=== PATIENT | male | born 1955 | race African-American/Black ===

== ENCOUNTER → 2016-05-15 | Day surgery (SDC) | payer OTHER ==
[~2016-05-15] MED LIST: BUPIVACAINE HCL 0.5 % INJ/PF 30 ML SDV ONE; LIDOCAINE 1% INJ-PF (10 MG/ML) 30 ML SDV ONE; METHYLPREDNISOLONE ACETATE INJ 40 MG/1 ML ML ONE
== END ==
LOC: RAD 12:25
PROVIDERS: ATTEND Radiology Diagnostic Radiology
PROC: 3E0U33Z Introduction of Anti-inflammatory into Joints, Percutaneous Approach (ICD-10-PCS; principal; 2016-05-15)
DX: M16.12 Unilateral primary osteoarthritis, left hip (principal)
CPT/HCPCS: 73501; 20610; 77002; J3490; J1020

== ENCOUNTER → 2016-10-02 | Outpatient (CLI) | payer OTHER ==
[2016-10-02 12:39] LABS: ABSOLUTE EOSINOPHILS # (AUTO) 0.1 10^3/uL (0.0-0.6); ABSOLUTE LYMPHOCYTES (AUTO) 1.4 10^3/uL (0.5-4.7); ABSOLUTE MONOCYTES (AUTO) 0.4 10^3/uL (0.1-1.4); ABSOLUTE NEUT (AUTO) 2.6 10^3/uL (1.7-8.2); BASOPHILS % (AUTO) 0.8 % (0-2); EOSINOPHILS % (AUTO) 1.1 % (0-6); HEMATOCRIT 39.5 % (37.9-51.0); HEMOGLOBIN 12.9 g/dL (13.5-17.0); HGB HCT DIFFERENCE -0.8; LYMPHOCYTES % (AUTO) 30.8 % (13-45); MEAN CORPUSCULAR HEMOGLOBIN 28.4 pg (27.0-33.4); MEAN CORPUSCULAR HGB CONC 32.6 g/dL (32.0-36.0); MEAN CORPUSCULAR VOLUME 87 fl (80-97); MONOCYTES % (AUTO) 9.5 % (3-13); RED BLOOD COUNT 4.55 10^6/uL (4.35-5.55); RED CELL DISTRIBUTION WIDTH 15.5 % (11.5-14.0); SEGMENTED NEUTROPHILS % (AUTO) 57.8 % (42-78); WHITE BLOOD COUNT 4.4 10^3/uL (4.0-10.5)
[2016-10-02 12:50] LABS: APPEARANCE,URINE SLIGHTLY-CLOUDY; BILIRUBIN,URINE NEGATIVE (NEGATIVE); CALCIUM OXALATE CRYSTALS,URINE FEW /HPF; GLUCOSE, URINE NEGATIVE (NEGATIVE); KETONES,URINE NEGATIVE (NEGATIVE); LEUKOCYTE ESTERASE,URINE NEGATIVE (NEGATIVE); NITRITE,URINE NEGATIVE (NEGATIVE); PROTEIN,URINE 30 mg/dL (NEGATIVE); URINE SPECIFIC GRAVITY 1.035
[2016-10-02 13:03] LABS: ANION GAP 11 (5-19); BLOOD UREA NITROGEN 16 mg/dL (7-20); CARBON DIOXIDE 28 mmol/L (22-30); CHLORIDE 102 mmol/L (98-107); CREATININE RESULT 0.97 mg/dL (0.52-1.25); GLUCOSE 130 mg/dL (75-110); POTASSIUM 3.9 mmol/L (3.6-5.0); SODIUM 141.4 mmol/L (137-145)
--- NOTE | 2016-10-02 13:24 | RADIOLOGY REPORT (SQ) ---
EXAM DESCRIPTION: CHEST PA/LATERAL COMPLETED DATE/TIME: 10/02/2016 12:23 pm REASON FOR STUDY: PRE OP COMPARISON: 03/13/2010 EXAM PARAMETERS: NUMBER OF VIEWS: two views TECHNIQUE: Digital Frontal and Lateral radiographic views of the chest acquired. RADIATION DOSE: NA LIMITATIONS: none FINDINGS: LUNGS AND PLEURA: No opacities, masses or pneumothorax. No pleural effusion. There is hyp erexpansion. MEDIASTINUM AND HILAR STRUCTURES: No masses or contour abnormalities. HEART AND VASCULAR STRUCTURES: Heart normal size. No evidence for failure. BONES: No acute findings. HARDWARE: None in the chest. OTHER: No other significant finding. IMPRESSION: Hyperexpansion consistent with COPD. No acute findings. TECHNICAL DOCUMENTATION: JOB ID: [id number] [employer]- All Rights Reserved
--- NOTE | 2016-10-02 20:10 | EKG REPORT ---
SEVERITY:- NORMAL ECG - SINUS RHYTHM : Confirmed by: Jeanne Wilkins 02-Oct-2016 20:08:54
== END ==
LOC: OD 11:38
PROVIDERS: ATTEND Orthopaedic Surgery
DX: Z01.818 Encounter for other preprocedural examination (principal)
CPT/HCPCS: 36415; 71020; 80048; 81001; 85025; 93005; 93010

== ENCOUNTER 2016-10-26 05:22 | Inpatient (IN) | payer OTHER ==
[~2016-10-26 05:22] MED LIST changes: -BUPIVACAINE HCL 0.5 % INJ/PF 30 ML SDV ONE; +BUPIVACAINE INJ/PF LIPOSOME/PF 266 MG/20 ML SDV IJ PRN; +CEFAZOLIN 2 GM/D5W RTU 2 GM/50 ML RTUPB IV PRN; +IBUPROFEN 800 MG/NS 250 ML IV PRN; +LACTATED RINGERS 1000 ML IV PRN; +LANSOPRAZOLE 15 MG TAB.RAP.DR PO PRN; -LIDOCAINE 1% INJ-PF (10 MG/ML) 30 ML SDV ONE; -METHYLPREDNISOLONE ACETATE INJ 40 MG/1 ML ML ONE; +OXYCODONE HCL SR 10 MG TABLET PO PRN; +SCOPOLAMINE HYDROBROMIDE 1.5 MG PATCH.TD72 TOP PRN
[2016-10-26] MEDS ORDERED: THROMBIN (BOVINE) 5000 UNIT EPITAXIS KIT ONE (06:46)
[2016-10-26] MEDS ORDERED: THROMBIN (BOVINE) TOPICAL 20000 UNIT VIAL ONE (06:46)
[2016-10-26] MEDS ORDERED: FENTANYL CITRATE INJ/PF 100 MCG/2 ML AMPUL ONE ×2 (06:52→11:32)
[2016-10-26] MEDS ORDERED: MIDAZOLAM 2 MG/2 ML INJ ONE (06:52)
[2016-10-26] MEDS ORDERED: FENTANYL CITRATE INJ/PF 250 MCG/5 ML AMPULE ONE (06:52)
[2016-10-26] MEDS ORDERED: IBUPROFEN INJ 800 MG/8 ML VIAL IV ONE (06:53)
[2016-10-26] MEDS ORDERED: EPHEDRINE SULFATE INJ 50 MG/1 ML AMPULE ONE (06:53)
[2016-10-26] MEDS ORDERED: PROPOFOL INJ 200 MG/20 ML VIAL IV ONE ×3 (06:53→11:04)
[2016-10-26] MEDS ORDERED: BUPIVACAINE INJ/PF LIPOSOME/PF 266 MG/20 ML SDV ONE (07:25)
[2016-10-26] MEDS ORDERED: KETAMINE HCL INJ 500 MG/10 ML VIAL ONE (07:26)
[2016-10-26] MEDS ORDERED: FENTANYL CITRATE INJ/PF 100 MCG/2 ML AMPUL IV PRN ×3 (09:00)
[2016-10-26] MEDS ORDERED: DIPHENHYDRAMINE HCL 50 MG/ML VIAL IV PRN (09:00)
[2016-10-26] MEDS ORDERED: PROMETHAZINE HCL INJ 25 MG/1 ML VIAL IV PRN (09:00)
--- NOTE | 2016-10-26 11:38 | RADIOLOGY REPORT (SQ) ---
EXAM DESCRIPTION: KNEE LEFT 2 VIEWS COMPLETED DATE/TIME: 10/26/2016 11:23 am REASON FOR STUDY: a/p and lateral in pacu postop M17.12 UNILATERAL PRIMARY OSTEOARTHRITIS, LEFT K NEE COMPARISON: None. NUMBER OF VIEWS: Two view(s). TECHNIQUE: Digital radiographic images of the left knee post-procedure. LIMITATIONS: None. FINDINGS: BONES: No evidence of fracture. Small postoperative bony fragments adjacent to the joint. DEVICE: Total knee arthroplasty. SOFT TISSUES: No worrisome findings. Expected postoperative soft tissue changes. IMPRESSION: Status post left total knee replacement. TECHNICAL DOCUMENTATION: JOB ID: [id number] [employer]- All Rights Reserved
--- NOTE | 2016-10-26 11:52 | Operative Report ---
Operative Report DATE OF SURGERY: 10/26/16 PREOPERATIVE DIAGNOSIS: Left knee osteoarthritis POSTOPERATIVE DIAGNOSIS: Same OPERATION: Left total knee arthroplasty SURGEON: DONA GALVEZ ANESTHESIA: GA TISSUE REMOVED OR ALTERED: none COMPLICATIONS: None ESTIMATED BLOOD LOSS: 50mL INTRAOPERATIVE FINDINGS: as Above PROCEDURE: After receiving preoperative antibiotics patient was brought to the operating room and given a spinal anesthetic. Patient then was placed in supine position and thigh tourniquet was applied to left lower extremity. Left lower extremity was prepped and draped in a normal sterile surgical fashion timeout was done identifying the left knee as the correct site. Extremity was elevated and the tourniquet was inflated at 280 mmHg. Midline incision was done over the knee. Dissection was taken down to the capsule and expose the patellar tendon and quadriceps tendon. I did a medial parapatellar approach to the knee and expose the joint. I resected part of the fat pad and everted the patella and flexed knee at 90. Resected what I could visualize of the lateral and medial meniscus and I transected the ACL and PCL. I proceeded then to prepare the femoral side. I drilled intramedullary and placed the distal cutting guide. It was set at 5 and 10 mm cup. I proceeded to use my saw to do my distal cut and then sized the femur to be a size 6. Placed my 4-in-1 cutting guide and proceeded to do my anterior, posterior and chamfers. Then proceeded to do my box cut with the box jig placed and pinned proper placement. This was removed and I then exposed the tibia where he proceeded to do my first initial tibial cut taking 6 mm off of the high side. Noted that was tight medially so proceeded to take 2 more millimeters. At this point I noticed that 1 of the pins have moved and my cut was often I was in varus I had to proceed to placed the alignment guide and to further resection of the medial side to correct the deformity. At this point I then used the alignment guide and measured again my alignment and line with the tibia through the ankle into the second toe. At this point and I proceeded to trial components and used a [address] up to a 16 spacer. Spacer gave me that ligament balance. Able to get full extension and full flexion. I proceeded to remove the trial components and clean the bone and prepare the tibial side for the tibial tray insertion. This point and I proceeded to cement the tibial tray followed by the femoral tray and the placed a 60 mm spacer. The tibia had been cut to 10 mm and I placed a 35 mm trial after drilling the appropriate holes. The patellar component was cemented in as well. One cement was hardened the excess cement was removed with an osteotome and pickups. Trial of the 16 mm spacer again and I was still satisfied with my ligament balance and in extension and flexion. I removed the trial component and placed a 16 mm final spacer. This was locked in and I proceeded to place my Exparel local anesthetic. Tourniquet was let down at 120 minutes. Any active bleeders were coagulated with the Bovie and pickups. I proceeded to close the capsule using #1 Vicryl and a [id number] interrupted stitch fashion. We approximated subcutaneous tissue with 0 Vicryl in the dermis with 2-0 Vicryl. I used jorge for the skin. The extremity was covered with Acticoat, 4 x 4 dressing, abdominal pads and overwrapped with a soft sterile roll. I will wrapped extremity with Paul bandage and drapes were removed. Patient was then successfully transferred to PACU in a stable condition. Sohail femur size 6 left posterior stabilizing #5 tibial tray 16 mm spacer
[2016-10-26] MEDS ORDERED: LIDOCAINE 2% INJ-PF (20 MG/ML) 10 ML AMPUL ONE (12:51)
[2016-10-26] MEDS ORDERED: ONDANSETRON HCL INJ/PF 4 MG/2 ML SDV ONE (12:51)
[2016-10-26] MEDS: OXYCODONE-ACETAMINOPHEN 5-325 MG TABLET PO PRN (13:18)
[2016-10-26] MEDS: CEFAZOLIN 2 GM/D5W RTU 2 GM/50 ML RTUPB IV SCH ×2 (13:41→22:03)
[2016-10-26] MEDS ORDERED: NORMAL SALINE 1000 ML 1,000 ML IV ONE (15:45)
[2016-10-26] MEDS: RINGERS SOLUTION,LACTATED 1,000 ML IV PRN ×2 (16:36→22:03)
[2016-10-26] MEDS: DOCUSATE SODIUM 100 MG CAPSULE PO SCH (17:29)
[2016-10-26] MEDS: MORPHINE SULFATE 10 MG/ML INJ IV PRN ×2 (17:41→20:25)
[2016-10-27] MEDS: MORPHINE SULFATE 10 MG/ML INJ IV PRN ×4 (01:08→09:42)
[2016-10-27 06:34] LABS: ABSOLUTE LYMPHOCYTES (AUTO) 0.8 10^3/uL (0.5-4.7); ABSOLUTE NEUT (AUTO) 6.3 10^3/uL (1.7-8.2); BASOPHILS % (AUTO) 0.4 % (0-2); HEMATOCRIT 27.8 % (37.9-51.0); HEMOGLOBIN 9.4 g/dL (13.5-17.0); HGB HCT DIFFERENCE 0.4; LYMPHOCYTES % (AUTO) 10.4 % (13-45); MEAN CORPUSCULAR VOLUME 85 fl (80-97); RED BLOOD COUNT 3.26 10^6/uL (4.35-5.55); RED CELL DISTRIBUTION WIDTH 15.2 % (11.5-14.0); SEGMENTED NEUTROPHILS % (AUTO) 77.2 % (42-78); WHITE BLOOD COUNT 8.1 10^3/uL (4.0-10.5)
[2016-10-27 06:52] LABS: ANION GAP 10 (5-19); BLOOD UREA NITROGEN 11 mg/dL (7-20); CALCIUM 9.4 mg/dL (8.4-10.2); CARBON DIOXIDE 26 mmol/L (22-30); CHLORIDE 100 mmol/L (98-107); CREATININE RESULT 0.86 mg/dL (0.52-1.25); GLUCOSE 118 mg/dL (75-110); POTASSIUM 3.9 mmol/L (3.6-5.0); SODIUM 136.3 mmol/L (137-145)
[2016-10-27] MEDS: DOCUSATE SODIUM 100 MG CAPSULE PO SCH ×2 (09:42→17:16)
[2016-10-27] MEDS: AMLODIPINE BESYLATE 10 MG TABLET PO SCH (09:42)
[2016-10-27] MEDS: OXYCODONE-ACETAMINOPHEN 5-325 MG TABLET PO PRN ×2 (12:54→20:20)
--- NOTE | 2016-10-27 15:47 | PDOC PROGRESS REPORT ---
Subjective Progress Note for:: 10/27/16 Subjective:: Patient is resting in bed. Complaining of left knee pain. Patient states he was sore in painful and cannot participate with therapy today. Otherwise no issues overnight. Physical Exam Vital Signs: Temp Pulse Resp BP Pulse Ox 36.7 C 86 14 146/76 H 97 10/26/16 23:53 10/27/16 05:00 10/26/16 23:53 10/27/16 05:00 10/27/16 03:39 Intake & Output 10/26/16 10/27/16 10/28/16 06:59 06:59 06:59 Intake Total 0 5290 Output Total 2600 Balance 0 2690 General appearance: PRESENT: no acute distress Adult Front & Back Image: 1 - Dressing is dry clean and intact. Soft calves to palpation. Neurovascular intact distally with good capillary refill and pulse and good sensation to light touch. Motor 5 out of 5 on exam. Results Laboratory Results: 10/27/16 06:23 10/27/16 06:23 10/27/16 10/27/16 06:23 06:23 WBC 8.1 RBC 3.26 L Hgb 9.4 L Hct 27.8 L MCV 85 MCH 29.0 MCHC 34.0 RDW 15.2 H Plt Count 200 Seg Neutrophils % 77.2 Lymphocytes % 10.4 L Monocytes % 12.0 Eosinophils % 0.0 Basophils % 0.4 Absolute Neutrophils 6.3 Absolute Lymphocytes 0.8 Absolute Monocytes 1.0 Absolute Eosinophils 0.0 Absolute Basophils 0.0 Sodium 136.3 L Potassium 3.9 Chloride 100 Carbon Dioxide 26 Anion Gap 10 BUN 11 Creatinine 0.86 Est GFR ( Amer) > 60 Est GFR (Non-Af Amer) > 60 Glucose 118 H Calcium 9.4 Impressions: Knee X-Ray 10/26/16 11:08 IMPRESSION: Status post left total knee replacement. Assessment & Plan - Plan Summary Plan Summary: 61-year-old gentleman postop day 1 from left total knee arthroplasty. Explain the necessity to participate with physical therapy to allow him to go home. Patient states he will work with him and attempt to be discharged home. He has walked 100 feet so he probably will be started with home health at discharge tomorrow or Sunday. Continue Xarelto for DVT prophylaxis and continue Percocet for pain control.
[2016-10-27] MEDS: RIVAROXABAN 10 MG TABLET PO SCH (21:31)
[2016-10-28] MEDS: OXYCODONE-ACETAMINOPHEN 5-325 MG TABLET PO PRN ×3 (04:40→12:40)
[2016-10-28 05:38] LABS: ABSOLUTE LYMPHOCYTES (AUTO) 0.9 10^3/uL (0.5-4.7); ABSOLUTE MONOCYTES (AUTO) 1.7 10^3/uL (0.1-1.4); BASOPHILS % (AUTO) 0.2 % (0-2); HEMATOCRIT 24.6 % (37.9-51.0); HEMOGLOBIN 8.3 g/dL (13.5-17.0); HGB HCT DIFFERENCE 0.3; LYMPHOCYTES % (AUTO) 8.6 % (13-45); MEAN CORPUSCULAR HEMOGLOBIN 28.5 pg (27.0-33.4); MEAN CORPUSCULAR HGB CONC 33.8 g/dL (32.0-36.0); MEAN CORPUSCULAR VOLUME 84 fl (80-97); MONOCYTES % (AUTO) 16.1 % (3-13); RED BLOOD COUNT 2.92 10^6/uL (4.35-5.55); RED CELL DISTRIBUTION WIDTH 15.1 % (11.5-14.0); SEGMENTED NEUTROPHILS % (AUTO) 75.1 % (42-78); WHITE BLOOD COUNT 10.7 10^3/uL (4.0-10.5)
[2016-10-28 05:54] LABS: ANION GAP 10 (5-19); BLOOD UREA NITROGEN 9 mg/dL (7-20); CALCIUM 9.7 mg/dL (8.4-10.2); CARBON DIOXIDE 28 mmol/L (22-30); CHLORIDE 97 mmol/L (98-107); CREATININE RESULT 0.82 mg/dL (0.52-1.25); GLUCOSE 122 mg/dL (75-110); POTASSIUM 3.8 mmol/L (3.6-5.0); SODIUM 134.7 mmol/L (137-145)
[2016-10-28] MEDS: AMLODIPINE BESYLATE 10 MG TABLET PO SCH (09:11)
[2016-10-28] MEDS: DOCUSATE SODIUM 100 MG CAPSULE PO SCH ×2 (09:11→17:12)
--- NOTE | 2016-10-28 11:23 | PDOC PROGRESS REPORT ---
Subjective Progress Note for:: 10/28/16 Subjective:: Patient without specific complaints except anorexia Physical Exam Vital Signs: Temp Pulse Resp BP Pulse Ox 37.0 C 105 H 14 143/75 H 94 10/28/16 07:43 10/28/16 07:43 10/28/16 07:43 10/28/16 07:43 10/28/16 07:43 Intake & Output 10/27/16 10/28/16 10/29/16 06:59 06:59 06:59 Intake Total 5290 1013 Output Total 2600 2600 Balance 2690 -1587 General appearance: PRESENT: no acute distress Head exam: PRESENT: normocephalic Eye exam: PRESENT: EOMI Respiratory exam: PRESENT: unlabored Cardiovascular exam: PRESENT: RRR Pulses: PRESENT: +1 pedal pulses bilateral GI/Abdominal exam: PRESENT: soft Rectal exam: PRESENT: deferred Extremities exam: PRESENT: other - Left lower extremity dressing changed. Wound is clean dry and intact. OpSite applied. Neurological exam: PRESENT: alert, awake, oriented to person, oriented to place , oriented to time, oriented to situation. ABSENT: motor sensory deficit Psychiatric exam: PRESENT: appropriate affect, normal mood. ABSENT: homicidal ideation, suicidal ideation Skin exam: PRESENT: dry, intact, warm. ABSENT: cyanosis, rash Results Laboratory Results: 10/28/16 05:29 10/28/16 05:29 10/28/16 10/28/16 05:29 05:29 WBC 10.7 H RBC 2.92 L Hgb 8.3 L Hct 24.6 L MCV 84 MCH 28.5 MCHC 33.8 RDW 15.1 H Plt Count 185 Seg Neutrophils % 75.1 Lymphocytes % 8.6 L Monocytes % 16.1 H Eosinophils % 0.0 Basophils % 0.2 Absolute Neutrophils 8.0 Absolute Lymphocytes 0.9 Absolute Monocytes 1.7 H Absolute Eosinophils 0.0 Absolute Basophils 0.0 Sodium 134.7 L Potassium 3.8 Chloride 97 L Carbon Dioxide 28 Anion Gap 10 BUN 9 Creatinine 0.82 Est GFR ( Amer) > 60 Est GFR (Non-Af Amer) > 60 Glucose 122 H Calcium 9.7 Impressions: Knee X-Ray 10/26/16 11:08 IMPRESSION: Status post left total knee replacement. Status: Imported from PACS Assessment & Plan - Diagnosis (1) Arthritis of knee, left Is this a current diagnosis for this admission?: Yes Plan: Patient postop day 2 left knee arthroplasty ambulating 80 feet. Plan for continued hospitalization and ongoing physical therapy (2) Acute blood loss as cause of postoperative anemia Is this a current diagnosis for this admission?: Yes Plan: Current hematocrits 24.6%. Patient is asymptomatic from systemic standpoint. We will continue to observe for the patient's request - Time Time Spent with patient: 15-24 minutes Anticipated discharge: Home with Homehealth Within: within 24 hours
[2016-10-28] MEDS: RIVAROXABAN 10 MG TABLET PO SCH (22:08)
[2016-10-29 06:31] LABS: HEMATOCRIT 21.6 % (37.9-51.0); HGB HCT DIFFERENCE 0.6; MEAN CORPUSCULAR HEMOGLOBIN 28.9 pg (27.0-33.4); MEAN CORPUSCULAR HGB CONC 34.3 g/dL (32.0-36.0); MEAN CORPUSCULAR VOLUME 84 fl (80-97); RED BLOOD COUNT 2.56 10^6/uL (4.35-5.55); RED CELL DISTRIBUTION WIDTH 14.7 % (11.5-14.0); WHITE BLOOD COUNT 11.6 10^3/uL (4.0-10.5)
[2016-10-29 06:47] LABS: ANION GAP 10 (5-19); BLOOD UREA NITROGEN 12 mg/dL (7-20); CALCIUM 9.4 mg/dL (8.4-10.2); CARBON DIOXIDE 28 mmol/L (22-30); CHLORIDE 96 mmol/L (98-107); CREATININE RESULT 0.91 mg/dL (0.52-1.25); GLUCOSE 118 mg/dL (75-110); POTASSIUM 4.1 mmol/L (3.6-5.0); SODIUM 134.4 mmol/L (137-145)
[2016-10-29 07:08] LABS: HEMOGLOBIN 7.4 g/dL (13.5-17.0)
[2016-10-29 07:12] LABS: BAND NEUTROPHILS % (MANUAL) 7 % (3-5); BASOPHILS % (MANUAL) 0 % (0-2); EOSINOPHILS % (MANUAL) 0 % (0-6); LYMPHOCYTES % (MANUAL) 7 % (13-45); TOTAL CELLS COUNTED 100
[2016-10-29 07:14] LABS: ANISOCYTOSIS SLIGHT; PLATELET CLUMPS PRESENT; POIKILOCYTOSIS SLIGHT; TARGET CELLS 2+; TOXIC GRANULATION SLIGHT; TOXIC VACUOLATION PRESENT
[2016-10-29] MEDS: AMLODIPINE BESYLATE 10 MG TABLET PO SCH (09:37)
[2016-10-29] MEDS: DOCUSATE SODIUM 100 MG CAPSULE PO SCH (09:37)
[2016-10-29] MEDS ORDERED: ACETAMINOPHEN 325 MG TABLET PO PRN (12:20)
[2016-10-29 15:23] VITALS: BP 138/71
== END 2016-10-29 16:00 | disposition home health service (06) | DRG 470 ==
LOC: INOR 05:22 → UNDOADMIN 05:22 → INOR 11:53 → 4S 11:53 → INOR 12:37
PROVIDERS: ADMIT Orthopaedic Surgery; ATTEND Orthopaedic Surgery
PROC: 0SRD0J9 Replacement of Left Knee Joint with Synthetic Substitute, Cemented, Open Approach (ICD-10-PCS; principal; 2016-10-26 07:30)
PROC: 30233N1 Transfusion of Nonautologous Red Blood Cells into Peripheral Vein, Percutaneous Approach (ICD-10-PCS; 2016-10-29)
DX: M17.12 Unilateral primary osteoarthritis, left knee (principal); D62 Acute posthemorrhagic anemia; F17.200 Nicotine dependence, unspecified, uncomplicated
CPT/HCPCS: 01402; 36415; 36430; 80048; 85025; 86850; 86900; 86901; 86920; 88305; 88311; C2625; C9290; J0690; J1741; J2250; J2270; J2405; J2704; J3010; J3490; J7030; J7050; J7120; P9016

== ENCOUNTER → 2016-11-13 | Outpatient (CLI) | payer BC ==
--- NOTE | 2016-11-13 12:34 | RADIOLOGY REPORT (SQ) ---
EXAM DESCRIPTION: HIP LEFT AP/LATERAL COMPLETED DATE/TIME: 11/13/2016 11:48 am REASON FOR STUDY: PAIN IN LEFT HIP M25.552 PAIN IN LEFT HIP COMPARISON: None. NUMBER OF VIEWS: Two views. TECHNIQUE: AP pelvis and additional frog-leg view of the left hip. LIMITATIONS: None. FINDINGS: MINERALIZATION: Normal. LEFT HIP: No fracture or dislocation. Marginal osteophytes are seen on the femoral head. RIGHT HIP: No fracture or dislocation. Marginal osteophytes are seen on the femoral head. PUBIS AND ISCHIUM: No fracture. PELVIS: No fracture. SACRUM: No fracture or dislocation. No worrisome bone lesions. LOWER LUMBAR SPINE: Lumbosacral spondylosis is present with bridging osteophytes on the left at L5-S1 . SOFT TISSUES: No findings. OTHER: No other significant finding. IMPRESSION: Lumbosacral degenerative changes. Degenerative joint changes in both hips. TECHNICAL DOCUMENTATION: JOB ID: [id number] [employer]- All Rights Reserved
== END ==
LOC: OD 11:13
PROVIDERS: ATTEND Internal Medicine
DX: M25.552 Pain in left hip (principal)

== ENCOUNTER 2018-02-14 09:03 | Inpatient (IN) | payer OTHER, BC ==
[2018-03-14] MEDS ORDERED: OXYCODONE HCL SR 10 MG TABLET PO PRN (05:00)
[2018-03-14] MEDS ORDERED: RINGERS SOLUTION,LACTATED 1,000 ML IV PRN ×2 (05:00→09:55)
[2018-03-14] MEDS ORDERED: LANSOPRAZOLE 15 MG TAB.RAP.DR PO PRN (05:00)
[2018-03-14] MEDS ORDERED: BUPIVACAINE INJ/PF LIPOSOME/PF 266 MG/20 ML SDV IJ PRN (05:00)
[2018-03-14] MEDS ORDERED: CEFAZOLIN 2 GM/D5W RTU 2 GM/50 ML RTUPB IV PRN (05:00)
[2018-03-14] MEDS ORDERED: IBUPROFEN 800 MG/NS 250 ML IV PRN ×2 (05:00)
[2018-03-14] MEDS ORDERED: CEFAZOLIN 2 GM/D5W RTU 2 GM/50 ML RTUPB IV ONE (05:36)
[2018-03-14] MEDS ORDERED: LANSOPRAZOLE 15 MG TAB.RAP.DR ONE (05:36)
[2018-03-14] MEDS ORDERED: OXYCODONE HCL SR 10 MG TABLET PO ONE (05:37)
[2018-03-14] MEDS ORDERED: LIDOCAINE 2% INJ-PF (20 MG/ML) 10 ML AMPUL ONE (06:43)
[2018-03-14] MEDS ORDERED: FENTANYL CITRATE INJ/PF 100 MCG/2 ML AMPUL ONE (06:43)
[2018-03-14] MEDS ORDERED: PROMETHAZINE HCL INJ 25 MG/1 ML VIAL ONE (06:43)
[2018-03-14] MEDS ORDERED: DEXAMETHASONE SOD PHOSPHATE INJ 4 MG/1 ML VIAL ONE (06:44)
[2018-03-14] MEDS ORDERED: ONDANSETRON HCL INJ/PF 4 MG/2 ML SDV ONE (06:44)
[2018-03-14] MEDS ORDERED: MIDAZOLAM 2 MG/2 ML INJ ONE (06:44)
[2018-03-14] MEDS ORDERED: EPHEDRINE SULFATE INJ 50 MG/1 ML AMPULE ONE (06:44)
[2018-03-14] MEDS ORDERED: PROPOFOL INJ 200 MG/20 ML VIAL IV ONE (06:44)
[2018-03-14] MEDS ORDERED: ACETAMINOPHEN 1,000 MG/100 ML RTUPB IV ONE (06:45)
[2018-03-14] MEDS ORDERED: LIDOCAINE 2% INJ (20 MG/ML) 20 ML MDV ONE (06:45)
[2018-03-14] MEDS ORDERED: BUPIVACAINE HCL/DEX-WATER/PF 15 MG/2 ML AMPULE ONE (06:46)
[2018-03-14] MEDS ORDERED: THROMBIN (BOVINE) TOPICAL 20000 UNIT VIAL ONE (07:07)
[2018-03-14] MEDS ORDERED: BUPIVACAINE INJ/PF LIPOSOME/PF 266 MG/20 ML SDV ONE (07:07)
[2018-03-14] MEDS ORDERED: TRANEXAMIC ACID INJ/PF 1,000 MG/10 ML SDV IV ONE ×2 (07:33→10:26)
[2018-03-14] MEDS ORDERED: DIPHENHYDRAMINE HCL 50 MG/ML VIAL IV PRN (08:08)
[2018-03-14] MEDS ORDERED: PROMETHAZINE HCL INJ 25 MG/1 ML VIAL IV PRN ×2 (08:08)
[2018-03-14] MEDS ORDERED: FENTANYL CITRATE INJ/PF 100 MCG/2 ML AMPUL IV PRN ×3 (08:08)
[2018-03-14] MEDS ORDERED: MORPHINE SULFATE 10 MG/ML INJ IV PRN (08:08)
[2018-03-14] MEDS ORDERED: MEPERIDINE HCL/PF INJ 25 MG/1 ML DISP.SYRIN IV PRN (08:08)
--- NOTE | 2018-03-14 09:53 | Operative Report ---
Operative Report DATE OF SURGERY: 03/14/18 PREOPERATIVE DIAGNOSIS: Right knee osteoarthritis POSTOPERATIVE DIAGNOSIS: Same OPERATION: Right knee total arthroplasty SURGEON: DONA GALVEZ ANESTHESIA: Spinal TISSUE REMOVED OR ALTERED: None COMPLICATIONS: None ESTIMATED BLOOD LOSS: 50 mL INTRAOPERATIVE FINDINGS: As above PROCEDURE: Patient received preoperative antibiotics and was taken to the operating room where she received spinal anesthetic. Patient was placed supine position and a thigh tourniquet was applied to left lower extremity. A bump was applied under buttocks and then the right lower extremity was prepped and draped in a normal sterile surgical fashion. Timeout was done identifying the right knee as the correct site. Esmarch was used to exsanguinate the extremity and the tourniquet was inflated at 300 mmHg. Of note we deflated tourniquet at the end of the pro cedure at 90 minutes. Midline incision was done over the knee and dissection was taken down to the retinaculum and extensor mechanism and a paramedial arthrotomy was done exposing the knee. Patient had [id number] osteoarthritis as confirmed by x-ray with mild joint effusion. We then proceeded to do a medial release and excision of the medial meniscus and lateral meniscus. We moved remove the fat pad and then we flexed the knee at 90 and then remove the ACL and PCL as well. We subluxed the tibia anteriorly and placed the retractors and proceeded to do our tibial cut first. We drilled intramedullary and placed our intramedullary guide and pin the guide by measuring off the medial side which was the low side. We proceeded to do our tibial cut successfully. I was satisfied with the cut so I then proceeded to turn my attention to the femoral side and drilled intramedullary and then placed my intramedullary guide to do my distal femoral cut. We proceeded to us to pin it in place and then do our use a saw to do my distal femoral cut. Once I was satisfied with my distal femoral cut I removed the guide and then use a spacer to confirm proper balance. Initially I felt that my extension gap was balanced with 9 mm spacer. I placed the next jig to make sure it was 3degrees externally rotated and parallel with the epicondylar axis. This allowed me to measure the femur. This was removed and I did proceed to size and do my 4-in-1 cutting block of the femur. I measured and used a size 6 and proceeded to do my 4 and 1 cuts. I then placed the box blank machine feeder and then do the resected my box portion with a receptive saw and osteotome. I trialed the 6 femur with a size 6 tibia and 11 spacer. I was satisfied with the flexion extension side proceeded to do my patellar cut using the guide. The patella measured 24 mm and we proceeded to resect 10 mm and left 14 mm behind after my cut was completed. I drilled the holes and placed the trial component 35 and placed in range of motion. I was satisfied with her range of motion and stability so I proceeded to remove all the implants and opened final components of the tibial tray, femur and patella button. I still use the trialed spacers at the end for repeat examination. Once I used copious irrigation and pulse lavage to clean out the bone I then proceeded to mix cement and appropriately cement the tibial component first and remove the excess cement. I then cemented the femoral component and remove the excess cement. I placed a trial spacer and cemented my patellar button. We waited until the cement had hardened and then needed to inject Exparel in the posterior capsule and periosteum. I then proceeded to put the final polyethylene spacer that measured 11 at this point I proceeded to do my. Closure where I used #1 Vicryl for the arthrotomy and quadriceps tendon. I used thrombin for the knee and then I proceeded to close the subcutaneous fat with 0 Vicryl and 2-0 Vicryl for dermis and jorge for skin. 4 x 4 dressing and OpSite dressing was applied the extremity was wrapped with soft roll and Paul bandage. Tourniquet was let down and drapes were removed. Patient was then transferred to PACU in stable condition.
[2018-03-14] MEDS ORDERED: ONDANSETRON HCL INJ/PF 4 MG/2 ML SDV IV PRN (09:55)
[2018-03-14] MEDS ORDERED: MAG HYDROX/AL HYDROX/SIMETH SUSP 30 ML UDCUP PO PRN (09:55)
[2018-03-14] MEDS ORDERED: OXYCODONE-ACETAMINOPHEN 5-325 MG TABLET PO PRN (09:59)
--- NOTE | 2018-03-14 11:08 | RADIOLOGY REPORT (SQ) ---
EXAM DESCRIPTION: KNEE RIGHT 2 VIEWS COMPLETED DATE/TIME: 03/14/2018 10:19 am REASON FOR STUDY: Post OP -Long Cassette in PACU M17.11 UNILATERAL PRIMARY OSTEOARTHRITIS, RIGHT KN EE COMPARISON: None. NUMBER OF VIEWS: Two views TECHNIQUE: Digital radiographic images of the right knee post-procedure. LIMITATIONS: None. FINDINGS: BONES: No worrisome or unexpected findings post-procedure. DEVICE: Right total knee replacement with patellar resurfacing. Good alignment SOFT TISSUES: No worrisome findings. Expected postoperative soft tissue changes. IMPRESSION: SATISFACTORY POSTOPERATIVE RIGHT KNEE. TECHNICAL DOCUMENTATION: JOB ID: [id number] [employer]- All Rights Reserved Reading location - IP/workstation name: [email or web address]
[2018-03-14] MEDS ORDERED: CEFAZOLIN 2 GM/D5W RTU 50 ML IV SCH (12:00)
[2018-03-14] MEDS: CEFAZOLIN SODIUM 2 GM in DEXTROSE 5%-WATER 100 ML IV SCH ×2 (13:58→17:20)
[2018-03-14] MEDS: SENNOSIDES/DOCUSATE 8.6-50 MG 1 EACH TABLET PO SCH (17:22)
[2018-03-14] MEDS: OXYCODONE HCL SR 10 MG TABLET PO SCH (22:14)
[2018-03-14] MEDS: IBUPROFEN 800 MG in NORMAL SALINE 250 ML IV SCH (22:15)
[2018-03-15] MEDS: CEFAZOLIN SODIUM 2 GM in DEXTROSE 5%-WATER 100 ML IV SCH ×3 (00:02→14:28)
[2018-03-15] MEDS: OXYCODONE-ACETAMINOPHEN 5-325 MG TABLET PO PRN ×2 (00:09→09:06)
[2018-03-15] MEDS: IBUPROFEN 800 MG in NORMAL SALINE 250 ML IV SCH ×2 (05:29→14:28)
[2018-03-15] MEDS ORDERED: LANSOPRAZOLE 30 MG TAB.RAP.DR PO SCH (06:00)
[2018-03-15] MEDS ORDERED: PREGABALIN 75 MG CAPSULE PO SCH (06:00)
[2018-03-15 07:10] LABS: HEMATOCRIT 29.5 % (37.9-51.0); HEMOGLOBIN 9.7 g/dL (13.5-17.0); MEAN CORPUSCULAR HEMOGLOBIN 27.7 pg (27.0-33.4); MEAN CORPUSCULAR VOLUME 84 fl (80-97); PLATELET COUNT 210 10^3/uL (150-450); RED BLOOD COUNT 3.51 10^6/uL (4.35-5.55); RED CELL DISTRIBUTION WIDTH 15.1 % (11.5-14.0); WHITE BLOOD COUNT 8.9 10^3/uL (4.0-10.5)
[2018-03-15 07:30] LABS: ANION GAP 6 (5-19); BLOOD UREA NITROGEN 14 mg/dL (7-20); CALCIUM 8.8 mg/dL (8.4-10.2); CARBON DIOXIDE 28 mmol/L (22-30); CHLORIDE 106 mmol/L (98-107); GLUCOSE 143 mg/dL (75-110); POTASSIUM 4.2 mmol/L (3.6-5.0); SODIUM 139.5 mmol/L (137-145)
[2018-03-15] MEDS: OXYCODONE HCL SR 10 MG TABLET PO SCH (09:05)
[2018-03-15] MEDS: SENNOSIDES/DOCUSATE 8.6-50 MG 1 EACH TABLET PO SCH (09:06)
[2018-03-15] MEDS ORDERED: PRENATAL VITAMIN W DHA CAPSULE PO SCH (10:00)
--- NOTE | 2018-03-15 14:56 | PDOC DISCHARGE SUMMARY ---
General - Admit/Disc Date/PCP Admission Date/Primary Care Provider: 03/14/18 05:26 [facility] Discharge Date: 03/15/18 - Discharge Diagnosis (1) Total knee replacement status Is this a current diagnosis for this admission?: Yes - Additional Information Resuscitation Status: Full Code Home Medications: Acetaminophen [Tylenol Extra Strength 500 mg Tablet] 500 mg PO Q12HP PRN 03/14/18 Ferrous Sulfate [Feosol 325 mg Tablet] 325 mg PO DAILY 03/14/18 Gabapentin [Neurontin 300 mg Capsule] 300 mg PO DAILYP PRN 03/14/18 Multivitamin [Tab-A-Fabian (Multiple Vitamin) Tablet] 1 tab PO DAILY 03/14/18 History of Present Illness History of Present Illness: LEONILA HERBERT is a 63 year old male who has osteoarthritis of the right knee. Patient has Efe had left knee arthroplasty and was see me for c onservative treatment of his right knee but patient eventually decided to proceed with a right total knee arthroplasty after he had a excellent recovery from the left knee. Risks and benefits were discussed the patient agreed and consented and proceeded to have the surgery done by myself on 03/14/2018 Hospital Course Hospital Course: Patient underwent right total knee arthroplasty on 03/14/2018. No issues. No complications. Postop day 1 patient ambulated 300 feet with physical therapy and a walker. States his pain is adequately controlled. Ready for discharge and home health today. Patient will be discharged accordingly and told to follow-up in the office in 10-14 days. Structure to weight-bear as tolerated and do range of motion as tolerated. Told to ice and elevate when not ambulating. Also stated to remove the dressing in 4 days and then okay to shower. Physical Exam Vital Signs: Temp Pulse Resp BP Pulse Ox 36.7 C 71 16 116/94 H 97 03/15/18 11:00 03/15/18 11:00 03/15/18 11:00 03/15/18 11:00 03/15/18 11:00 Intake & Output 03/14/18 03/15/18 03/16/18 06:59 06:59 06:59 Intake Total 0 5744 Output Total 1050 Balance 0 4694 Weight 76.7 kg General appearance: PRESENT: no acute distress Head exam: PRESENT: atraumatic, normocephalic Adult Front & Back Image: 1 - Dressing dry clean and intact. -10 degrees of extension to about 70 degrees of flexion. Soft calf with negative Homans sign. He has good sensation to light touch distally with intact motor 5 out of 5 distally Results Laboratory Results: 03/15/18 05:50 03/15/18 05:50 03/15/18 03/15/18 05:50 05:50 WBC 8.9 RBC 3.51 L Hgb 9.7 L Hct 29.5 L MCV 84 MCH 27.7 MCHC 33.0 RDW 15.1 H Plt Count 210 Sodium 139.5 Potassium 4.2 Chloride 106 Carbon Dioxide 28 Anion Gap 6 BUN 14 Creatinine 0.94 Est GFR ( Amer) > 60 Est GFR (Non-Af Amer) > 60 Glucose 143 H Calcium 8.8 Impressions: Knee X-Ray 03/14/18 09:56 IMPRESSION: SATISFACTORY POSTOPERATIVE RIGHT KNEE. Status: Image reviewed by me Qualifiers - * PATIENT BEING DISCHARGED WITH ANY OF THE FOLLOWING DIAGNOSIS: No VTE patient discharged on overlapping Therapy?: Yes Plan Discharge Plan: 63-year-old gentleman who on postop day 1 progressed very well with physical therapy. Pain is adequately controlled with Percocet. Patient will be discharged today postop day 1 after undergoing right total knee arthroplasty uneventfully. Prescription for Percocet, Xarelto, Colace were provided to the patient. Patient will change his dressing in 4 days and follow-up in my office in 10-14 days. Home health is set up to see the patient.
[2018-03-15 14:57] VITALS: BP 121/69
[2018-03-15] MEDS ORDERED: RIVAROXABAN 10 MG TABLET PO SCH (17:00)
[2018-03-17] MEDS ORDERED: LANSOPRAZOLE 15 MG TAB.RAP.DR PO PRN (05:00)
[2018-03-17] MEDS ORDERED: BUPIVACAINE INJ/PF LIPOSOME/PF 266 MG/20 ML SDV IJ PRN (05:00)
[2018-03-17] MEDS ORDERED: IBUPROFEN 800 MG/NS 250 ML IV PRN ×2 (05:00)
[2018-03-17] MEDS ORDERED: OXYCODONE HCL SR 10 MG TABLET PO PRN (05:00)
== END 2018-03-15 15:08 | disposition home or self-care (01) | DRG 470 ==
LOC: INOR 03-14 05:26 → 4S 03-14 10:57
PROVIDERS: ADMIT Orthopaedic Surgery; ATTEND Orthopaedic Surgery
PROC: 0SRC0J9 Replacement of Right Knee Joint with Synthetic Substitute, Cemented, Open Approach (ICD-10-PCS; principal; 2018-03-14 07:30)
DX: M17.11 Unilateral primary osteoarthritis, right knee (principal); F17.210 Nicotine dependence, cigarettes, uncomplicated; Z79.899 Other long term (current) drug therapy
CPT/HCPCS: 01402; 36415; 80048; 85027; 88305; 88311; 94799; C1713; C1776; C9290; J0131; J0690; J1100; J1741; J2250; J2405; J2550; J2704; J3010; J3490; J7050; J7120

== ENCOUNTER 2019-04-20 14:12 | Emergency (ER) | payer OTHER, MEDICARE, BC ==
--- NOTE | 2019-04-20 14:24 | ER Document Report ---
ED Medical Screen (RME) - General Chief Complaint: General Weakness Stated Complaint: GENERAL WEAKNESS Time Seen by Provider: 04/20/19 14:19 Primary Care Provider: JACQUELINE GARCIA [Primary Care Provider] - Follow up as needed TRAVEL OUTSIDE OF THE [place] IN LAST 30 DAYS: No - Related Data Allergies/Adverse Reactions: No Known Allergies Allergy (Verified 02/06/18 08:47) Past Medical History - General Information source: Patient - Social History Cigarette use (# per day): Yes - Half pack a day Frequency of alcohol use: Social Drug Abuse: None Lives with: Family Family history: Reviewed & Not Pertinent - Medical History Medical History: Other - Anemia - Past Medical History Cardiac Medical History: Reports: Hx Hypertension - norvasc prescribed, pt states doesn't take Pulmonary Medical History: Reports: Hx Pneumonia EENT Medical History: Reports: None Neurological Medical History: Reports: None Endocrine Medical History: Reports: None Renal/ Medical History: Reports: None Malignancy Medical History: Reports None Musculoskeltal Medical History: Reports Hx Arthritis - knees, Reports Hx Musculoskeletal Deformity Skin Medical History: Reports None Psychiatric Medical History: Reports: None Traumatic Medical History: Reports: None Infectious Medical History: Reports: None Past Surgical History: Reports: Hx Orthopedic Surgery - Lateral knee replacement - Immunizations Immunizations up to date: Yes Hx Diphtheria, Pertussis, Tetanus Vaccination: No Doctor's Discharge - Discharge Referrals: RADHA,JACQUELINE [Primary Care Provider] - Follow up as needed
[2019-04-20] MEDS ORDERED: ASPIRIN 81 MG TABLET, CHEWABLE PO ONE (14:25)
--- NOTE | 2019-04-20 15:08 | ER Document Report ---
ED General - General Chief Complaint: General Weakness Stated Complaint: GENERAL WEAKNESS Time Seen by Provider: 04/20/19 14:19 Primary Care Provider: RADHA,JACQUELINE [Primary Care Provider] - Follow up as needed TRAVEL OUTSIDE OF THE [place] IN LAST 30 DAYS: No - HPI Notes: Patient is a 64-year-old male with a history of anemia and chronic low back pain presents complaining of having some chest tightness for the past 4 to 5 days and feeling generally weak. Patient states that he did finish steroids about a week ago for his back and symptoms started soon after. Patient states that he is going to get scheduled for a back surgery. He is currently under the care of pain management. He is able to eat and drink without difficulty. He is urinating normally and having normal bowel movements. No recent illness. Denies any headache, fever, neck pain, changes in vision/speech/me ntation/hearing, URI, sore throat, palpitations, syncope, cough, wheeze, dyspnea, abdominal pain, nausea/vomiting/diarrhea, urinary retention, dysuria, hematuria, loss of control of bowel or bladder, saddle anesthesia, muscle paralysis, or rash. - Related Data Allergies/Adverse Reactions: No Known Allergies Allergy (Verified 02/06/18 08:47) Past Medical History - General Information source: Patient - Social History Smoking Status: Current Every Day Smoker Cigarette use (# per day): Yes - Half pack a day Frequency of alcohol use: Social Drug Abuse: None Lives with: Family Family History: Reviewed & Not Pertinent Patient has suicidal ideation: No Patient has homicidal ideation: No - Medical History Medical History: Other - Anemia - Past Medical History Cardiac Medical History: Reports: Hx Hypertension - norvasc prescribed, pt states doesn't take Pulmonary Medical History: Reports: Hx Pneumonia EENT Medical History: Reports: None Neurological Medical History: Reports: None Endocrine Medical History: Reports: None Renal/ Medical History: Reports: None Malignancy Medical History: Reports None Musculoskeletal Medical History: Reports Hx Arthritis - knees, Reports Hx Musculoskeletal Deformity Skin Medical History: Reports None Psychiatric Medical History: Reports: None Traumatic Medical History: Reports: None Infectious Medical History: Reports: None Past Surgical History: Reports: Hx Orthopedic Surgery - Lateral knee replacement - Immunizations Immunizations up to date: Yes Hx Diphtheria, Pertussis, Tetanus Vaccination: No Review of Systems - Review of Systems -: Yes All other systems reviewed and negative Physical Exam - Vital signs Vitals: Temp Pulse Resp BP Pulse Ox 98.0 F 86 18 133/81 H 97 04/20/19 14:18 04/20/19 14:18 04/20/19 14:18 04/20/19 14:18 04/20/19 14:18 - Notes Notes: PHYSICAL EXAMINATION: GENERAL: Well-appearing, well-nourished and in no acute distress. A&Ox4. answers questions appropriately. HEAD: Atraumatic, normocephalic. EYES: Pupils equal round and reactive to light, extraocular movements intact, sclera anicteric, conjunctiva are normal. ENT: Nares patent and without discharge. oropharynx clear without exudates. No tonsilar hypertrophy or erythema. Moist mucous membranes. NECK: Normal range of motion, supple without lymphadenopathy LUNGS: mildly diminished at base b/l. No wheezes rales or rhonchi. HEART: Regular rate and rhythm without murmurs, rubs, gallops. ABDOMEN: Soft, nontender, nondistended abdomen. No guarding, no rebound. Normal bowel sounds present. No CVA tenderness bilaterally. Musculoskeletal: FROM to passive/active. Strength 5+/5. Marco neg. No asymmetry to LE's. Extremities: No cyanosis, clubbing, or edema b/l. Peripheral pulses 2+. Capillary refill less than 3 seconds. NEUROLOGICAL: Normal speech, normal gait. NIH 0, cranial nerves grossly intact (with respect to chronic LLE dec sensation from radiculopathy). PSYCH: Normal mood, normal affect. SKIN: Warm, Dry, normal turgor, no rashes or lesions noted. Course - Re-evaluation Re-evalutation: 04/20/19 18:26 Patient is an afebrile, well-hydrated 39-year-old male who presents to the ED with generalized weakness (suspect mild dehydration), chest pain, unspecified. Vitals are acceptable without any significant tachycardia, tachypnea, or hypoxia. PE is otherwise unremarkable. Patient is nontoxic-appearing and is tolerating p.o. without any difficulties. Pt is currently asymptomatic. CBC, CMP, EKG/cardiac enzymes 2, chest x-ray, CTA chest are all unremarkable for any acute pathology. Patient has a heart score of <=3, Wells score of 0. Patient does not have any chest pain, dyspnea, or shortness of breath. Patient's presentation and symptomatology creates low suspicion for ACS, PE, pneumothorax, pericarditis, dissection, respiratory compromise, severe dehydration, sepsis, meningitis, or other systemic emergent condition at this time. Patient is aware that his condition can change from initial presentation and he needs to monitor symptoms closely and seek medical attention for any acute changes. Pt is feeling better and would like to go home. Recommend conservative measures for symptoms. Recheck with your PCM in 2-3 days. Consider consult with Cardiology. Return to the ED with any worsening/concerning symptoms otherwise as reviewed in discharge. Patient is in agreement. - Vital Signs Vital signs: Temp Pulse Resp BP Pulse Ox 98.0 F 86 21 H 134/76 H 99 04/20/19 14:18 04/20/19 14:18 04/20/19 17:17 04/20/19 17:17 04/20/19 17:17 - Laboratory Result Diagrams: 04/20/19 15:11 04/20/19 15:11 Laboratory results interpreted by me: 04/20/19 04/20/19 04/20/19 15:11 15:11 15:11 Hgb 12.5 L Hct 37.7 L RDW 14.2 H D-Dimer 0.86 H Carbon Dioxide 32 H Creatine Kinase 368 H Urine Urobilinogen Urine Ascorbic Acid 04/20/19 15:18 Hgb Hct RDW D-Dimer Carbon Dioxide Creatine Kinase Urine Urobilinogen 4.0 H Urine Ascorbic Acid 40 H Discharge - Discharge Clinical Impression: General weakness, Atypical chest pain Condition: Stable Disposition: HOME, SELF-CARE Additional Instructions: Maintain adequate fluid and food intake Take home medications as directed Healthy diet Monitor blood pressure daily and keep a log Monitor symptoms for any acute changes Recheck with your PCM in 2-3 days Consider a follow-up with cardiology Return to the ED with any worsening symptoms and/or development of fever, headache, chest pain, palpitations, syncope, shortness of breath, trouble breathing, abdominal pain, n/v/d, blood in stool/urine, loss of control of bowel/bladder, urinary retention, muscle weakness/paralysis, numbness/tingling, or other worsening symptoms that are concerning to you. Forms: Elevated Blood Pressure, Smoking Cessation Education Referrals: MARINA MÉNDEZ MD [ACTIVE STAFF] - Follow up as needed [facility] [Primary [facility] Provider] - 04/23/19
--- NOTE | 2019-04-20 15:19 | RADIOLOGY REPORT (SQ) ---
EXAM DESCRIPTION: CHEST 2 VIEWS COMPLETED DATE/TIME: 04/20/2019 2:57 pm REASON FOR STUDY: Chest tightness and weakness COMPARISON: None. NUMBER OF VIEWS: Two view. TECHNIQUE: Frontal and lateral radiographic views of the chest acquired. LIMITATIONS: None. FINDINGS: LUNGS AND PLEURA: No opacities, masses or pneumothorax. No pleural effusion. Attenuated bl ood vessels and flattened lobo-diaphragms. MEDIASTINUM AND HILAR STRUCTURES: No masses. No contour abnormalities. HEART AND VASCULAR STRUCTURES: Heart normal in size and contour. No evidence for failure. BONES: No acute findings. HARDWARE: None in the chest. OTHER: No other significant finding. IMPRESSION: COPD. NO ACUTE RADIOGRAPHIC FINDING IN THE CHEST. TECHNICAL DOCUMENTATION: JOB ID: [id number] 2010 [employer]- All Rights Reserved Reading location - IP/workstation name: [email or web address]
[2019-04-20 15:37] LABS: ABSOLUTE EOSINOPHILS # (AUTO) 0.1 10^3/uL (0.0-0.6); ABSOLUTE LYMPHOCYTES (AUTO) 2.2 10^3/uL (0.5-4.7); ABSOLUTE MONOCYTES (AUTO) 0.7 10^3/uL (0.1-1.4); ABSOLUTE NEUT (AUTO) 3.4 10^3/uL (1.7-8.2); HEMOGLOBIN 12.5 g/dL (13.5-17.0); LYMPHOCYTES % (AUTO) 34.2 % (13-45); TOTAL CELLS COUNTED % (AUTO) 100 %
[2019-04-20 15:43] LABS: BASOPHILS % (AUTO) 0.5 % (0-2); EOSINOPHILS % (AUTO) 1.5 % (0-6); HEMATOCRIT 37.7 % (37.9-51.0); MEAN CORPUSCULAR HEMOGLOBIN 27.3 pg (27.0-33.4); MEAN CORPUSCULAR HGB CONC 33.1 g/dL (32.0-36.0); MEAN CORPUSCULAR VOLUME 83 fl (80-97); MONOCYTES % (AUTO) 10.5 % (3-13); PLATELET COUNT 250 10^3/uL (150-450); RED BLOOD COUNT 4.57 10^6/uL (4.35-5.55); RED CELL DISTRIBUTION WIDTH 14.2 % (11.5-14.0); SEGMENTED NEUTROPHILS % (AUTO) 53.3 % (42-78); WHITE BLOOD COUNT 6.4 10^3/uL (4.0-10.5)
[2019-04-20 15:54] LABS: ALBUMIN 4.2 g/dL (3.5-5.0); ALKALINE PHOSPHATASE 81 U/L (38-126); ANION GAP 9 (5-19); ASPARTATE AMINO TRANSFERASE 33 U/L (17-59); BILIRUBIN,DIRECT 0.3 mg/dL (0.0-0.4); BILIRUBIN,TOTAL 0.6 mg/dL (0.2-1.3); BLOOD UREA NITROGEN 19 mg/dL (7-20); CALCIUM 9.8 mg/dL (8.4-10.2); CARBON DIOXIDE 32 mmol/L (22-30); CHLORIDE 99 mmol/L (98-107); CREATINE KINASE 368 U/L (55-170); GLUCOSE 84 mg/dL (75-110); POTASSIUM 4.6 mmol/L (3.6-5.0); TOTAL PROTEIN 7.8 g/dL (6.3-8.2)
[2019-04-20 15:57] LABS: APPEARANCE,URINE CLEAR; BILIRUBIN,URINE NEGATIVE (NEGATIVE); COLOR,URINE YELLOW; GLUCOSE, URINE NEGATIVE (NEGATIVE); KETONES,URINE NEGATIVE (NEGATIVE); PROTEIN,URINE NEGATIVE (NEGATIVE); URINE SPECIFIC GRAVITY 1.025
[2019-04-20 16:05] LABS: NT PRO BNP 14 pg/mL (<125); TROPONIN I < 0.012 ng/mL
--- NOTE | 2019-04-20 16:16 | EKG REPORT ---
SEVERITY:- NORMAL ECG - SINUS RHYTHM : Confirmed by: Luis Willson MD 20-Apr-2019 16:14:44
--- NOTE | 2019-04-20 17:01 | RADIOLOGY REPORT (SQ) ---
EXAM DESCRIPTION: CTA CHEST COMPLETED DATE/TIME: 04/20/2019 3:39 pm REASON FOR STUDY: elevated d-dimer COMPARISON: None. TECHNIQUE: CT scan of the chest performed using helical scanning technique with dynamic intravenous contrast injection. Images reviewed with lung, soft tissue and bone windows. Reconstructed coronal and sagittal MPR images reviewed. Additional 3 dimensional post-processing performed to develop Maximal Intensity Projection images (LA P). All images stored on PACS. All CT scanners at this facility use dose modulation, iterative reconstruction, and/or weight based d osing when appropriate to reduce radiation dose to as low as reasonably achievable (ALARA). [facility]: Dose Right [facility]: CareDose [facility]: Dose Right [facility]: Teradose 4D [facility]: [employer] CONTRAST TYPE AND DOSE: contrast/concentration: Isovue 350.00 mg/ml; Total Contrast Delivered: 50.0 ml; Total Saline Delivered: 70.0 ml Contrast bolus optimized for the pulmonary arteries. Not diagnostic for the aorta. RENAL FUNCTION: GFR > 60. RADIATION DOSE: CT Rad equipment meets quality standard of care and radiation dose reduction techniq ues were employed. CTDIvol: 3.3 - 14.3 mGy. DLP: 562 mGy-cm. . LIMITATIONS: None. FINDINGS: LUNGS AND PLEURA: The trachea has normal caliber and appearance. No bronchial wall thicke love or bronchiectasis. Background moderate pulmonary emphysema. No focal consolidation. No pleura l effusion or pneumothorax. No suspicious bone lesions. AORTA AND GREAT VESSELS: No aneurysm. Contrast bolus not optimized for the aorta. HEART: No pericardial effusion. No significant coronary artery calcifications. PULMONARY ARTERIES: No emboli visualized in the main pulmonary arteries or the segmental branches. HILAR AND MEDIASTINAL STRUCTURES: No identified masses or abnormal nodes. HARDWARE: None in the chest. UPPER ABDOMEN: No significant findings. Limited exam. THYROID AND OTHER SOFT TISSUES: No masses. No adenopathy. BONES: Spondylosis and degenerative disc disease in the thoracic and lumbar spine. No suspicious bon e lesions. 3D MIPS: Confirm above findings. OTHER: No other significant finding. IMPRESSION: 1. No pulmonary embolism. No acute pulmonary disease. 2. Moderate pulmonary emphysema. COMMENT: Quality ID # 436: Final reports with documentation of one or more dose reduction techniques (e.g., Automated exposure control, adjustment of the mA and/or kV according to patient size, use of iterative reconstruction technique) TECHNICAL DOCUMENTATION: JOB ID: [id number] 2010 [employer]- All Rights Reserved Reading location - IP/workstation name: [email or web address]
[2019-04-20] MEDS ORDERED: IPRATROPIUM/ALBUTEROL 0.5-2.5 MG/3 ML AMPUL NEB ONE (17:02)
[2019-04-20] MEDS ORDERED: ALBUTEROL SULFATE 0.083% NEB 2.5 MG/3 ML AMPUL NEB ONE (17:02)
[2019-04-20] MEDS: NORMAL SALINE 1000 ML 1,000 ML IV PRN ×2 (17:05→17:06)
[2019-04-20 17:23] VITALS: BP 134/76
== END 2019-04-20 18:44 | disposition home or self-care (01) ==
LOC: ER 14:12
DX: R07.89 Other chest pain (principal); R53.1 Weakness; F17.210 Nicotine dependence, cigarettes, uncomplicated; I10 Essential (primary) hypertension
CPT/HCPCS: 93005; 94640; 99285; 96360; 96361; 36415; 87086; 82962; 82550; 83735; 85025; 87088; 80053; 81001; 84484; 87186; 85379; 83880; 71046; 71275; 93010; J7030; J7620

== ENCOUNTER 2019-06-11 13:05 | Inpatient (IN) | payer OTHER, MEDICARE, BC ==
--- NOTE | 2019-06-11 13:40 | RADIOLOGY REPORT (SQ) ---
EXAM DESCRIPTION: CT HEAD WITHOUT IMAGES COMPLETED DATE/TIME: 06/11/2019 1:27 pm REASON FOR STUDY: AMS COMPARISON: None. TECHNIQUE: Axial images acquired through the brain without intravenous contrast. Images reviewed wi th bone, brain and subdural windows. Additional sagittal and coronal reconstructions were generated. Images stored on PACS. All CT scanners at this facility use dose modulation, iterative reconstruction, and/or weight based d osing when appropriate to reduce radiation dose to as low as reasonably achievable (ALARA). [facility]: Dose Right [facility]: CareDose [facility]: Dose Right [facility]: Teradose 4D [facility]: TotSpot RADIATION DOSE: mGy. LIMITATIONS: None. FINDINGS: VENTRICLES: Normal size and contour. CEREBRUM: No masses. No hemorrhage. No midline shift. No evidence for acute infarction. Normal gra y/white matter differentiation. No areas of low density in the white matter. CEREBELLUM: No masses. No hemorrhage. No alteration of density. No evidence for acute infarction. EXTRAAXIAL SPACES: No fluid collections. No masses. ORBITS AND GLOBE: No intra- or extraconal masses. Normal contour of globe without masses. CALVARIUM: No fracture. PARANASAL SINUSES: No fluid or mucosal thickening. SOFT TISSUES: No mass or hematoma. OTHER: No other significant finding. IMPRESSION: NORMAL BRAIN CT WITHOUT CONTRAST. EVIDENCE OF ACUTE STROKE: NO. COMMENT: Quality ID # 436: Final reports with documentation of one or more dose reduction techniques (e.g., Automated exposure control, adjustment of the mA and/or kV according to patient size, use of iterative reconstruction technique) TECHNICAL DOCUMENTATION: JOB ID: [id number] 2010 [employer]- All Rights Reserved Reading location - IP/workstation name: [email or web address]
[2019-06-11 13:51] LABS: INTERNATIONAL RATION (INR) 1.02; PARTIAL THROMBOPLASTIN TIME 25.1 SEC (23.5-35.8); PROTHROMBIN TIME 13.4 SEC (11.4-15.4)
[2019-06-11 13:58] LABS: ABSOLUTE LYMPHOCYTES (AUTO) 0.9 10^3/uL (0.5-4.7); ABSOLUTE MONOCYTES (AUTO) 0.6 10^3/uL (0.1-1.4); ABSOLUTE NEUT (AUTO) 12.2 10^3/uL (1.7-8.2); BASOPHILS % (AUTO) 0.2 % (0-2); EOSINOPHILS % (AUTO) 0.2 % (0-6); HEMATOCRIT 39.5 % (37.9-51.0); HEMOGLOBIN 12.6 g/dL (13.5-17.0); LYMPHOCYTES % (AUTO) 6.7 % (13-45); MEAN CORPUSCULAR HEMOGLOBIN 26.7 pg (27.0-33.4); MEAN CORPUSCULAR HGB CONC 31.9 g/dL (32.0-36.0); MEAN CORPUSCULAR VOLUME 84 fl (80-97); MONOCYTES % (AUTO) 4.6 % (3-13); RED BLOOD COUNT 4.72 10^6/uL (4.35-5.55); RED CELL DISTRIBUTION WIDTH 14.6 % (11.5-14.0); SEGMENTED NEUTROPHILS % (AUTO) 88.3 % (42-78); TOTAL CELLS COUNTED % (AUTO) 100 %; WHITE BLOOD COUNT 13.8 10^3/uL (4.0-10.5)
--- NOTE | 2019-06-11 13:58 | RADIOLOGY REPORT (SQ) ---
EXAM DESCRIPTION: CHEST SINGLE VIEW IMAGES COMPLETED DATE/TIME: 06/11/2019 12:28 pm REASON FOR STUDY: AMS COMPARISON: 10/02/2016 EXAM PARAMETERS: NUMBER OF VIEWS: One view. TECHNIQUE: Single frontal radiographic view of the chest acquired. RADIATION DOSE: NA LIMITATIONS: None. FINDINGS: LUNGS AND PLEURA: The lungs are hyperinflated. No focal consolidation or pleural effusion . No pneumothorax. MEDIASTINUM AND HILAR STRUCTURES: No masses. Contour normal. HEART AND VASCULAR STRUCTURES: Heart normal in size. Normal vasculature. BONES: No acute findings. HARDWARE: None in the chest. OTHER: No other significant finding. IMPRESSION: No acute cardiopulmonary disease. Hyperinflated lungs which can be seen with obstructiv e lung disease. TECHNICAL DOCUMENTATION: JOB ID: [id number] 2010 [employer]- All Rights Reserved Reading location - IP/workstation name: [email or web address]
[2019-06-11 14:06] LABS: ALBUMIN 4.2 g/dL (3.5-5.0); ALKALINE PHOSPHATASE 65 U/L (38-126); ASPARTATE AMINO TRANSFERASE 42 U/L (17-59); BLOOD UREA NITROGEN 32 mg/dL (7-20); CALCIUM 9.7 mg/dL (8.4-10.2); CHLORIDE 92 mmol/L (98-107); CREATINE KINASE 177 U/L (55-170); GLUCOSE 122 mg/dL (75-110); POTASSIUM 4.7 mmol/L (3.6-5.0); TOTAL PROTEIN 7.1 g/dL (6.3-8.2)
[2019-06-11 14:13] LABS: ANION GAP 6 (5-19); CARBON DIOXIDE 39 mmol/L (22-30)
[2019-06-11 14:18] LABS: CREATINE KINASE MB 7.25 ng/mL (<4.55); PLATELET COUNT 153 10^3/uL (150-450)
[2019-06-11 14:20] LABS: TROPONIN I < 0.012 ng/mL
--- NOTE | 2019-06-11 14:23 | ER Document Report ---
ED General - General Chief Complaint: Breathing Difficulty Stated Complaint: DIFFICULTY BREATHING Primary Care Provider: [facility] [[facility]] - Follow up as needed Mode of Arrival: Medic Information source: Emergency Med Personnel Cannot obtain history due to: Altered mental status Notes: Patient is a 64-year-old male brought into the emergency department by EMS. Family states that the patient is newly diagnosed COPD patient. At time of presentation to the emergency department however patient is completely unresponsive has a left-sided gaze. There is EMS personnel state that this began just as they pulled into the ambulance bay. There is no history of trauma. Remainder of history of present illness is unobtainable secondary to patient's condition. TRAVEL OUTSIDE OF THE [place] IN LAST 30 DAYS: No - HPI Onset: Just prior to arrival Onset/Duration: Sudden Quality of pain: No pain Severity: Severe Associated symptoms: Nonproductive cough, Shortness of breath Exacerbated by: Denies Relieved by: Denies Similar symptoms previously: Yes Recently seen / treated by doctor: Yes - Related Data Allergies/Adverse Reactions: No Known Allergies Allergy (Verified 05/19/19 13:23) Past Medical History - General Information source: Relative, Emergency Med Personnel Cannot obtain history due to: Altered mental status - Social History Smoking Status: Unknown if Ever Smoked Frequency of alcohol use: uto Occupation: uto Lives with: Family Family History: Reviewed & Not Pertinent Patient has suicidal ideation: No Patient has homicidal ideation: No - Past Medical History Cardiac Medical History: Reports: Hx Hypertension - norvasc prescribed, pt states doesn't take Pulmonary Medical History: Reports: Hx COPD, Hx Pneumonia Musculoskeletal Medical History: Reports Hx Arthritis - knees, Reports Hx Musculoskeletal Deformity Past Surgical History: Reports: Hx Orthopedic Surgery - Lateral knee replacement - Immunizations Immunizations up to date: Yes Hx Diphtheria, Pertussis, Tetanus Vaccination: No Review of Systems - Review of Systems Notes: The minimal review of systems was obtained by EMS state that the patient does have a recent diagnosis of COPD but otherwise has been at baseline. No major complaints. -: Yes ROS unobtainable due to patient's medical condition Physical Exam - Notes Notes: PHYSICAL EXAMINATION: GENERAL: Patient is a cachectic 64-year-old -[place] male showing no response to noxious stimuli HEAD: Atraumatic, normocephalic. EYES: Conjunctiva are injected bilaterally patient has a left-sided gaze ENT: nares patent, oropharynx clear without exudates. Dry mucous membranes. NECK: Normal range of motion, supple without lymphadenopathy, no appreciable JVD LUNGS: Lungs clear to auscultation bilaterally and equal, poor excursion patient is breathing very slowly but is maintaining oxygen saturation on room air. No wheezes rales or rhonchi. HEART: Regular rate and rhythm without murmurs ABDOMEN: Soft, scaphoid nontender, normal bowel sounds. No guarding, no reboun d. No masses appreciated. EXTREMITIES: Patient is flaccid x4, no pitting or edema. No cyanosis. 2+ pulses x4 NEUROLOGICAL: Patient is unresponsive to noxious stimuli minimal gag reflex [place] Coma Scale of 3 SKIN: Warm, Dry, and intact. Normal turgor, no rashes or lesions noted. Course - Re-evaluation Re-evalutation: 06/11/19 16:45 Patient's been maintained in the emergency department on a desk monitor. Patient did receive 2 L of IV normal saline. Because of patient's core temperature being subnormal fluids were heated, patient was given warmed blankets which did seem to normalize the patient's temperature. Patient has remained at baseline without decompensation. Patients labs have been reviewed without significant finding CT of brain demonstrates no sign of acute intracranial pathology. Portable chest x-ray read by radiology as negative EKG is are likewise nondiagnostic. 06/11/19 16:46 At approximately 1500 I was notified by nursing staff that the patient's heart rate had decelerated into the 30s. Presented to the bedside patient did indeed have a wandering heart rate between 30 and 60 but not commensurate with atrial fibrillation. Patient's pulse oximetry was not registering and patient's blood pressure although it had been low earlier began to diminish significantly. Repeat EKG and repeat chest x-ray were ordered and obtained both nondiagnostic. Arterial blood gas was initiated. Patient was started on Levophed for blood pressure support which did somewhat normalize patient's blood pressure. Patient was given 0.5 mg of atropine IV and this subsequently brought the patient's heart rate into the 90s. Patient is continued to have a [place] Coma Scale of 3 while in the emergency de partment however up until this point patient had been saturating normally please see nurses notes for vital signs. Consultation was made with the chief compressor station engineer who requested to hold off on intubation until he had the chance to evaluate the patient. - Laboratory Result Diagrams: 06/11/19 13:35 06/11/19 13:35 Laboratory results interpreted by me: 06/11/19 06/11/19 06/11/19 13:35 13:35 13:35 WBC 13.8 H Hgb 12.6 L MCH 26.7 L MCHC 31.9 L RDW 14.6 H Lymph % (Auto) 6.7 L Absolute Neuts (auto) 12.2 H Seg Neutrophils % 88.3 H ABG pH ABG pO2 Chloride 92 L Carbon Dioxide 39 H BUN 32 H Glucose 122 H Ammonia Creatine Kinase 177 H CK-MB (CK-2) 7.25 H Urine Protein Urine Ketones Urine Ascorbic Acid 06/11/19 06/11/19 06/11/19 14:19 15:30 16:08 WBC Hgb MCH MCHC RDW Lymph % (Auto) Absolute Neuts (auto) Seg Neutrophils % ABG pH 6.77 L* ABG pO2 64.9 L Chloride Carbon Dioxide BUN Glucose Ammonia 59.5 H Creatine Kinase CK-MB (CK-2) Urine Protein 100 H Urine Ketones TRACE H Urine Ascorbic Acid 40 H - Diagnostic Test Radiology reviewed: Reports reviewed - EKG Interpretation by Me EKG shows normal: Sinus rhythm Rate: Normal Rhythm: NSR When compared to previous EKG there are: No significant change Additional EKG results interpreted by me: 06/11/19 16:43 Repeat EKG was obtained showing a sinus rhythm rate of 58 bpm otherwise no morphology changes Critical Care Note - Critical Care Note Total time excluding time spent on procedures (mins): 70 Comments: Please allow 70 minutes of critical care time spent obtaining history from patient or surrogate, discussions with consultants, development of treatment plan with patient or surrogate, evaluation of patient's response to treatment, examination of patient. This also includes ordering and reviewing laboratory, EKG and / or radiologic studies, performing and reassessing treatments and interventions as well as reviewing previous visits and old charts. This is exclusive of separately billable procedures. Discharge - Discharge Clinical Impression: COPD exacerbation Altered mental status Qualifiers: Altered mental status type: somnolence Qualified Code(s): R40.0 - Somnolence Failure to thrive Qualifiers: Failure to thrive age range: in adult Qualified Code(s): R62.7 - Adult failure to thrive Condition: Serious Disposition: ADMITTED INPATIENT Admitting Provider: Aurelia (Director Card) Unit Admitted: ICU Referrals: [facility] [[facility]] - Follow up as needed
[2019-06-11 14:45] LABS: ALCOHOL < 10 mg/dL (NONE DETECTED)
[2019-06-11 14:49] LABS: APPEARANCE,URINE CLOUDY; BILIRUBIN,URINE NEGATIVE (NEGATIVE); COLOR,URINE YELLOW; GLUCOSE, URINE NEGATIVE (NEGATIVE); KETONES,URINE TRACE mg/dL (NEGATIVE); LEUKOCYTE ESTERASE,URINE NEGATIVE (NEGATIVE); NITRITE,URINE NEGATIVE (NEGATIVE); PROTEIN,URINE 100 mg/dL (NEGATIVE); URINE SPECIFIC GRAVITY 1.027; UROBILINOGEN,URINE NEGATIVE mg/dL (<2.0)
[2019-06-11 14:56] LABS: A TYPE INFLUENZA AG NEGATIVE (NEGATIVE); B INFLUENZA AG NEGATIVE (NEGATIVE)
[2019-06-11] MEDS ORDERED: NOREPINEPHRINE BITARTRATE INJ/PF 4 MG/4 ML SDV IV ONE ×2 (15:17→19:19)
[2019-06-11 15:18] LABS: URINE AMPHETAMINES SCREEN NEGATIVE; URINE BARBITURATES SCREEN NEGATIVE; URINE BENZODIAZEPINES SCREEN NEGATIVE; URINE COCAINE SCREEN NEGATIVE; URINE MARIJUANA (THC) SCREEN NEGATIVE; URINE METHADONE SCREEN NEGATIVE; URINE PHENCYCLIDINE SCREEN NEGATIVE
--- NOTE | 2019-06-11 15:43 | RADIOLOGY REPORT (SQ) ---
EXAM DESCRIPTION: CHEST SINGLE VIEW IMAGES COMPLETED DATE/TIME: 06/11/2019 3:31 pm REASON FOR STUDY: no resp COMPARISON: Earlier the same day. NUMBER OF VIEWS: One view. TECHNIQUE: Single frontal radiographic view of the chest acquired. LIMITATIONS: None. FINDINGS: LUNGS AND PLEURA: No opacities, masses or pneumothorax. No pleural effusion. Attenuated bl ood vessels and flattened lobo-diaphragms. MEDIASTINUM AND HILAR STRUCTURES: No masses. Contour normal. HEART AND VASCULAR STRUCTURES: Heart normal in size. Normal vasculature. BONES: No acute findings. HARDWARE: None in the chest. OTHER: No other significant finding. IMPRESSION: COPD. NO ACUTE RADIOGRAPHIC FINDING IN THE CHEST. TECHNICAL DOCUMENTATION: JOB ID: [id number] 2010 [employer]- All Rights Reserved Reading location - IP/workstation name: [email or web address]
[2019-06-11] MEDS: NORMAL SALINE 1000 ML 1,000 ML IV PRN ×2 (15:45→16:15)
[2019-06-11 15:53] LABS: ARTERIAL BLOOD PO2 64.9 mmHg (80-100)
[2019-06-11 16:06] LABS: ARTERIAL BLOOD PH 6.77 (7.35-7.45)
[2019-06-11 16:08] LABS: ARTERIAL BLOOD FIO2 80%
[2019-06-11] MEDS ORDERED: PHENYLEPHRINE HCL INJ/PF 10 MG/1 ML SDV ONE ×2 (16:21→18:37)
[2019-06-11] MEDS ORDERED: MIDAZOLAM 2 MG/2 ML INJ ONE ×2 (16:27→17:45)
--- NOTE | 2019-06-11 17:37 | RADIOLOGY REPORT (SQ) ---
EXAM DESCRIPTION: CHEST SINGLE VIEW IMAGES COMPLETED DATE/TIME: 06/11/2019 5:09 pm REASON FOR STUDY: intubation COMPARISON: 06/11/2019 EXAM PARAMETERS: NUMBER OF VIEWS: One view. TECHNIQUE: Single frontal radiographic view of the chest acquired. RADIATION DOSE: NA LIMITATIONS: None. FINDINGS: LUNGS AND PLEURA: Findings of COPD. Since the previous examination, mild right lower shanice g opacity, may be on the basis of aspiration pneumonia. A small air-fluid level is suggested within the center of the opacity. The costophrenic angles have been cut off of the obtained image. No evid ence of pneumothorax. MEDIASTINUM AND HILAR STRUCTURES: No masses. Contour normal. HEART AND VASCULAR STRUCTURES: Heart normal in size. Normal vasculature. BONES: No acute findings. HARDWARE: Interval placement of Right IJ central line with the tip in the region of the superior sia a cava. Endotracheal tube has been placed in the interval, the tip lies approximately 5.4 cm superio r to the cathryn. OTHER: No other significant finding. IMPRESSION: 1. Interval placement of endotracheal tube and Right IJ central line. No evidence of p neumothorax. 2. Interval development of right lower lung parenchymal opacity, may be on the basis of aspiration p neumonia. A small air-fluid level is suggested within the center of the opacity. Correlation sugges padmini. 3. Findings of COPD. COMMENT: 1. The results of this examination were discussed with emergency department provider on at 17:27 hours. TECHNICAL DOCUMENTATION: JOB ID: [id number] 2010 [employer]- All Rights Reserved Reading location - IP/workstation name: [email or web address]
[2019-06-11] MEDS: DEXTROSE 5%-WATER 250 ML with PHENYLEPHRINE HCL 40 MG IV PRN ×2 (19:00)
[2019-06-11] MEDS: DEXTROSE 5%-WATER 250 ML with NOREPINEPHRINE BITARTRATE 4 MG IV PRN ×4 (19:00→23:11)
[2019-06-11] MEDS ORDERED: DEXTROSE 5%-WATER 250 ML with NOREPINEPHRINE BITARTRATE 4 MG IV PRN ×2 (19:14)
[2019-06-11] MEDS ORDERED: ATROPINE SULFATE INJ 1 MG/1 ML VIAL IV ONE (19:14)
[2019-06-11] MEDS ORDERED: RINGERS SOLUTION,LACTATED 1,000 ML IV ONE (19:15)
[2019-06-11] MEDS ORDERED: ATROPINE SULFATE INJ 1 MG/10 ML DISP.SYRIN IV ONE (19:19)
[2019-06-11 19:23] LABS: ARTERIAL BLOOD BASE EXCESS -0.1 mmol/L; ARTERIAL BLOOD H2CO3 2.29 mmol/L (1.05-1.35); ARTERIAL BLOOD HCO3 29.4 mmol/L (20-24); ARTERIAL BLOOD O2 SATURATION 99.4 % (94-98); ARTERIAL BLOOD TOTAL CO2 31.7 mmol/L (23-27)
[2019-06-11 19:24] LABS: ARTERIAL BLOOD FIO2 100%
[2019-06-11 19:26] LABS: ARTERIAL BLOOD PCO2 76.2 mmHg (35-45)
[2019-06-11] MEDS ORDERED: DEXTROSE 50%-WATER 25 GM/50 ML DISP.SYRIN IV PRN ×2 (20:32)
[2019-06-11] MEDS ORDERED: ACETAMINOPHEN 325 MG TABLET PO PRN (20:32)
[2019-06-11] MEDS ORDERED: RINGERS SOLUTION,LACTATED 1,000 ML IV PRN (20:32)
[2019-06-11] MEDS ORDERED: DEXTROSE 40% GEL 15 GM TUBE PO PRN ×2 (20:32)
[2019-06-11] MEDS ORDERED: GLUCAGON,HUMAN RECOMB 1 MG INJ SUBCUT PRN (20:32)
--- NOTE | 2019-06-11 20:32 | CRITICAL CARE ADMISSION REPORT ---
[facility] Date:: 06/11/19 Time:: 19:00 Reason for ICU Reason:: Patient admitted to ICU for acute respiratory failure secondary to COPD exacerbation, pneumonia, altered mental status. HPI: 64-year-old gentleman with COPD. Patient presented to the emergency department via EMS completely unresponsive with a left-sided gaze. Emergency room obtained a head CT which was negative for any pathology. Patient was short of breath and became very unresponsive with a GCS of 3. His blood pressure was decreased and he received 2 L of normal saline as well as a Levophed drip. He also became acutely bradycardic and was given atropine. Critical care was then called to help evaluate. Upon arrival to the emergency room, patient had agonal breathing and remained unresponsive. He was immediately intubated, central access was obtained to give high-volume fluids and higher levels of vasoactive medications. Patient was immediately taken then to the ICU where an arterial line was placed for close monitoring and blood draws. History obtained from:: Documentation, verbal report from emergency department. - Diagnosis/Plan (1) Altered mental status Qualifiers: Altered mental status type: stupor Qualified Code(s): R40.1 - Stupor Is this a current diagnosis for this admission?: Yes Plan: Patients initial pH was 6.77 prior to being intubated. CO2 was unable to be recorded due to its level. Mental status improved following intubation and ventilation. Given 2 mg of Versed x2 for central line procedure and then a line procedure. (2) COPD exacerbation Is this a current diagnosis for this admission?: Yes Plan: Patient is a newly diagnosed COPD patient, however he most likely has a long history of the disease. He is cachectic, and has severely hyperinflated lungs on chest x-ray. He does not have significant wheezing on exam and seems to have good lung compliance when ventilated. There is evidence of bilateral lower lobe pneumonia on chest x-ray. We will start Solu-Medrol, duo nebs and empiric antibiotics. Obtain sputum culture if possible. Continue mechanical ventilation. Adjust rate further according to pH. Patient's pH improved after intubation. His vent settings are as follows: PRVC, Vt: 450, RR: 18, PEEP 5, FiO2 100%. His ABG with a pH of 7.20 reflects a respiratory rate of 15. Initial pH prior to intubation was 6.77 - . Plan Summary: Neuro: CT scan in ED was normal. Continues to have some muscle twitches and rigidity. Pain management/sedation: Continue only as needed medications for now. If patient becomes uncomfortable on the ventilator, we can certainly start a Versed drip. Pulmonary: Continue mechanical ventilation. We could increase patient's tidal volume to 500 and increase his respiratory rate as needed to target his desired pH. Cardiovascular: Patient was severely hypotensive in the emergency department. He was started on Levophed but required Michael-Synephrine for blood pressure support. Continue with high-volume fluid resuscitation. Patient's right IJ seemed to collapse very easily during placement of TLC, implying a severely hypovolemic circulatory system. Indwelling catheters: Right IJ placed in the emergency department. Left axillary A-line placed in ICU. Heme: No signs of bleeding. Follow-up CBC. DVT prophylaxis: Patient will require at least mechanical DVT prophylaxis. Chemical prophylaxis to be determined with lab results. Renal: Elevated BUN with normal creatinine. This is consistent with hypovolemia. Continue fluid resuscitation. Gastrointestinal: Abdomen is soft, nondistended. No apparent pathology. N.p.o. for now. We will consider starting tube feeds tomorrow if patient stable. GI prophylaxis: We will start Pepcid for GI prophylaxis. : Gardner catheter with temperature probe placed in ED. ID: Elevated WBC, bilateral infiltrates noted on CXR. Obtain blood and sputum cultures. Empiric coverage for pneumonia. Past Medical History Cardiac Medical History: Reports: Hypertension - norvasc prescribed, pt states doesn't take Pulmonary Medical History: Reports: Chronic Obstructive Pulmonary Disease (COPD), Pneumonia Musculoskeltal Medical History: Reports: Arthritis - knees Psychiatric Medical History: Denies: Depression Hematology: Reports: Anemia Denies: Sickle Cell Disease Past Surgical History Past Surgical History: Reports: Orthopedic Surgery - Lateral knee replacement Social/Family History - Social History Lives with: Family Smoking Status: Unknown if Ever Smoked Frequency of Alcohol Use: Occasional Hx Recreational Drug Use: No Hx Prescription Drug Abuse: No - Medication/Allergies Home Medications: Ferrous Sulfate [Feosol 325 mg Tablet] 325 mg PO DAILY 03/14/18 Multivitamin [Tab-A-Faiban (Multiple Vitamin) Tablet] 1 tab PO DAILY 03/14/18 Albuterol Sulfate [Albuterol Sulfate Hfa] 1 puff IH Q4HP PRN 06/11/19 Albuterol Sulfate [Ventolin 0.083% Neb 2.5 mg/3 ml Ampul] 1 vial NEB Q6HP PRN 06/11/19 Fluticasone/Umeclidin/Vilanter [Trelegy 100-62.5-25 Mcg Ellipta 14 Dose/Dpi] 1 puff IH DAILY 06/11/19 Megestrol Acetate 40 mg PO BID 06/11/19 Allergies/Adverse Reactions: No Known Allergies Allergy (Verified 05/19/19 13:23) Review of Systems ROS unobtainable: Due to endotracheal tube, Due to mental status Physical Exam Vital Signs: Temp Pulse Resp BP Pulse Ox 94.6 F L 85 15 91/64 L 100 06/11/19 19:38 06/11/19 19:38 06/11/19 19:38 06/11/19 18:53 06/11/19 19:38 Intake & Output 06/10/19 06/11/19 06/12/19 06:59 06:59 06:59 Intake Total 1500 Output Total 45 Balance 1455 Weight 46.8 kg Weight/Height Weight 46.8 kg Height 6 ft 1 in General appearance: PRESENT: severe distress, thin. ABSENT: well-nourished Head exam: PRESENT: atraumatic Eye exam: ABSENT: periorbital swelling, scleral icterus Ear exam: PRESENT: TM's normal bilaterally Mouth exam: PRESENT: moist Neck exam: PRESENT: JVD Respiratory exam: PRESENT: accessory muscle use, retraction, symmetrical Pulses: PRESENT: normal carotid pulses GI/Abdominal exam: PRESENT: hypoactive bowel sounds, soft. ABSENT: ascites, mass Extremities exam: ABSENT: joint swelling, pedal edema Musculoskeletal exam: PRESENT: other - Cachectic, rigid limbs. Neurological exam: PRESENT: other - Obtunded Tubes/Lines: PRESENT: Endotracheal Tube, Central Line, Arterial Catheter Laboratory/Radiographs Laboratory Results: 06/11/19 13:35 06/11/19 13:35 06/11/19 06/11/19 06/11/19 13:35 13:35 13:35 WBC 13.8 H RBC 4.72 Hgb 12.6 L Hct 39.5 MCV 84 MCH 26.7 L MCHC 31.9 L RDW 14.6 H Plt Count 153 Seg Neutrophils % 88.3 H Carbonic Acid HCO3/H2CO3 Ratio ABG pH ABG pCO2 ABG pO2 ABG HCO3 ABG O2 Saturation ABG Base Excess FiO2 Sodium 137.4 Potassium 4.7 Chloride 92 L Carbon Dioxide 39 H Anion Gap 6 BUN 32 H Creatinine 0.61 Est GFR ( Amer) > 60 Glucose 122 H Lactic Acid Calcium 9.7 Total Bilirubin 1.0 AST 42 Alkaline Phosphatase 65 Ammonia Total Protein 7.1 Albumin 4.2 Lipase 49.0 Urine Color Urine Appearance Urine pH Ur Specific [place] Urine Protein Urine Glucose (UA) Urine Ketones Urine Blood Urine Nitrite Ur Leukocyte Esterase Urine WBC (Auto) Urine RBC (Auto) 06/11/19 06/11/19 06/11/19 14:16 14:19 15:30 WBC RBC Hgb Hct MCV MCH MCHC RDW Plt Count Seg Neutrophils % Carbonic Acid HCO3/H2CO3 Ratio ABG pH 6.77 L* ABG pCO2 ABG pO2 64.9 L ABG HCO3 ABG O2 Saturation ABG Base Excess FiO2 80% Sodium Potassium Chloride Carbon Dioxide Anion Gap BUN Creatinine Est GFR ( Amer) Glucose Lactic Acid 0.7 Calcium Total Bilirubin AST Alkaline Phosphatase Ammonia Total Protein Albumin Lipase Urine Color YELLOW Urine Appearance CLOUDY Urine pH 5.0 Ur Specific [place] 1.027 Urine Protein 100 H Urine Glucose (UA) NEGATIVE Urine Ketones TRACE H Urine Blood NEGATIVE Urine Nitrite NEGATIVE Ur Leukocyte Esterase NEGATIVE Urine WBC (Auto) 9 Urine RBC (Auto) 2 06/11/19 06/11/19 06/11/19 16:08 16:08 18:50 WBC RBC Hgb Hct MCV MCH MCHC RDW Plt Count Seg Neutrophils % Carbonic Acid Cancelled 2.29 H HCO3/H2CO3 Ratio Cancelled 12:1 ABG pH Cancelled 7.20 L* ABG pCO2 Cancelled 76.2 H* ABG pO2 Cancelled 256.0 H ABG HCO3 Cancelled 29.4 H ABG O2 Saturation Cancelled 99.4 H ABG Base Excess Cancelled -0.1 FiO2 Cancelled 100% Sodium Potassium Chloride Carbon Dioxide Anion Gap BUN Creatinine Est GFR ( Amer) Glucose Lactic Acid Calcium Total Bilirubin AST Alkaline Phosphatase Ammonia 59.5 H Total Protein Albumin Lipase Urine Color Urine Appearance Urine pH Ur Specific [place] Urine Protein Urine Glucose (UA) Urine Ketones Urine Blood Urine Nitrite Ur Leukocyte Esterase Urine WBC (Auto) Urine RBC (Auto) 06/11/19 06/11/19 13:35 13:35 Creatine Kinase 177 H CK-MB (CK-2) 7.25 H Troponin I < 0.012 Impressions: Chest X-Ray 06/11/19 13:13 IMPRESSION: No acute cardiopulmonary disease. Hyperinflated lungs which can be seen with obstructive lung disease. Head CT 06/11/19 13:13 IMPRESSION: NORMAL BRAIN CT WITHOUT CONTRAST. EVIDENCE OF ACUTE STROKE: NO. All labs, radiographs, diagnostic studies and EKGs were personally reviewed: Yes In addition, reports of radiographic and diagnostic studies were read: Yes Critical Time Critical Time (minutes): 120 -: The care of a critically ill patient is dynamic. This note represents a static moment in the admission process. Orders and treatments may be given simultaneously and urgently, and time is not telephone claims representative of the treatment process. This patient requires Critical Care secondary to life threatening organ or limb dysfunction. Without Critical Care services, the patient is at risk for increased mortality and morbidity.
[2019-06-11] MEDS ORDERED: MIDAZOLAM 2 MG/2 ML INJ IV ONE (20:42)
[2019-06-11] MEDS ORDERED: NORMAL SALINE INJ/PF 0.9% 10 ML SDV IV PRN (20:45)
[2019-06-11] MEDS ORDERED: RINGERS SOLUTION,LACTATED 500 ML IV ONE ×2 (20:47→22:36)
[2019-06-11] MEDS ORDERED: CEFTRIAXONE SODIUM 2,000 MG in DEXTROSE 5%-WATER 100 ML IV SCH (21:00)
[2019-06-11] MEDS ORDERED: PHARMACY COMMUNICATION ORDER MC NR (21:00)
[2019-06-11] MEDS ORDERED: ACETAMINOPHEN 325 MG TABLET NG PRN (21:03)
[2019-06-11] MEDS: LACTULOSE SYRUP 20 GM/30 ML UDCUP NG SCH (21:25)
[2019-06-11] MEDS: CEFTRIAXONE 2 GM/D5W RTU 2 GM/50 ML RTUPB IV SCH (21:26)
[2019-06-11] MEDS: METHYLPREDNISOLONE INJ 40 MG/1 ML SDV IV SCH (21:26)
[2019-06-11] MEDS: HEPARIN SOD (PORCINE) 5,000 UNIT/ML 1 ML VIAL SUBCUT SCH (21:27)
[2019-06-11] MEDS: FAMOTIDINE INJ/PF 20 MG/2 ML SDV IV SCH (21:29)
--- NOTE | 2019-06-11 22:04 | EKG REPORT ---
SEVERITY:- ABNORMAL ECG - SINUS RHYTHM RIGHT ATRIAL ABNORMALITY : Confirmed by: Sarahi Gong MD 11-Jun-2019 22:04:00
[2019-06-11] MEDS: RINGERS SOLUTION,LACTATED 1,000 ML IV PRN (22:12)
[2019-06-11 22:33] LABS: ARTERIAL BLOOD BASE EXCESS 1.9 mmol/L; ARTERIAL BLOOD H2CO3 1.21 mmol/L (1.05-1.35); ARTERIAL BLOOD HCO3 26.3 mmol/L (20-24); ARTERIAL BLOOD O2 SATURATION 85.8 % (94-98); ARTERIAL BLOOD PCO2 40.3 mmHg (35-45); ARTERIAL BLOOD PH 7.43 (7.35-7.45); ARTERIAL BLOOD PO2 48.9 mmHg (80-100); ARTERIAL BLOOD TOTAL CO2 27.6 mmol/L (23-27)
[2019-06-11 22:34] LABS: ARTERIAL BLOOD FIO2 45%
--- NOTE | 2019-06-12 00:09 | RADIOLOGY REPORT (SQ) ---
EXAM DESCRIPTION: XR CHEST 1 VIEW COMPLETED DATE/TME: 06/11/2019 00:00 CLINICAL HISTORY: 64 years, Male, OGT placement COMPARISON: 06/11/2019 chest x-ray at 5:10 PM NUMBER OF VIEWS: 2 TECHNIQUE: AP views of the chest LIMITATIONS: None. FINDINGS: Interval placement of an enteric tube. The tip is in the left upper quadrant, likely in the stomach. Endotracheal tube and central venous catheter remain in place. The heart size is normal. Airspace opacity of the right lung base. The lung apices were not entirely included on the exam. No definitive pneumothorax. Underlying hyperinflation. IMPRESSION: Tip of the enteric tube in the stomach. Other findings are grossly stable copyright 2011 [employer]- All Rights Reserved
[2019-06-12] MEDS: LACTULOSE SYRUP 20 GM/30 ML UDCUP NG SCH (00:53)
[2019-06-12] MEDS: DEXTROSE 5%-WATER 250 ML with PHENYLEPHRINE HCL 40 MG IV PRN ×2 (00:55)
[2019-06-12] MEDS ORDERED: HYDROCOD/ACETAMIN 7.5-325 MG/15 ML ORAL SOLN UDCUP NG PRN (01:43)
[2019-06-12] MEDS ORDERED: FENTANYL CITRATE INJ/PF 100 MCG/2 ML AMPUL IV ONE (01:44)
[2019-06-12] MEDS ORDERED: GABAPENTIN 300 MG CAPSULE NG ONE (02:00)
[2019-06-12] MEDS: RINGERS SOLUTION,LACTATED 1,000 ML IV PRN (03:22)
[2019-06-12] MEDS ORDERED: IPRATROPIUM/ALBUTEROL 0.5-2.5 MG/3 ML AMPUL NEB ONE ×3 (04:00→12:28)
[2019-06-12 04:16] LABS: HEMATOCRIT 29.7 % (37.9-51.0); MEAN CORPUSCULAR HEMOGLOBIN 26.8 pg (27.0-33.4); MEAN CORPUSCULAR HGB CONC 32.9 g/dL (32.0-36.0); MEAN CORPUSCULAR VOLUME 82 fl (80-97); PLATELET COUNT 120 10^3/uL (150-450); RED BLOOD COUNT 3.65 10^6/uL (4.35-5.55); RED CELL DISTRIBUTION WIDTH 14.4 % (11.5-14.0); WHITE BLOOD COUNT 6.9 10^3/uL (4.0-10.5)
[2019-06-12 04:18] LABS: HEMOGLOBIN 9.8 g/dL (13.5-17.0)
[2019-06-12 04:35] LABS: ALBUMIN 2.6 g/dL (3.5-5.0); ALKALINE PHOSPHATASE 46 U/L (38-126); ASPARTATE AMINO TRANSFERASE 39 U/L (17-59); BILIRUBIN,TOTAL 0.9 mg/dL (0.2-1.3); BLOOD UREA NITROGEN 29 mg/dL (7-20); CALCIUM 8.4 mg/dL (8.4-10.2); CHLORIDE 98 mmol/L (98-107); GLUCOSE 117 mg/dL (75-110); PHOSPHORUS 1.9 mg/dL (2.5-4.5); POTASSIUM 4.1 mmol/L (3.6-5.0); TOTAL PROTEIN 4.9 g/dL (6.3-8.2)
[2019-06-12 04:39] LABS: C-REACTIVE PROTEIN 37.8 mg/L (<10.0)
[2019-06-12 05:01] LABS: ANION GAP 6 (5-19)
[2019-06-12 05:16] LABS: CARBON DIOXIDE 28 mmol/L (22-30)
[2019-06-12] MEDS ORDERED: RINGERS SOLUTION,LACTATED 1,000 ML IV PRN (05:34)
[2019-06-12] MEDS ORDERED: PHOSPHORUS #1 250 MG TABLET NG ONE (05:42)
[2019-06-12] MEDS: HEPARIN SOD (PORCINE) 5,000 UNIT/ML 1 ML VIAL SUBCUT SCH ×3 (06:27→21:01)
[2019-06-12] MEDS: DEXTROSE 5%-WATER 250 ML with NOREPINEPHRINE BITARTRATE 4 MG IV PRN ×2 (06:44)
[2019-06-12] MEDS ORDERED: SODIUM PHOS,M-BASIC-D-BASIC 60 MMOL in NORMAL SALINE 500 ML IV ONE (07:00)
[2019-06-12] MEDS: GABAPENTIN 300 MG CAPSULE NG SCH ×2 (10:26→21:01)
[2019-06-12] MEDS: FAMOTIDINE INJ/PF 20 MG/2 ML SDV IV SCH ×2 (10:26→21:01)
[2019-06-12] MEDS: METHYLPREDNISOLONE INJ 40 MG/1 ML SDV IV SCH ×2 (10:26→21:01)
--- NOTE | 2019-06-12 13:01 | Operative Report ---
Bedside Procedure - History of Present Illness History of Present Illness: Procedure: Central line placement Indication: Vasoactive medications, IV fluids, blood draws. Procedure six pack loader operator: Aston Pickett Attending physician: Dr. Moses Consent: The procedure was performed emergently and the permission was implied because of the emergent nature. Procedure summary: The [facility] central line insertion practice form was completed by RN. A timeout was performed. My hands were washed immediately prior to the procedure. I wore surgical cap, mask with protective eyewear, full gown and sterile gloves throughout the procedure. The patient was placed in Trendelenburg position. RIGHT chest region was prepped using chlorhexidine scrub and draped in sterile fashion using a full drape. Sterile probe cover was placed on ultrasound probe. The medial and lateral heads of the sternocleidomastoid muscle were identified as was the carotid pulse. The internal jugular vein was identified using ultrasound. Anesthesia was achieved over the vein using 4 cc of 1% lidocaine. Using real-time out of plane guidance, the introducer needle was inserted into the internal jugular vein under direct ultrasound visualization. Venous blood was withdrawn. The syringe was removed and a guidewire was advanced into the introducer needle. The guidewire was visualized in the internal jugular vein by ultrasound. A small incision was made at the skin surface with a scalpel and the introducer needle was exchanged for a dilator over the guidewire. After appropriate dilation was obtained, the dilator was exchanged over a wire for a 7 Ukrainian, 20 cm central venous catheter. The wire was removed and the catheter was sutured in place at 15 cm. A IO patch was placed and a sterile Sorbaview shield was placed over the catheter at the insertion site. The patient tolerated the procedure well without any hemodynamic compromise. At time of procedure completion, all ports aspirated and flushed properly. Postprocedure x-ray shows central line in proper place. Estimated blood loss is approximately 10 cc. Indication for Procedure: Emergent need of vasoactive medications. Date: 06/11/19 Provider: ASTON PICKETT - Central Line Right Internal jugular Time completed: 16:30 Consent obtained: No - Emergent procedure Central line pre-insertion: Sterile PPE donned, Betadine prep applied, Chloraprep applied, Sterile drapes applied Central line lumen type: Triple Anesthetic type: 1% Lidocaine mL's of anesthesia: 3 Ultrasound guided: Yes CM at insertion site: 15 Line secured with sutures: Yes Central line post-insertion: Blood return from lumens, Biopatch applied, Sutured, Sterile dressing applied, Position confirmed w/ CXR Number of attempts: 1 Complications: No
--- NOTE | 2019-06-12 13:13 | Operative Report ---
Bedside Procedure - History of Present Illness History of Present Illness: Indication: Blood pressure monitoring, blood draws. Procedure drivematic machine operator: RANDEE Tomas Attending physician: Aurelia Consent: The procedure was performed emergently and the permission was implied because of the emergent nature. Procedure summary: A timeout was performed. My hands were washed immediately prior to the procedure. I were surgical cap, mask with protective eyewear, sterile gown and sterile gloves throughout the procedure. After an Azael test was performed to ensure adequate perfusion and collateral circulation, the right wrist was prepped using chlorhexidine scrub and draped in sterile fashion. A radial pulse was identified and the wrist was positioned in the optimal position for radial cannulation. Anesthesia was achieved using 1% lidocaine. I was unable to cannulate the right radial artery. His left radial artery was prepped and draped in a sterile fashion and an attempt was made to cannulate the left radial artery. I was unable to cannulate the left radial artery. The left axillary area was prepped and draped in a sterile fashion. Left axillary artery was cannulated without difficulty. Using the radial arterial line kit, a needle was inserted into the axillary artery. Arterial blood was seen to pulsate in the flash chamber. The internal guidewire was advanced easily into the axillary artery. The catheter was then advanced over the wire and the needle and wire were withdrawn. The catheter was sutured in place. A sterile OpSite was placed over the catheter at the insertion site. The patient tolerated the procedure without any hemodynamic compromise. At the time of procedure completion, the catheter was connected to the production operations inspector and calibrated. Appropriate waveform and blood pressure tracing was observed. Estimated blood loss is 15cc. Indication for Procedure: Blood pressure monitoring, blood draws. Date: 06/11/19 Provider: JAILYN MONROY - Additional Procedures Arterial Line Time performed: 18:00
--- NOTE | 2019-06-12 13:33 | Operative Report ---
Bedside Procedure - History of Present Illness History of Present Illness: Indication: Respiratory Failure Procedure clay dry press operator: RANDEE Tomas Attending physician: Dr. Moses Consent: The procedure was performed emergently and the permission was implied because of the emergent nature. Procedure summary: A timeout was performed. My hands were washed immediately prior to the procedure. I were surgical cap, mask with protective eyewear, gown and gloves throughout the procedure. The patient was placed on a cardiac monitor technician including continuous pulse oximetry. Rapid sequence intubation was conducted. The patient received 2 mg of Versed for induction. Cricoid pressure was maintained from time induction agent was given the time of cuff balloon inflation. Using a size 4 laryngoscope and a size 0.5 endotracheal tube with stylette, the patient was intubated on the first attempt. The stylette was removed and the cuff balloon was inflated. Appropriate endotracheal tube position was confirmed by direct visualization of vocal cord passage, CO2 colorimetric indicator and symmetric breath sounds. The tube was secured at 24 centimeters at the lips. Post intubation chest x-ray confirms ET tube at 3 centimeters above the cathryn. Indication for Procedure: Respiratory failure Date: 06/11/19 Provider: JAILYN MONROY
[2019-06-12] MEDS: IPRATROPIUM/ALBUTEROL 0.5-2.5 MG/3 ML AMPUL NEB SCH ×2 (13:56→20:41)
--- NOTE | 2019-06-12 15:25 | PDOC CRITICAL CARE PROG REPORT ---
General Date:: 06/12/19 ICU Day:: 1 Ventilator Day:: 1 Hospital Day:: 1 Resuscitation Status: Full Code Review of systems relevant to events:: Please see full review of systems below. Reason for ICU Addmission:: Patient admitted to ICU for acute respiratory failure secondary to COPD exacerbation, pneumonia, altered mental status. - Medications: Medications reviewed and adjusted accordingly: Yes Physical Exam Vital Signs: Temp Pulse Resp BP Pulse Ox 98.1 F 96 23 H 159/76 H 99 06/12/19 12:37 06/12/19 12:42 06/12/19 12:42 06/12/19 12:37 06/12/19 12:42 Intake & Output 06/11/19 06/12/19 06/13/19 06:59 06:59 06:59 Intake Total 3393 386 Output Total 545 225 Balance 2848 161 Weight 48.5 kg 48.5 kg Weight/Height Weight 48.5 kg Height 6 ft 1 in General appearance: PRESENT: no acute distress Head exam: PRESENT: atraumatic Eye exam: PRESENT: EOMI, PERRLA. ABSENT: periorbital swelling Ear exam: PRESENT: normal external ear exam. ABSENT: bleeding Mouth exam: PRESENT: moist, other Neck exam: PRESENT: other - Unable to fully extend neck.. ABSENT: full ROM, JVD Respiratory exam: PRESENT: other - Weak inspiratory effort. Breath sounds diminished throughout, very diminished over the right lower lung field. No rhonchi or wheezing appreciated Cardiovascular exam: PRESENT: RRR, +S1, +S2 Pulses: PRESENT: normal carotid pulses, normal radial pulses, normal femoral pulses Vascular exam: PRESENT: normal capillary refill GI/Abdominal exam: PRESENT: normal bowel sounds. ABSENT: ascites, distended Extremities exam: ABSENT: pedal edema Musculoskeletal exam: PRESENT: other - Cachectic with muscle wasting Neurological exam: PRESENT: other - Muscle spasticity and tremor. Psychiatric exam: PRESENT: appropriate affect Skin exam: PRESENT: warm. ABSENT: abrasion, rash, skin tears Tubes/Lines: PRESENT: Central Line, Arterial Catheter Laboratory/Radiographs Laboratory Results: 06/12/19 03:32 06/12/19 03:32 06/11/19 06/11/19 06/11/19 13:35 13:35 14:16 WBC 13.8 H RBC 4.72 Hgb 12.6 L Hct 39.5 MCV 84 MCH 26.7 L MCHC 31.9 L RDW 14.6 H Plt Count 153 Seg Neutrophils % 88.3 H Carbonic Acid HCO3/H2CO3 Ratio ABG pH ABG pCO2 ABG pO2 ABG HCO3 ABG O2 Saturation ABG Base Excess FiO2 Sodium Potassium Chloride Carbon Dioxide Anion Gap BUN Creatinine Est GFR ( Amer) Glucose Lactic Acid 0.7 Calcium Phosphorus Magnesium Ferritin Total Bilirubin AST Alkaline Phosphatase Ammonia C-Reactive Protein Total Protein Albumin Lipase 49.0 Urine Color Urine Appearance Urine pH Ur Specific Johnston Urine Protein Urine Glucose (UA) Urine Ketones Urine Blood Urine Nitrite Ur Leukocyte Esterase Urine WBC (Auto) Urine RBC (Auto) 06/11/19 06/11/19 06/11/19 14:19 15:30 16:08 WBC RBC Hgb Hct MCV MCH MCHC RDW Plt Count Seg Neutrophils % Carbonic Acid HCO3/H2CO3 Ratio ABG pH 6.77 L* ABG pCO2 ABG pO2 64.9 L ABG HCO3 ABG O2 Saturation ABG Base Excess FiO2 80% Sodium Potassium Chloride Carbon Dioxide Anion Gap BUN Creatinine Est GFR ( Amer) Glucose Lactic Acid Calcium Phosphorus Magnesium Ferritin Total Bilirubin AST Alkaline Phosphatase Ammonia 59.5 H C-Reactive Protein Total Protein Albumin Lipase Urine Color YELLOW Urine Appearance CLOUDY Urine pH 5.0 Ur Specific Johnston 1.027 Urine Protein 100 H Urine Glucose (UA) NEGATIVE Urine Ketones TRACE H Urine Blood NEGATIVE Urine Nitrite NEGATIVE Ur Leukocyte Esterase NEGATIVE Urine WBC (Auto) 9 Urine RBC (Auto) 2 06/11/19 06/11/19 06/11/19 16:08 18:50 22:22 WBC RBC Hgb Hct MCV MCH MCHC RDW Plt Count Seg Neutrophils % Carbonic Acid Cancelled 2.29 H 1.21 HCO3/H2CO3 Ratio Cancelled 12:1 21:1 ABG pH Cancelled 7.20 L* 7.43 ABG pCO2 Cancelled 76.2 H* 40.3 ABG pO2 Cancelled 256.0 H 48.9 L ABG HCO3 Cancelled 29.4 H 26.3 H ABG O2 Saturation Cancelled 99.4 H 85.8 L ABG Base Excess Cancelled -0.1 1.9 FiO2 Cancelled 100% 45% Sodium Potassium Chloride Carbon Dioxide Anion Gap BUN Creatinine Est GFR ( Amer) Glucose Lactic Acid Calcium Phosphorus Magnesium Ferritin Total Bilirubin AST Alkaline Phosphatase Ammonia C-Reactive Protein Total Protein Albumin Lipase Urine Color Urine Appearance Urine pH Ur Specific Johnston Urine Protein Urine Glucose (UA) Urine Ketones Urine Blood Urine Nitrite Ur Leukocyte Esterase Urine WBC (Auto) Urine RBC (Auto) 06/12/19 06/12/19 06/12/19 03:32 03:32 03:32 WBC 6.9 RBC 3.65 L Hgb 9.8 L D Hct 29.7 L MCV 82 MCH 26.8 L MCHC 32.9 RDW 14.4 H Plt Count 120 L Seg Neutrophils % Carbonic Acid HCO3/H2CO3 Ratio ABG pH ABG pCO2 ABG pO2 ABG HCO3 ABG O2 Saturation ABG Base Excess FiO2 Sodium 132.2 L Potassium 4.1 Chloride 98 Carbon Dioxide 28 D Anion Gap 6 BUN 29 H Creatinine 0.59 Est GFR ( Amer) > 60 Glucose 117 H Lactic Acid Calcium 8.4 Phosphorus 1.9 L Magnesium 2.0 Ferritin 695.00 H Total Bilirubin 0.9 AST 39 Alkaline Phosphatase 46 Ammonia C-Reactive Protein 37.8 H Total Protein 4.9 L Albumin 2.6 L Lipase Urine Color Urine Appearance Urine pH Ur Specific Johnston Urine Protein Urine Glucose (UA) Urine Ketones Urine Blood Urine Nitrite Ur Leukocyte Esterase Urine WBC (Auto) Urine RBC (Auto) 06/12/19 04:27 WBC RBC Hgb Hct MCV MCH MCHC RDW Plt Count Seg Neutrophils % Carbonic Acid HCO3/H2CO3 Ratio ABG pH ABG pCO2 ABG pO2 ABG HCO3 ABG O2 Saturation ABG Base Excess FiO2 Sodium Potassium Chloride Carbon Dioxide Anion Gap BUN Creatinine Est GFR ( Amer) Glucose Lactic Acid Calcium Phosphorus Magnesium Ferritin Total Bilirubin AST Alkaline Phosphatase Ammonia < 8.7 L C-Reactive Protein Total Protein Albumin Lipase Urine Color Urine Appearance Urine pH Ur Specific Johnston Urine Protein Urine Glucose (UA) Urine Ketones Urine Blood Urine Nitrite Ur Leukocyte Esterase Urine WBC (Auto) Urine RBC (Auto) 06/11/19 06/11/19 13:35 13:35 Creatine Kinase 177 H CK-MB (CK-2) 7.25 H Troponin I < 0.012 Impressions: Chest X-Ray 06/11/19 13:13 IMPRESSION: No acute cardiopulmonary disease. Hyperinflated lungs which can be seen with obstructive lung disease. Head CT 06/11/19 13:13 IMPRESSION: NORMAL BRAIN CT WITHOUT CONTRAST. EVIDENCE OF ACUTE STROKE: NO. All labs, radiographs, diagnostic studies and EKGs were personally reviewed: Yes In addition, reports of radiographic and diagnostic studies were read: Yes Assessment and Plan - Diagnosis (1) Altered mental status Qualifiers: Altered mental status type: stupor Qualified Code(s): R40.1 - Stupor Is this a current diagnosis for this admission?: Yes Plan: Resolved. Patient is awake alert, answering questions appropriately. (2) COPD exacerbation Is this a current diagnosis for this admission?: Yes Plan: Resolved. Patient has been extubated, no wheezing or rhonchi. Breath sounds remain diminished. His respiratory insufficiency most likely represents a neurologic process with prolonged atelectasis and development of bilateral infiltrates. Plan Summary: ICU day: 1 More information learn today about his history immediately proceeding being seen in the ED. Patient was referred to a neurologist for neuro symptoms including profound generalized weakness. He was being carried by his to the car to go to a neurologist appointment when she fell and was able able to support him. This prompted activation of EMS. At that time, patient was found to be very weak. He became obtunded on the way into the emergency room. MRI in April described below. Neuro: MRI performed on 04/15/2019. Patient has a history of multilevel degenerative disc disease including prominent facet arthrosis contributing to moderate and severe bilateral foraminal stenosis throughout the lumbar spine. He had severe muscle twitching and mild spasticity yesterday and today. Which is likely contributing to his cachectic state. Pulmonary: Patient had no difficulty breathing while on minimal support on the ventilator. His tidal volumes on a pressure support of 8 exceeded 500 mL. He was extubated to face tent successfully. No upper airway edema or stridor. He was placed on 50% FiO2 but within 20 minutes, became mildly short of breath. His breath sounds are diminished but otherwise his chest seems benign. Chest x- ray shows severe bilateral lung over expansion consistent with COPD. His breath sounds are diminished throughout, consistent with advanced COPD. His right lower lung field has particularly decreased breath sounds and poor aeration. This is consistent with his chest x-ray which shows right-sided atelectasis versus possible pneumonia. He is being treated with Rocephin, Solu-Medrol and Duo nebs. Patient was placed on BiPAP support and seems to be tolerating that well. Cardiovascular: Blood pressure has remained stable overnight and patient was weaned off of vasoactive medications. Ultrasound of his right IJ during line placement shows considerable hypovolemia. Indwelling catheters: Heme: H&H is stable at 9.8/29.7. DVT prophylaxis with heparin 5000 units subcu every 8. Renal: Mild hyponatremia. Likely secondary to high-volume fluid resuscitation with LR. Will convert to normal saline and lower the volume rate. Gastrointestinal: No intra-abdominal issues. Patient's abdominal exam seems benign. GI prophylaxis with Pepcid 20 mg IV every 12. Diet: On hold for now due to need for BiPAP. : Gardner catheter in place. No signs of infection or discomfort. ID: Patient started on Rocephin 2 g daily for empiric treatment of possible pneumonia in the setting of COPD. WBC is 6.9. Patient remains afebrile. Barriers to discharge from ICU: Patient likely suffering from respiratory insufficiency secondary to neurologic compromise and overall muscle weakness. I believe he would benefit from neurologic care which is not available at this facility. He will most likely require BiPAP support during transport. Case discussed in detail with Dr. Moses. Critical Time Critical Time (minutes): 70 Level of Care: ICU -: 1. The care of a critical patient is a dynamic process. This note is a statement services representative synopsis but static in nature. The timeframe for treatments given in order is not necessarily the actual time these treatments may have been done. 2. This patient requires critical care secondary to ongoing requirements for t herapy not offered or safe outside the critical care environment. Transfer to a lower level of care will result in altered life or limb morbidity and mortality. 3. Multidisciplinary rounds completed. 4. ABCDE bundle addressed.
[2019-06-12] MEDS: NORMAL SALINE 1000 ML 1,000 ML IV PRN (17:50)
[2019-06-12 18:26] LABS: ARTERIAL BLOOD BASE EXCESS -2.6 mmol/L; ARTERIAL BLOOD FIO2 40%; ARTERIAL BLOOD H2CO3 2.47 mmol/L (1.05-1.35); ARTERIAL BLOOD HCO3 27.6 mmol/L (20-24); ARTERIAL BLOOD O2 SATURATION 93.5 % (94-98); ARTERIAL BLOOD PO2 88.7 mmHg (80-100); ARTERIAL BLOOD TOTAL CO2 30.1 mmol/L (23-27)
[2019-06-12 18:28] LABS: ARTERIAL BLOOD PCO2 82.1 mmHg (35-45); ARTERIAL BLOOD PH 7.14 (7.35-7.45)
[2019-06-12 19:33] LABS: ARTERIAL BLOOD BASE EXCESS -1.2 mmol/L; ARTERIAL BLOOD H2CO3 2.35 mmol/L (1.05-1.35); ARTERIAL BLOOD HCO3 28.3 mmol/L (20-24); ARTERIAL BLOOD O2 SATURATION 99.2 % (94-98); ARTERIAL BLOOD PO2 217.4 mmHg (80-100); ARTERIAL BLOOD TOTAL CO2 30.7 mmol/L (23-27)
[2019-06-12 19:37] LABS: ARTERIAL BLOOD FIO2 65%
[2019-06-12 19:38] LABS: ARTERIAL BLOOD PCO2 78.2 mmHg (35-45); ARTERIAL BLOOD PH 7.18 (7.35-7.45)
[2019-06-12 19:40] LABS: C DIFFICILE GDH NEGATIVE (NEGATIVE)
[2019-06-12] MEDS: CEFTRIAXONE 2 GM/D5W RTU 2 GM/50 ML RTUPB IV SCH (21:01)
[2019-06-12 21:27] LABS: ARTERIAL BLOOD BASE EXCESS 5.7 mmol/L; ARTERIAL BLOOD H2CO3 1.84 mmol/L (1.05-1.35); ARTERIAL BLOOD HCO3 32.5 mmol/L (20-24); ARTERIAL BLOOD O2 SATURATION 98.4 % (94-98); ARTERIAL BLOOD PH 7.35 (7.35-7.45); ARTERIAL BLOOD PO2 131.6 mmHg (80-100); ARTERIAL BLOOD TOTAL CO2 34.4 mmol/L (23-27)
[2019-06-12 21:34] LABS: ARTERIAL BLOOD FIO2 50%
[2019-06-13 00:52] LABS: ARTERIAL BLOOD BASE EXCESS -1.1 mmol/L; ARTERIAL BLOOD FIO2 50%; ARTERIAL BLOOD H2CO3 2.02 mmol/L (1.05-1.35); ARTERIAL BLOOD HCO3 27.3 mmol/L (20-24); ARTERIAL BLOOD O2 SATURATION 98.8 % (94-98); ARTERIAL BLOOD PH 7.23 (7.35-7.45); ARTERIAL BLOOD PO2 171.6 mmHg (80-100); ARTERIAL BLOOD TOTAL CO2 29.4 mmol/L (23-27)
[2019-06-13] MEDS ORDERED: TRAMADOL HCL 50 MG TABLET NG PRN (00:59)
[2019-06-13] MEDS: IPRATROPIUM/ALBUTEROL 0.5-2.5 MG/3 ML AMPUL NEB SCH ×4 (02:03→20:13)
[2019-06-13] MEDS: NORMAL SALINE 1000 ML 1,000 ML IV PRN ×2 (03:50→09:15)
[2019-06-13] MEDS ORDERED: NALOXONE HCL INJ/PF 0.4 MG/1 ML SDV ONE (04:16)
[2019-06-13] MEDS ORDERED: NALOXONE HCL INJ/PF 0.4 MG/1 ML SDV IV ONE ×2 (04:33→05:30)
[2019-06-13 04:48] LABS: ARTERIAL BLOOD BASE EXCESS -3.3 mmol/L; ARTERIAL BLOOD FIO2 30%; ARTERIAL BLOOD H2CO3 2.27 mmol/L (1.05-1.35); ARTERIAL BLOOD HCO3 26.5 mmol/L (20-24); ARTERIAL BLOOD O2 SATURATION 97.9 % (94-98); ARTERIAL BLOOD PO2 137.3 mmHg (80-100); ARTERIAL BLOOD TOTAL CO2 28.8 mmol/L (23-27)
[2019-06-13 04:50] LABS: ARTERIAL BLOOD PCO2 75.4 mmHg (35-45); ARTERIAL BLOOD PH 7.16 (7.35-7.45)
[2019-06-13 04:56] LABS: HEMATOCRIT 29.6 % (37.9-51.0); HEMOGLOBIN 9.6 g/dL (13.5-17.0); MEAN CORPUSCULAR HEMOGLOBIN 26.6 pg (27.0-33.4); MEAN CORPUSCULAR HGB CONC 32.3 g/dL (32.0-36.0); MEAN CORPUSCULAR VOLUME 83 fl (80-97); PLATELET COUNT 116 10^3/uL (150-450); RED BLOOD COUNT 3.59 10^6/uL (4.35-5.55); RED CELL DISTRIBUTION WIDTH 14.9 % (11.5-14.0); WHITE BLOOD COUNT 12.9 10^3/uL (4.0-10.5)
[2019-06-13] MEDS: HEPARIN SOD (PORCINE) 5,000 UNIT/ML 1 ML VIAL SUBCUT SCH ×2 (05:06→15:23)
[2019-06-13 05:08] LABS: ANION GAP 5 (5-19); BLOOD UREA NITROGEN 19 mg/dL (7-20); CALCIUM 7.9 mg/dL (8.4-10.2); CARBON DIOXIDE 31 mmol/L (22-30); CHLORIDE 102 mmol/L (98-107); GLUCOSE 96 mg/dL (75-110); POTASSIUM 3.3 mmol/L (3.6-5.0)
[2019-06-13] MEDS ORDERED: KETAMINE HCL INJ 500 MG/10 ML VIAL ONE (05:26)
[2019-06-13] MEDS ORDERED: LORAZEPAM INJ 2 MG/1 ML VIAL ONE (05:26)
[2019-06-13 05:28] LABS: C-REACTIVE PROTEIN 182.8 mg/L (<10.0)
[2019-06-13 05:29] LABS: ABSOLUTE LYMPHOCYTES# (MANUAL) 0.8 10^3/uL (0.5-4.7); ABSOLUTE MONOCYTES # (MANUAL) 0.4 10^3/uL (0.1-1.4); BAND NEUTROPHILS % (MANUAL) 8 % (3-5); BASOPHILS % (MANUAL) 0 % (0-2); EOSINOPHILS % (MANUAL) 0 % (0-6); LYMPHOCYTES % (MANUAL) 6 % (13-45); MONOCYTES % (MANUAL) 3 % (3-13); SEGMENTED NEUTROPHILS % (MAN) 83 % (42-78); TOTAL CELLS COUNTED 100
[2019-06-13 05:32] LABS: TOXIC VACUOLATION PRESENT
[2019-06-13 05:33] LABS: ANISOCYTOSIS SLIGHT; HYPOCHROMASIA SLIGHT; PLATELET COMMENT DECREASED
[2019-06-13 05:35] LABS: TARGET CELLS SLIGHT
[2019-06-13] MEDS ORDERED: KETAMINE HCL INJ 500 MG/10 ML VIAL IV ONE (06:00)
[2019-06-13] MEDS ORDERED: LORAZEPAM INJ 2 MG/1 ML VIAL IV ONE (06:00)
[2019-06-13] MEDS ORDERED: ROCURONIUM BROMIDE INJ 50 MG/5 ML VIAL IV ONE ×2 (06:00→10:13)
[2019-06-13] MEDS ORDERED: PHENYLEPHRINE HCL INJ/PF 10 MG/1 ML SDV ONE (07:07)
--- NOTE | 2019-06-13 07:19 | RADIOLOGY REPORT (SQ) ---
AP Portable chest: 06/13/2019 6:16 AM CDT History: 64-year old patient with respiratory failure. Comparison: Chest radiograph performed 06/13/2019. Findings: The cardiomediastinal silhouette is normal in size. No pneumothorax is seen. There are similar airspace opacities at the right lung base. No discrete pleural effusion is apparent. A right internal jugular central line catheter tip projects near the mid SVC. An endotracheal tube tip projects approximately 6.4 cm above the cathryn. Atherosclerotic calcifications are seen at the aortic arch. A nasogastric tube tip is seen overlying the left upper quadrant of the abdomen, projecting at the stomach. There is a line seen overlying the left apex which could be external to the patient. Impression: There are similar airspace opacities at the right lung base which may reflect infection or aspiration.
[2019-06-13] MEDS ORDERED: NORMAL SALINE 1000 ML 2,000 ML IV ONE (07:56)
[2019-06-13] MEDS ORDERED: DEXTROSE 5%-WATER 250 ML with PHENYLEPHRINE HCL 40 MG IV PRN ×2 (07:57)
[2019-06-13 08:28] LABS: ARTERIAL BLOOD BASE EXCESS -0.2 mmol/L; ARTERIAL BLOOD HCO3 22.7 mmol/L (20-24); ARTERIAL BLOOD O2 SATURATION 97.7 % (94-98); ARTERIAL BLOOD PCO2 29.9 mmHg (35-45); ARTERIAL BLOOD PO2 92.7 mmHg (80-100); ARTERIAL BLOOD TOTAL CO2 23.6 mmol/L (23-27)
[2019-06-13 08:30] LABS: ARTERIAL BLOOD FIO2 30%
[2019-06-13] MEDS ORDERED: MIDAZOLAM HCL 50 MG/100 ML RTUINJ ONE (08:44)
[2019-06-13] MEDS: MIDAZOLAM HCL 50 MG/100 ML RTUINJ IV PRN ×2 (08:45→16:55)
[2019-06-13] MEDS: GABAPENTIN 300 MG CAPSULE NG SCH (09:02)
[2019-06-13] MEDS: METHYLPREDNISOLONE INJ 40 MG/1 ML SDV IV SCH (09:02)
[2019-06-13] MEDS: FAMOTIDINE INJ/PF 20 MG/2 ML SDV IV SCH (09:02)
[2019-06-13] MEDS ORDERED: VANCOMYCIN HCL 0 MG in DEXTROSE 5%-WATER 250 ML IV NR (11:15)
[2019-06-13] MEDS ORDERED: VANCOMYCIN HCL 1,000 MG in DEXTROSE 5%-WATER 250 ML IV SCH (12:00)
--- NOTE | 2019-06-13 15:18 | PDOC CRITICAL CARE PROG REPORT ---
General Date:: 06/13/19 ICU Day:: 2 Ventilator Day:: 2 Resuscitation Status: Full Code Events in the past 12 to 24 Hours:: 06/12: Yesterday morning, the patient was extubated to aerosolized facemask. Within several hours, he began feeling short of breath and weak. His blood gas showed an acute elevation in CO2, and he was placed on BiPAP support. He did well on BiPAP for several hours until again becoming weak. His blood gas, despite BiPAP intervention, showed an acute hypercapnic respiratory failure. He was intubated early this morning. During this time, he became acutely hypotensive and was placed on Levophed and Michael-Synephrine and given 2 L of LR. He is now more hemodynamically stable. He remains on Michael-Synephrine but the Levophed has been weaned off. Respiratory acidosis has resolved with mechanical ventilation. The etiology of his respiratory failure seems unclear. He is not showing typical symptoms of a COPD exacerbation. No wheezes, no significant pneumonia. Patient did not express shortness of breath but stated he felt weak. He is cachectic with severe muscle wasting. He has an unclear neurologic history and was seeking work-up with a neurologist when his overwhelming weakness prompted the initial EMS call. Due to his neurologic component, I am initiating a transfer to [facility] where he will have access to an intensive care program with neurology consult. Review of systems relevant to events:: Please see full review of systems below. Reason for ICU Addmission:: Patient admitted to ICU for acute respiratory failure secondary to COPD exacerbation, pneumonia, altered mental status. - Medications: Medications reviewed and adjusted accordingly: Yes Physical Exam Vital Signs: Temp Pulse Resp BP Pulse Ox 95.2 F L 94 17 112/68 100 06/13/19 08:00 06/13/19 14:06 06/13/19 14:06 06/13/19 08:00 06/13/19 14:06 Intake & Output 06/12/19 06/13/19 06/14/19 06:59 06:59 06:59 Intake Total 3393 2344 711 Output Total 543 920 190 Balance 2848 1424 521 Weight 48.5 kg 52 kg Weight/Height Weight 52 kg Height 6 ft 1 in General appearance: PRESENT: no acute distress, other - Cachectic, severe muscle wasting. Head exam: PRESENT: atraumatic, normocephalic Eye exam: PRESENT: EOMI, PERRLA Ear exam: PRESENT: normal external ear exam. ABSENT: drainage Mouth exam: PRESENT: moist Neck exam: PRESENT: other - Difficulty extending neck.. ABSENT: JVD Respiratory exam: PRESENT: accessory muscle use, other - Breath sounds are diminished with no significant rhonchi or wheezes. Cardiovascular exam: PRESENT: RRR, +S1, +S2 Pulses: PRESENT: normal carotid pulses, normal radial pulses, +1 pedal pulses bilateral Vascular exam: PRESENT: normal capillary refill GI/Abdominal exam: PRESENT: normal bowel sounds, soft. ABSENT: ascites Extremities exam: PRESENT: other - Extremities are somewhat rigid with constant fine motor twitching. Musculoskeletal exam: ABSENT: ambulatory Neurological exam: PRESENT: alert, awake, oriented to time, oriented to sit uation, CN II-XII grossly intact, other - Profound weakness, constant twitching of bilateral extremities. Patient unable to fully extend neck. Tubes/Lines: PRESENT: Endotracheal Tube, Central Line, Arterial Catheter, Other - Right IJ TLC, axillary A-line in the left axilla. Laboratory/Radiographs Laboratory Results: 06/13/19 04:32 06/13/19 04:32 06/12/19 06/12/19 06/12/19 14:28 19:20 21:08 WBC RBC Hgb Hct MCV MCH MCHC RDW Plt Count Seg Neutrophils % Carbonic Acid 2.47 H 2.35 H 1.84 H HCO3/H2CO3 Ratio 11:1 12:1 17:1 ABG pH 7.14 L* 7.18 L* 7.35 ABG pCO2 82.1 H* 78.2 H* 61.0 H ABG pO2 88.7 217.4 H 131.6 H ABG HCO3 27.6 H 28.3 H 32.5 H ABG O2 Saturation 93.5 L 99.2 H 98.4 H ABG Base Excess -2.6 -1.2 5.7 FiO2 40% 65% 50% Sodium Potassium Chloride Carbon Dioxide Anion Gap BUN Creatinine Est GFR ( Amer) Glucose Calcium Phosphorus Magnesium Ferritin C-Reactive Protein 06/13/19 06/13/19 06/13/19 00:36 04:32 04:32 WBC RBC Hgb Hct MCV MCH MCHC RDW Plt Count Seg Neutrophils % Carbonic Acid 2.02 H 2.27 H HCO3/H2CO3 Ratio 13:1 11:1 ABG pH 7.23 L 7.16 L* ABG pCO2 67.0 H 75.4 H* ABG pO2 171.6 H 137.3 H ABG HCO3 27.3 H 26.5 H ABG O2 Saturation 98.8 H 97.9 ABG Base Excess -1.1 -3.3 FiO2 50% 30% Sodium Potassium Chloride Carbon Dioxide Anion Gap BUN Creatinine Est GFR ( Amer) Glucose Calcium Phosphorus 4.2 Magnesium Ferritin C-Reactive Protein 06/13/19 06/13/19 06/13/19 04:32 04:32 08:20 WBC 12.9 H RBC 3.59 L Hgb 9.6 L Hct 29.6 L MCV 83 MCH 26.6 L MCHC 32.3 RDW 14.9 H Plt Count 116 L Seg Neutrophils % Not Reportable Carbonic Acid 0.90 L HCO3/H2CO3 Ratio 25:1 ABG pH 7.50 H ABG pCO2 29.9 L ABG pO2 92.7 ABG HCO3 22.7 ABG O2 Saturation 97.7 ABG Base Excess -0.2 FiO2 30% Sodium 137.6 Potassium 3.3 L Chloride 102 Carbon Dioxide 31 H Anion Gap 5 BUN 19 Creatinine 0.39 L Est GFR ( Amer) > 60 Glucose 96 Calcium 7.9 L Phosphorus Magnesium 1.9 Ferritin 997.00 H C-Reactive Protein 182.8 H 06/11/19 06/11/19 13:35 13:35 Creatine Kinase 177 H CK-MB (CK-2) 7.25 H Troponin I < 0.012 Impressions: Head CT 06/11/19 13:13 IMPRESSION: NORMAL BRAIN CT WITHOUT CONTRAST. EVIDENCE OF ACUTE STROKE: NO. All labs, radiographs, diagnostic studies and EKGs were personally reviewed: Yes In addition, reports of radiographic and diagnostic studies were read: Yes Assessment and Plan - Diagnosis (1) Altered mental status Qualifiers: Altered mental status type: stupor Qualified Code(s): R40.1 - Stupor Is this a current diagnosis for this admission?: Yes Plan: Altered mental status was initially resolved after appropriate resuscitation with mechanical ventilation. He was re-sedated for intubation this morning. (2) COPD exacerbation Is this a current diagnosis for this admission?: Yes Plan: Mr. Polanco does have signs and symptoms of COPD. Respiratory failure may be attributed to a COPD exacerbation, however he was very quick to recover, ventilated and oxygenated easily with mechanical ventilator support and does not present like a typical COPD exacerbation. We will continue steroids, duo nebs, and antibiotics for now. Plan Summary: ICU day: 2 Neuro: MRI performed on 04/15/2019. Patient has a history of multilevel degenerative disc disease including prominent facet arthrosis contributing to moderate and severe bilateral foraminal stenosis throughout the lumbar spine. Shikha rangel had severe muscle twitching and mild spasticity yesterday and today. Which is likely contributing to his cachectic state. Patient was recently referred to a neurologist for symptoms including profound generalized weakness. He was being carried out by his to the car to go to a neurologist appointment when she was no longer able to support him. She called EMS and he became obtunded on the way to the emergency room. Pulmonary: Patient had no difficulty breathing while on minimal support on the ventilator. His tidal volumes on a pressure support of 8 exceeded 500 mL. He was extubated to face tent successfully. No upper airway edema or stridor. He was placed on 50% FiO2 but within 20 minutes, became mildly short of breath. His breath sounds are diminished but otherwise his chest seemed benign. Patient was placed on BiPAP at that time and did well until about 4:30 AM. He developed a worsening hypercapnic respiratory acidosis and was intubated. Chest x-ray shows severe bilateral lung over expansion consistent with COPD. His breath sounds are diminished throughout, consistent with advanced COPD. His right lower lung field has particularly decreased breath sounds and poor aeration. This is consistent with his chest x-ray which shows right-sided atelectasis versus possible pneumonia. He is being treated with Rocephin, Solu-Medrol and Duo nebs. Cardiovascular: Patient became hypotensive again during intubation. He is severely hypovolemic due to poor fluid intake over the past several weeks. He currently remains on Michael-Synephrine. Levophed has been weaned to off. Indwelling catheters: Right IJ TLC, left axillary A-line. Heme: H&H is stable at 9.6/29.6. DVT prophylaxis with heparin 5000 units subcu every 8. Renal: Mild Likely secondary to high-volume fluid resuscitation with LR. Gastrointestinal: No intra-abdominal issues. Patient's abdominal exam seems benign. GI prophylaxis with Pepcid 20 mg IV every 12. Diet: On hold for now. : Gardner catheter in place. No signs of infection or discomfort. ID: Patient started on Rocephin 2 g daily for empiric treatment of possible pneumonia in the setting of COPD. WBC dated to 12.9 today. Patient remains afebrile. Barriers to discharge from ICU: Patient likely suffering from respiratory insufficiency secondary to neurologic compromise and overall muscle weakness. I believe he would benefit from neurologic care which is not available at this facility. Case discussed in detail with Dr. Moses agrees with hospital transfer. I contacted [facility] and spoke to their elementary esl teacher, Dr. Pizano who accepted the patient. Although not expecting his COVID test to return positive, we are waiting official results. Critical Time Critical Time (minutes): 65 Level of Care: ICU -: 1. The care of a critical patient is a dynamic process. This note is a primary care sales representative synopsis but static in nature. The timeframe for treatments given in order is not necessarily the actual time these treatments may have been done. 2. This patient requires critical care secondary to ongoing requirements for therapy not offered or safe outside the critical care environment. Transfer to a lower level of care will result in altered life or limb morbidity and mortality. 3. Multidisciplinary rounds completed. 4. ABCDE bundle addressed.
[2019-06-13 18:03] VITALS: BP 111/66
--- NOTE | 2019-06-14 02:08 | Operative Report ---
Bedside Procedure - History of Present Illness History of Present Illness: HPI: 64 year-old gentlemen admitted with hypercapnic respiratory failure presumably from COPD exacerbation with possibility of pneumonia whom was extubated yesterday. His respiratory support requirements increased requiring BiPAP for ventilation. His respiratory acidosis when I came on duty demonstrated a pH 7.18 and PaCO2 78, though his BiPAP showed a mask leak of >60%, for which I adjusted the mask decreasing the leak to 50% as well as increased the IPAP from 12 to 16 (most patient could tolerate) increasing his Vt to 500-550 mL. Given concern for the leak, the decision was made to quickly shave his aquino with an electric razor to minimize time off BiPAP after which, his cuff leak decreased to 30% which is acceptable (especially considering an NG tube being in place). A repeat ABG was obtained yielding a pH 7.35 PaCO2 61 with less work of breathing for which the decision was made to hold off on intubation. Throughout the overnight hours, I observed that when the patient was resting with his eyes closed, his tidal volume decreased to <300 and RR <10 for which his minute ventilation was <3 L/min with associated mild work of breathing. He would then wake himself up, presumably with hypercapnia, breath faster and deeper at a RR of ~22 with Vt 550 mL with moderate work of breathing. He said he still felt okay from a respiratory standpoint and desired to avoid intubation. He had also received Hydrocodone which could be somewhat contributory, for which I discontinued. After observing Mr Polanco repeat the respiratory pattern above for some time, he received low-dose Naloxone to avoid completely antagonizing opioid-receptor sites which had no effect on his mentation or respiratory status. After obtaining another ABG demonstrating worsening hypercapnia, the decision was made to re-intubate Mr Polanco for which he understood. I agree with Mr Pickett that Mr Polanco's clinical picture is quite odd and there may be more of an underlying neurological component to his respiratory failure given his baseline neurological symptoms he was experiencing weeks to months prior to admission. He will likely require transfer to a center offering neurological services to investigate his condition further. Date/Time of procedure: 06/13/2019 at 05:45 am PROCEDURE: ENDOTRACHEAL INTUBATION DIAGNOSIS: ACUTE HYPERCAPNIC RESPIRATORY FAILURE PROCEDURALIST: ROSIO Du Anesthesia/Meds: 100 mg Ketamine, 50 mg Rocuronium, 2 mg of Ativan post- procedure to prevent re-emergence phenomenon Complications: none Verbal consent was obtained from Mr Polanco. He was then placed in a semi- recumbent position with head of bed at 20 degrees remaining with the BiPAP mask on for pre-oxygenation. His existing NG tube was placed on full suction to prevent aspiration should ambu bag assisted ventilations be required, though is certainly not desired in a COVID PUI patient. Rocuronium followed by Ketamine was administered in rapid succession due to timing of onset to reduce apnea time. Once sedation was achieved, the BiPAP mask was removed and a video laryngoscope was gently introduced without causing any trauma to the teeth or soft tissues of the oropharynx. The nasogastric tube was identified entering the esophagus posteriorly. With a subtle bello-caudal lift, the epiglottis moved anteriorly allowing visualization of the vocal cords. A 7.5 Fr endotracheal tube was then gently advanced through the cords under direct observation and the stylet was removed. The cuff balloon was inflated with 10 mL of air, calorimetric color change was confirmed, chest expansion symmetrical with equal rise and fall with ambu bag assisted ventilations, and tube condensation was observed. Breath sounds were not auscultated due to the confines of PPE and risk of fomite transfer given that patient is currently a person under investigation for COVID-19. ETT secured at 23 cm at the teeth with a Norman apparatus. A chest x-ray was ordered confirming successful placement of the ETT, no pneumothorax. Indication for Procedure: acute hypercapnic respiratory failure Date: 06/11/19 Provider: GRANT ARREDONDO
--- NOTE | 2019-07-10 15:24 | PDOC TRANSFER SUMMARY ---
General Admission Date/PCP: 06/11/19 17:15 Patient admitted to the ICU for acute respiratory Failrue secondary to COPD exacerbation, pneumonia and altered mental status. Admission Date: 06/11/19 Transfer Date: 06/13/19 Accepting Facility: [facility] Resuscitation Status: Full Code - Transfer Diagnosis (1) Altered mental status Is this a current diagnosis for this admission?: Yes (2) COPD exacerbation Is this a current diagnosis for this admission?: Yes - Transfer Medications Home Medications: Ferrous Sulfate [Feosol 325 mg Tablet] 325 mg PO DAILY 03/14/18 Multivitamin [Tab-A-Fabian (Multiple Vitamin) Tablet] 1 tab PO DAILY 03/14/18 Albuterol Sulfate [Albuterol Sulfate Hfa] 1 puff IH Q4HP PRN 06/11/19 Albuterol Sulfate [Ventolin 0.083% Neb 2.5 mg/3 ml Ampul] 1 vial NEB Q6HP PRN 06/11/19 Fluticasone/Umeclidin/Vilanter [Trelegy 100-62.5-25 Mcg Ellipta 14 Dose/Dpi] 1 puff IH DAILY 06/11/19 Megestrol Acetate 40 mg PO BID 06/11/19 - Allergies Allergies/Adverse Reactions: No Known Allergies Allergy (Verified 05/19/19 13:23) Hospital Course Hospital Course: Patient was admitted on 06/11/19 for respiratory failure and altered mental status with a history of COPD. He was intubated and then extubated to aerosolized facemask on 06/11. Within several hours, he began feeling short of breath and weak. His blood gas showed an acute elvation in CO2 and he was placed on BIPAP support. He did well on BIPAP for several hours until he again became weak. His blood gas, despite BiPAP intervention, showed an acute hypercapnic respiratory Failure. He was intubated again on 06/12. He became acutely hy potensive and was placed on Levophed and Michael-Synephrine. Levophed was then weaned off. Respiratory acidosis had resolved with mechanical ventilation. The etiology of his respiratory failure remained unclear. He did not show typical symptoms of COPD exacerbation. No wheezes, no significant pneumonia. Patient did not express shortness of breath but expressed weakness. Patient is cachectic with severe muscle wasting. He has unclear neurologic history and was seeking work-up with a neurologist when his overwhelming weakness prompted the initial EMS call. Due to his neurologic componenet, a transfer was initiated to [facility] to gain access to an intensive care unit with neurologic consult shyam edwards. Physical Exam Vital Signs: Temp Pulse Resp BP Pulse Ox 97.7 F 95 16 111/66 96 06/13/19 20:00 06/13/19 20:16 06/13/19 20:16 06/13/19 18:00 06/13/19 20:16 General appearance: PRESENT: other - Cachectic Severe weakness. Head exam: PRESENT: atraumatic Eye exam: PRESENT: EOMI, PERRLA Ear exam: PRESENT: normal external ear exam. ABSENT: bleeding, drainage Mouth exam: PRESENT: dry mucosa, other Throat exam: ABSENT: tonsillar erythema, tonsillar exudate Neck exam: ABSENT: carotid bruit, lymphadenopathy, tenderness Respiratory exam: PRESENT: accessory muscle use, decreased breath sounds. ABSENT: crackles, rales, rhonchi, wheezes Cardiovascular exam: PRESENT: RRR, +S1, +S2 Pulses: PRESENT: normal carotid pulses, normal radial pulses, normal femoral pulses Vascular exam: PRESENT: normal capillary refill GI/Abdominal exam: PRESENT: soft. ABSENT: ascites, organolmegaly, tenderness Extremities exam: ABSENT: joint swelling, pedal edema Musculoskeletal exam: PRESENT: other - Severe muslce wasting. Neurological exam: PRESENT: alert, awake, CN II-XII grossly intact, other - as per HPI. Generalized weakness. Psychiatric exam: PRESENT: appropriate affect Skin exam: PRESENT: dry, intact Results Laboratory Results: 06/13/19 04:32 06/13/19 04:32 06/11/19 06/11/19 13:35 13:35 Creatine Kinase 177 H CK-MB (CK-2) 7.25 H Troponin I < 0.012 Impressions: Head CT 06/11/19 13:13 IMPRESSION: NORMAL BRAIN CT WITHOUT CONTRAST. EVIDENCE OF ACUTE STROKE: NO. Plan Discharge Plan: [facility] ICU. Time Spent: Greater than 30 Minutes
== END 2019-06-13 20:48 | disposition short-term general hospital (02) | DRG 208 ==
LOC: ER 13:05 → EH 17:15 → ICU 17:20
PROVIDERS: ADMIT Anesthesiology; ATTEND Anesthesiology
PROC: 5A1945Z Respiratory Ventilation, 24-96 Consecutive Hours (ICD-10-PCS; principal; 2019-06-11)
PROC: 0BH17EZ Insertion of Endotracheal Airway into Trachea, Via Natural or Artificial Opening (ICD-10-PCS; 2019-06-11)
PROC: 03H633Z Insertion of Infusion Device into Left Axillary Artery, Percutaneous Approach (ICD-10-PCS; 2019-06-11)
PROC: 02HV33Z Insertion of Infusion Device into Superior Vena Cava, Percutaneous Approach (ICD-10-PCS; 2019-06-11)
PROC: B548ZZA Ultrasonography of Superior Vena Cava, Guidance (ICD-10-PCS; 2019-06-11)
PROC: 0BH17EZ Insertion of Endotracheal Airway into Trachea, Via Natural or Artificial Opening (ICD-10-PCS; 2019-06-13)
PROC: 5A1935Z Respiratory Ventilation, Less than 24 Consecutive Hours (ICD-10-PCS; 2019-06-13)
DX: J96.02 Acute respiratory failure with hypercapnia (principal); J18.9 Pneumonia, unspecified organism; J44.1 Chronic obstructive pulmonary disease with (acute) exacerbation; J44.0 Chronic obstructive pulmonary disease with (acute) lower respiratory infection; R64 Cachexia; Z68.1 Body mass index [BMI] 19.9 or less, adult; I10 Essential (primary) hypertension; T46.1X6A Underdosing of calcium-channel blockers, initial encounter; M13.862 Other specified arthritis, left knee; M13.861 Other specified arthritis, right knee; D64.9 Anemia, unspecified; M51.36 Other intervertebral disc degeneration, lumbar region; Z03.818 Encounter for observation for suspected exposure to other biological agents ruled out; R40.2432 Glasgow coma scale score 3-8, at arrival to emergency department; Z96.659 Presence of unspecified artificial knee joint
CPT/HCPCS: 31500; 36415; 36600; 36620; 70450; 71045; 80048; 80053; 80076; 80307; 81001; 82140; 82550; 82553; 82728; 82803; 82962; 83605; 83690; 83735; 84100; 84484; 85025; 85027; 85379; 85610; 85730; 86140; 87040; 87070; 87077; 87086; 87088; 87186; 87205; 87252; 87324; 87449; 87635; 87804; 93005; 93010; 93503; 94002; 94003; 94640; 94660; 96365; 96366; 96368; 96375; 99291; 99292; J0461; J0696; J1642; J1644; J2060; J2250; J2310; J2370; J2920; J3010; J3370; J3490; J7030; J7040; J7060; J7120; J7620; S0028

== ENCOUNTER 2019-12-07 07:09 | Emergency (ER) | payer OTHER, MEDICARE, BC ==
--- NOTE | 2019-12-07 08:46 | ER Document Report ---
ED GI/ - General Chief Complaint: Blood in Catheter Stated Complaint: BLOOD IN URINE Time Seen by Provider: 12/07/19 08:12 Primary Care Provider: JACQUELINE GARCIA [Primary Care Provider] - Follow up in 1 week Notes: Patient is a 64-year-old male who presents to the emergency department with blood in his urinary catheter. is at bedside to provide additional history, as the patient has ALS and is currently on a ventilator. states that she noticed blood in his urinary catheter this morning. He has not had bl ood in his catheter before. Patient has had his urinary catheter for a month. He was discharged from [facility] about a month ago. denies any fevers. states that patient's heart rate went up as night, but came back down. TRAVEL OUTSIDE OF THE [place] IN LAST 30 DAYS: No - Related Data Allergies/Adverse Reactions: No Known Allergies Allergy (Verified 05/19/19 13:23) Home Medications: Clonazepam, Gabapentin, Hydroxizine, Praoxitine, Midodrine, Tylenol, Trazodone, Budesonide, Duoneb Past Medical History - Social History Smoking Status: Unknown if Ever Smoked Family History: Reviewed & Not Pertinent - Past Medical History Cardiac Medical History: Reports: Hx Hypertension - norvasc prescribed, pt states doesn't take Pulmonary Medical History: Reports: Hx COPD, Hx Pneumonia Musculoskeletal Medical History: Reports Hx Arthritis - knees, Reports Hx Musculoskeletal Deformity Psychiatric Medical History: Denies: Hx Depression Past Surgical History: Reports: Hx Orthopedic Surgery - Lateral knee replacement - Immunizations Immunizations up to date: Yes Hx Diphtheria, Pertussis, Tetanus Vaccination: No Review of Systems - Review of Systems -: Yes ROS unobtainable due to patient's medical condition - See HPI from . Physical Exam - Vital signs Vitals: Temp Pulse Resp BP Pulse Ox 97.8 F 89 16 160/86 H 100 12/07/19 07:37 12/07/19 07:37 12/07/19 07:37 12/07/19 07:37 12/07/19 07:37 - Notes Notes: PHYSICAL EXAMINATION: GENERAL: Chronically ill, cachectic. HEAD: Normocephalic, atraumatic. EYES: PERRL, conjunctiva normal, all extraocular movements intact, sclera nonicteric ENT: Moist mucous membranes. NECK: Tracheostomy in place. LUNGS: Equal breath sounds bilaterally and clear to auscultation. No wheezes rales or rhonchi. CARDIOVASCULAR: S1-S2, regular rate, regular rhythm. Radial pulses 2+, normal. ABDOMEN: Normoactive bowel sounds. Soft, nontender, no guarding, no rebound tenderness, and no masses palpated. EXTREMITIES: Flaccid extremities. NEUROLOGICAL: Flaccid extremities. PSYCH: Normal mood, normal affect. SKIN: Warm, dry. No rash, lesions, ulcerations noted. Normal skin turgor. Course - Re-evaluation Re-evalutation: 12/07/19 08:46 Gardner catheter will be changed. We will send urine for culture. Labs entered. Will reevaluate. Patient had a bowel movement. No abdominal tenderness. 12/07/19 12:24 Hematology shows a leukocytosis of 11,300, consistent with his urinary tract infection. Patient received Rocephin for this. Chemistries show potassium of 5.2. And calcium of 11.2, which he also received IV fluids. Vital signs do not show any signs of sepsis. Patient be started on Keflex. He will follow-up with his primary care provider. Follow-up precautions were given. Verbal discharge instructions were given to the patient. They verbalized understanding. They are stable for discharge. - Vital Signs Vital signs: Temp Pulse Resp BP Pulse Ox 97.8 F 89 16 160/86 H 100 12/07/19 07:37 12/07/19 07:37 12/07/19 07:37 12/07/19 07:37 12/07/19 07:37 - Laboratory Result Diagrams: 12/07/19 09:44 12/07/19 09:44 Laboratory results interpreted by me: 12/07/19 12/07/19 12/07/19 09:44 09:44 10:10 WBC 11.3 H RBC 4.30 L Hgb 11.6 L Hct 36.3 L MCH 26.9 L MCHC 31.9 L RDW 16.1 H Absolute Neuts (auto) 8.7 H Potassium 5.2 H Chloride 94 L Carbon Dioxide 35 H BUN 21 H Creatinine 0.20 L Glucose 143 H Calcium 11.2 H ALT 71 H Alkaline Phosphatase 142 H Total Protein 8.4 H Urine Protein 100 H Urine Blood LARGE H Ur Leukocyte Esterase MODERATE H Urine Ascorbic Acid 40 H Discharge - Discharge Clinical Impression: Urinary tract infection Qualifiers: Urinary tract infection type: catheter-associated UTI Indwelling urinary catheter type: indwelling urethral catheter Encounter type: initial encounter Qualified Code(s): T83.511A - Infection and inflammatory reaction due to indwelling urethral catheter, initial encounter Condition: Stable Disposition: HOME, SELF-CARE Instructions: Urinary Tract Infection ([facility]) Additional Instructions: Your was seen today in the emergency department for blood in his Gardner catheter. He has a urinary tract infection. Please start his antibiotics at home. He received a dose here in the emergency department. Follow-up with his primary care provider in the next 3 to 5 days. The blood in his urine should clear as a infection clears. Prescriptions: Cephalexin Monohydrate [Keflex 500 mg Capsule] 500 mg PO Q6H 7 Days #28 capsule Referrals: [facility] [Primary Care Provider] - Follow up in 1 week
[2019-12-07 10:03] LABS: ABSOLUTE BASOPHILS # (AUTO) 0.1 10^3/uL (0.0-0.2); ABSOLUTE LYMPHOCYTES (AUTO) 1.6 10^3/uL (0.5-4.7); ABSOLUTE MONOCYTES (AUTO) 0.9 10^3/uL (0.1-1.4); ABSOLUTE NEUT (AUTO) 8.7 10^3/uL (1.7-8.2); BASOPHILS % (AUTO) 0.5 % (0-2); EOSINOPHILS % (AUTO) 0.3 % (0-6); HEMATOCRIT 36.3 % (37.9-51.0); HEMOGLOBIN 11.6 g/dL (13.5-17.0); LYMPHOCYTES % (AUTO) 13.9 % (13-45); MEAN CORPUSCULAR HEMOGLOBIN 26.9 pg (27.0-33.4); MEAN CORPUSCULAR HGB CONC 31.9 g/dL (32.0-36.0); MEAN CORPUSCULAR VOLUME 84 fl (80-97); MONOCYTES % (AUTO) 7.8 % (3-13); PLATELET COUNT 357 10^3/uL (150-450); RED CELL DISTRIBUTION WIDTH 16.1 % (11.5-14.0); SEGMENTED NEUTROPHILS % (AUTO) 77.5 % (42-78); TOTAL CELLS COUNTED % (AUTO) 100 %; WHITE BLOOD COUNT 11.3 10^3/uL (4.0-10.5)
[2019-12-07 10:24] LABS: ALBUMIN 4.5 g/dL (3.5-5.0); ALKALINE PHOSPHATASE 142 U/L (38-126); ANION GAP 9 (5-19); ASPARTATE AMINO TRANSFERASE 56 U/L (17-59); BILIRUBIN,DIRECT 0.3 mg/dL (0.0-0.4); BILIRUBIN,TOTAL 0.7 mg/dL (0.2-1.3); BLOOD UREA NITROGEN 21 mg/dL (7-20); CALCIUM 11.2 mg/dL (8.4-10.2); CARBON DIOXIDE 35 mmol/L (22-30); CHLORIDE 94 mmol/L (98-107); GLUCOSE 143 mg/dL (75-110); POTASSIUM 5.2 mmol/L (3.6-5.0); TOTAL PROTEIN 8.4 g/dL (6.3-8.2)
[2019-12-07] MEDS ORDERED: ACETAMINOPHEN SOLN 325 MG/10.15 ML UDCUP PEG ONE (10:24)
[2019-12-07 10:33] LABS: APPEARANCE,URINE SLIGHTLY-CLOUDY; BILIRUBIN,URINE NEGATIVE (NEGATIVE); GLUCOSE, URINE NEGATIVE (NEGATIVE); KETONES,URINE NEGATIVE (NEGATIVE); LEUKOCYTE ESTERASE,URINE MODERATE (NEGATIVE); NITRITE,URINE NEGATIVE (NEGATIVE); PROTEIN,URINE 100 mg/dL (NEGATIVE); URINE SPECIFIC GRAVITY 1.018; UROBILINOGEN,URINE NEGATIVE mg/dL (<2.0)
[2019-12-07 10:34] LABS: COLOR,URINE RED
[2019-12-07] MEDS ORDERED: CEFTRIAXONE INJ 1000 MG VIAL IV ONE (11:09)
[2019-12-07] MEDS ORDERED: NORMAL SALINE 1000 ML 1,000 ML IV ONE (11:11)
[2019-12-07 16:36] VITALS: BP 163/84
== END 2019-12-07 16:37 | disposition home or self-care (01) ==
LOC: ER 07:09
DX: T83.511A Infection and inflammatory reaction due to indwelling urethral catheter, initial encounter (principal); N39.0 Urinary tract infection, site not specified; R31.9 Hematuria, unspecified; Y84.6 Urinary catheterization as the cause of abnormal reaction of the patient, or of later complication, without mention of misadventure at the time of the procedure; I10 Essential (primary) hypertension; J44.9 Chronic obstructive pulmonary disease, unspecified; G12.21 Amyotrophic lateral sclerosis; Z79.899 Other long term (current) drug therapy; Z99.11 Dependence on respirator [ventilator] status
CPT/HCPCS: 99284; 96361; 51702; 96365; 36415; 87086; 85025; 80053; 81001; J0696; J7030; J3490

== ENCOUNTER 2019-12-10 09:08 | Emergency (ER) | payer OTHER, MEDICARE, BC ==
[2019-12-10 11:24] LABS: ABSOLUTE EOSINOPHILS # (AUTO) 0.1 10^3/uL (0.0-0.6); ABSOLUTE LYMPHOCYTES (AUTO) 1.3 10^3/uL (0.5-4.7); ABSOLUTE MONOCYTES (AUTO) 0.8 10^3/uL (0.1-1.4); ABSOLUTE NEUT (AUTO) 6.7 10^3/uL (1.7-8.2); BASOPHILS % (AUTO) 0.3 % (0-2); EOSINOPHILS % (AUTO) 0.6 % (0-6); HEMOGLOBIN 13.4 g/dL (13.5-17.0); MEAN CORPUSCULAR HGB CONC 31.2 g/dL (32.0-36.0); MEAN CORPUSCULAR VOLUME 87 fl (80-97); MONOCYTES % (AUTO) 9.4 % (3-13); PLATELET COUNT 245 10^3/uL (150-450); RED BLOOD COUNT 4.97 10^6/uL (4.35-5.55); RED CELL DISTRIBUTION WIDTH 16.1 % (11.5-14.0); SEGMENTED NEUTROPHILS % (AUTO) 74.7 % (42-78); TOTAL CELLS COUNTED % (AUTO) 100 %
[2019-12-10 11:45] LABS: ANION GAP 12 (5-19); BLOOD UREA NITROGEN 21 mg/dL (7-20); CALCIUM 10.5 mg/dL (8.4-10.2); CARBON DIOXIDE 34 mmol/L (22-30); CHLORIDE 88 mmol/L (98-107); GLUCOSE 95 mg/dL (75-110); POTASSIUM 5.7 mmol/L (3.6-5.0)
--- NOTE | 2019-12-10 11:53 | RADIOLOGY REPORT (SQ) ---
EXAM DESCRIPTION: CT HEAD WITHOUT IMAGES COMPLETED DATE/TIME: 12/10/2019 10:34 am REASON FOR STUDY: headache. COMPARISON: 06/11/2019. TECHNIQUE: Axial images acquired through the brain without intravenous contrast. Images reviewed wi th bone, brain and subdural windows. Additional sagittal and coronal reconstructions were generated. Images stored on PACS. All CT scanners at this facility use dose modulation, iterative reconstruction, and/or weight based d osing when appropriate to reduce radiation dose to as low as reasonably achievable (ALARA). [facility]: Dose Right [facility]: CareDose [facility]: Dose Right [facility]: Teradose 4D [facility]: Smart [employer] RADIATION DOSE: CT Rad equipment meets quality standard of care and radiation dose reduction techniq ues were employed. CTDIvol: 53.2 mGy. DLP: 1070 mGy-cm. mGy. LIMITATIONS: None. FINDINGS: VENTRICLES: Normal size and contour. CEREBRUM: No masses. No hemorrhage. No midline shift. No evidence for acute infarction. Normal gra y/white matter differentiation. No areas of low density in the white matter. CEREBELLUM: No masses. No hemorrhage. No alteration of density. No evidence for acute infarction. EXTRAAXIAL SPACES: No fluid collections. No masses. ORBITS AND GLOBE: No intra- or extraconal masses. Normal contour of globe without masses. CALVARIUM: No fracture. PARANASAL SINUSES: No fluid or mucosal thickening. SOFT TISSUES: No mass or hematoma. OTHER: No other significant finding. IMPRESSION: NO ACUTE INTRACRANIAL IMAGING FINDINGS. EVIDENCE OF ACUTE STROKE: NO. COMMENT: Quality ID # [id number]: Final reports with documentation of one or more dose reduction techniques (e.g., Automated exposure control, adjustment of the mA and/or kV according to patient size, use of iterative reconstruction technique) TECHNICAL DOCUMENTATION: JOB ID: [id number] 2010 [employer]- All Rights Reserved Reading location - IP/workstation name: [email or web address]
[2019-12-10 13:26] LABS: BLOOD UREA NITROGEN 20 mg/dL (7-20); CALCIUM 10.6 mg/dL (8.4-10.2); GLUCOSE 129 mg/dL (75-110)
[2019-12-10 13:37] LABS: ANION GAP 10 (5-19); CARBON DIOXIDE 38 mmol/L (22-30); CHLORIDE 86 mmol/L (98-107)
--- NOTE | 2019-12-10 13:57 | ER Document Report ---
ED General - General Chief Complaint: High Blood Pressure Stated Complaint: BLOOD PRESSURE PROBLEM Time Seen by Provider: 12/10/19 09:19 Primary Care Provider: [facility] [Primary Care Provider] - Follow up as needed Mode of Arrival: Medic Information source: Patient, Relative TRAVEL OUTSIDE OF THE [place] IN LAST 30 DAYS: No - HPI Notes: Patient presents with a complaint of elevated blood pressure. Patient was brought in by medic. Patient has ALS so it makes it difficult for him to communicate. He was able to communicate somewhat by blinking his eyes as well as his also related some of the history. The states that he has been having trouble with low blood pressure so has been placed on Midrin however his blood pressure the last 24 to 48 hours has been elevated and he has had a headache. Therefore his home health nurse recommend that he come to the emergency department for evaluation. There have been no other significant pains. There is been no vomiting or diarrhea. No significant altered mental status. No other known symptoms. Patient is unable to describe the headache to me. Is unknown the exact location of the headache. It appears to be intermittent. He denied pain when he was in the emergency department to me. He did display blinking his eyes twice when I asked him to blink twice if he had no pain. - Related Data Allergies/Adverse Reactions: No Known Allergies Allergy (Verified 05/19/19 13:23) Home Medications: Acetaminophen, B Complex, Bidacodyl, Bedesonide, Chlorhexidine, Clonazepam, Ferrous Sulfate, Fluticasone, Gabapentin, Hydroxyzine, Ipratropium albuterol, Mag Oxide, Midodrine, Naloxone, Oxycodone, P araxetine, Polyethylene, Riluzole, Senna Docusate, Trazadone Past Medical History - General Information source: Patient, Relative - Social History Smoking Status: Former Smoker Frequency of alcohol use: None Drug Abuse: None Family History: Reviewed & Not Pertinent - Past Medical History Cardiac Medical History: Reports: Hx Hypertension - norvasc prescribed, pt states doesn't take Pulmonary Medical History: Reports: Hx COPD, Hx Pneumonia Musculoskeletal Medical History: Reports Hx Arthritis - knees, Reports Hx Musculoskeletal Deformity Psychiatric Medical History: Denies: Hx Depression Past Surgical History: Reports: Hx Orthopedic Surgery - Lateral knee replacement - Immunizations Immunizations up to date: Yes Hx Diphtheria, Pertussis, Tetanus Vaccination: No Review of Systems - Review of Systems Constitutional: denies: Chills, Fever Cardiovascular: denies: Chest pain Respiratory: denies: Cough, Short of breath Gastrointestinal: denies: Vomiting -: Yes All other systems reviewed and negative Physical Exam - Vital signs Vitals: Resp Pulse Ox 13 100 12/10/19 09:25 12/10/19 09:25 Interpretation: Hypertensive - General General appearance: Appears well, Alert In distress: None - HEENT Head: Normocephalic, Atraumatic Eyes: Normal Pupils: PERRL - Respiratory Respiratory status: No respiratory distress Chest status: Nontender Breath sounds: Decreased air movement Chest palpation: Normal - Cardiovascular Rhythm: Regular Heart sounds: Normal auscultation Murmur: No - Abdominal Inspection: Other - G-tube in place Distension: No distension Tenderness: Nontender Organomegaly: No organomegaly - Back Back: Normal, Nontender - Extremities General upper extremity: Normal inspection, Nontender, Normal color, Normal temperature General lower extremity: Normal inspection, Nontender, Normal color, Normal temperature - Neurological Additional motor exam normals: Other - Patient appears at baseline neurologically. He has essentially no movement of the extremities. He can blink his eyes in response to questions and he can also try to voice concerns however his speech is not understandable. - Psychological Associated symptoms: Depressed, Flat affect - Skin Skin Temperature: Warm Skin Moisture: Dry Skin Color: Normal Course - Re-evaluation Re-evalutation: 12/10/19 13:58 Patient is sent by home health nurse for elevated blood pressure. Patient usually has low blood pressure and is on medicines to keep this elevated. The states that she has been told to stop those medicines and that is appropriate. His blood pressure here has been essentially normal to slightly high throughout the course and has not required treatment. There is no evidence of stroke. Head CT is unremarkable. Labs are essentially unremarkable except for an elevated potassium however the tech who jennifer the blood felt that this may have been hemolyzed. Therefore the potassium was redrawn and was improved. I will recommend that he has another potassium rechecked in the next 2 to 3 days by his primary care physician. He is not on any medications that I can see that would elevate potassium. He also has no evidence of any renal issues that would elevate his potassium. - Vital Signs Vital signs: Temp Pulse Resp BP Pulse Ox 98 16 158/89 H 99 12/10/19 09:47 12/10/19 11:00 12/10/19 10:00 12/10/19 11:00 - Laboratory Result Diagrams: 12/10/19 11:10 12/10/19 12:45 Laboratory results interpreted by me: 12/10/19 12/10/19 12/10/19 11:10 11:10 12:45 Hgb 13.4 L MCHC 31.2 L RDW 16.1 H Sodium 133.5 L 134.1 L Potassium 5.7 H Chloride 88 L 86 L Carbon Dioxide 34 H 38 H BUN 21 H Creatinine < 0.15 L 0.16 L Glucose 129 H Calcium 10.5 H 10.6 H - Diagnostic Test Radiology reviewed: Image reviewed, Reports reviewed Discharge - Discharge Clinical Impression: ALS (amyotrophic lateral sclerosis) Hypertension Qualifiers: Hypertension type: unspecified Qualified Code(s): I10 - Essential (primary) hypertension Condition: Stable Disposition: HOME, SELF-CARE Instructions: High Blood Pressure ([facility]) Additional Instructions: Please have potassium and blood pressure rechecked by primary care doctor in next two to three days. Please do not take Midodrine until you speak with your primary care doctor. Referrals: [facility] [Primary Care Provider] - 12/12/19
[2019-12-10] MEDS ORDERED: CLONAZEPAM 1 MG TABLET PO ONE (14:05)
[2019-12-10] MEDS ORDERED: MORPHINE SULFATE IR 15 MG TABLET PO ONE (14:07)
[2019-12-10 19:49] VITALS: BP 157/96
== END 2019-12-10 19:40 | disposition home or self-care (01) ==
LOC: ER 09:08
DX: G12.21 Amyotrophic lateral sclerosis (principal); I10 Essential (primary) hypertension
CPT/HCPCS: 36415; 70450; 80048; 85025; 99284

== ENCOUNTER 2020-01-30 15:45 | Inpatient (IN) | payer OTHER, MEDICARE, BC ==
[2020-01-30] MEDS ORDERED: NORMAL SALINE 1000 ML 1,000 ML IV ONE (16:32)
--- NOTE | 2020-01-30 16:49 | ER Document Report ---
Entered by OSCAR CALDERON SCRIBE 01/30/20 [id number] Acting as scribe for:LAURA RAMOS MD ED General - General Chief Complaint: Altered Mental Status Stated Complaint: ALTERED MENTAL STATUS Time Seen by Provider: 01/30/20 16:07 Mode of Arrival: Medic Cannot obtain history due to: Altered mental status Notes: This 64 year old male patient with amyotrophic lateral sclerosis on a home ventilator at baseline presents today with altered mental status. Warehouse Trainer at bedside reports that the patient was at his baseline today, stating that they were talking about "Juve Brito and his popped lung" and during this conversation at 2:45 PM his eyes rolled in the back of his head and he became altered less responsive. Patient is unable to provide any information so history is limited. Patient has a Gardner catheter. He is on Keflex daily for UTI prophylaxis which is on hold for the last 3 days. He was started on Levaquin 2 days ago for upper respiratory tract infection. TRAVEL OUTSIDE OF THE [place] IN LAST 30 DAYS: No - Related Data Allergies/Adverse Reactions: acetylcysteine [From Mucomyst] Adverse Reaction (Verified 01/30/20 19:16) Past Medical History - General Information source: Outside Facility Records - color checker roving or yarn at bedside Cannot obtain history due to: Altered mental status - Social History Smoking Status: Unknown if Ever Smoked Family History: Reviewed & Not Pertinent - Past Medical History Cardiac Medical History: Reports: Hx Hypertension Pulmonary Medical History: Reports: Hx COPD, Hx Pneumonia Neurological Medical History: Reports: Other - ALS Musculoskeletal Medical History: Reports Hx Arthritis - knees, Reports Hx Musculoskeletal Deformity Past Surgical History: Reports: Hx Orthopedic Surgery - Lateral knee replacement, Other - Trach - Immunizations Immunizations up to date: Yes Hx Diphtheria, Pertussis, Tetanus Vaccination: No Review of Systems - Review of Systems -: Yes ROS unobtainable due to patient's medical condition Physical Exam - Vital signs Vitals: Pulse Resp BP Pulse Ox 68 12 79/60 L 100 01/30/20 16:00 01/30/20 16:00 01/30/20 16:00 01/30/20 16:00 - General General appearance: Alert - HEENT Head: Normocephalic, Atraumatic Eyes: Pale conjunctiva - Respiratory Respiratory status: Other - Patient is on a ventilator via his tracheostomy tube. He has no respiratory effort on his own due to his ALS. Chest status: Nontender Breath sounds: Other - No wheezes or rhonchi heard on ventilations. - Cardiovascular Rhythm: Regular Heart sounds: Normal auscultation Murmur: No - Abdominal Inspection: Normal Distension: No distension - Rectal Notes: Digital rectal exam shows good sphincter tone. There is the appearance of an acholic type stool. It did test a very trace positive on stool Hemoccult. - Extremities Notes: ALS-no extremity movement at baseline - Skin Skin Temperature: Warm Skin Moisture: Dry Skin Color: Normal Course - Re-evaluation Re-evalutation: 01/30/20 18:35 The family reports the patient had a hemoglobin of 8.5 on 01/20/2020. Today it was 7.8, and on repeat was 7.0. Stool Hemoccult is trace positive. 01/30/20 18:42 The patient's initial blood pressure was 79/60, it eventually came up to 124/60 1:09 liter of normal saline IV. - Vital Signs Vital signs: Temp Pulse Resp BP Pulse Ox 98.1 F 64 16 180/94 H 100 01/31/20 02:21 01/31/20 10:08 01/31/20 10:08 01/31/20 08:00 01/31/20 10:08 - Laboratory Results Result Diagrams: 01/31/20 02:45 01/31/20 11:25 Laboratory Results Interpreted: 01/30/20 01/30/20 01/30/20 15:30 16:10 16:50 WBC RBC 2.78 L Hgb 7.8 L Hct 23.9 L MCHC RDW 16.3 H Lymph % (Auto) Absolute Neuts (auto) Seg Neutrophils % D-Dimer > 20.00 H* VBG pCO2 68.2 H* VBG HCO3 37.6 H Sodium Potassium Chloride Carbon Dioxide BUN Creatinine Ferritin Albumin Urine Protein Ur Leukocyte Esterase Urine Ascorbic Acid Crossmatch 01/30/20 01/30/20 01/30/20 16:50 17:30 17:30 WBC 12.7 H RBC 2.58 L Hgb 7.0 L Hct 22.1 L MCHC 31.7 L RDW 16.2 H Lymph % (Auto) 9.7 L Absolute Neuts (auto) 10.0 H Seg Neutrophils % 78.9 H D-Dimer VBG pCO2 VBG HCO3 Sodium 129.2 L Potassium 5.8 H Chloride 86 L Carbon Dioxide 38 H BUN 27 H Creatinine < 0.15 L Ferritin 496.00 H Albumin 3.3 L Urine Protein 30 H Ur Leukocyte Esterase LARGE H Urine Ascorbic Acid 40 H Crossmatch 01/30/20 01/31/20 17:30 02:45 WBC 13.7 H RBC 3.52 L Hgb 9.9 L D Hct 30.4 L MCHC RDW 15.9 H Lymph % (Auto) 9.9 L Absolute Neuts (auto) 11.1 H Seg Neutrophils % 81.2 H D-Dimer VBG pCO2 VBG HCO3 Sodium Potassium Chloride Carbon Dioxide BUN Creatinine Ferritin Albumin Urine Protein Ur Leukocyte Esterase Urine Ascorbic Acid Crossmatch See Detail Critical Laboratory Results Reviewed: Yes Attending or Supervising Physician who Reviewed Labs: LAURA RAMOS - Anemia, elevated D-dimer - Radiology Results Critical Radiology Results Reviewed: No Critical Results - Chest x-ray shows stable chronic changes without focal consolidation. - EKG Interpretation by Tx EKG shows normal: Sinus rhythm, Brewer, Intervals, QRS Complexes. abnormal: ST-T Waves - ST elevation suggests pericarditis Rate: Normal - 80 Rhythm: NSR When compared to previous EKG there are: Changes noted - Consults Dr. Landa Time consulted: 19:30 Consulted provider: other - Request to be called back after patient has received blood and his vital signs have stabilized. Otherwise call the parts order and stock clerk. - Transfer of Care Care transferred to following provider: Dr. Edgar Notes: 01/30/20 20:55 Patient's history physical and past and previous lab work was reviewed. Consultation with hospitalist and his request was reviewed. Discharge - Discharge Clinical Impression: Heme positive stool, Dehydration, Hyperkalemia, Hyponatremia, ALS (amyotrophic lateral sclerosis) Hypotension Qualifiers: Hypotension type: unspecified hypotension type Qualified Code(s): I95.9 - Hypotension, unspecified Anemia Qualifiers: Anemia type: unspecified type Qualified Code(s): D64.9 - Anemia, unspecified Altered mental status Qualifiers: Altered mental status type: transient alteration of awareness Qualified Code(s): R40.4 - Transient alteration of awareness Urinary tract infectious disease Qualifiers: Urinary tract infection type: catheter-associated UTI Indwelling urinary catheter type: indwelling urethral catheter Encounter type: initial encounter Qualified Code(s): T83.511A - Infection and inflammatory reaction due to indwelling urethral catheter, initial encounter Condition: Fair Disposition: ADMITTED INPATIENT Admitting Provider: [facility] Admitted: WADE I personally performed the services described in the documentation, reviewed and edited the documentation which was dictated to the scribe in my presence, and it accurately records my words and actions.
[2020-01-30 16:53] LABS: ABSOLUTE BASOPHILS # (AUTO) 0.1 10^3/uL (0.0-0.2); ABSOLUTE EOSINOPHILS # (AUTO) 0.2 10^3/uL (0.0-0.6); ABSOLUTE LYMPHOCYTES (AUTO) 1.5 10^3/uL (0.5-4.7); ABSOLUTE MONOCYTES (AUTO) 0.9 10^3/uL (0.1-1.4); ABSOLUTE NEUT (AUTO) 6.5 10^3/uL (1.7-8.2); BASOPHILS % (AUTO) 0.7 % (0-2); EOSINOPHILS % (AUTO) 1.9 % (0-6); HEMATOCRIT 23.9 % (37.9-51.0); LYMPHOCYTES % (AUTO) 16.8 % (13-45); MEAN CORPUSCULAR HEMOGLOBIN 27.9 pg (27.0-33.4); MEAN CORPUSCULAR HGB CONC 32.4 g/dL (32.0-36.0); MEAN CORPUSCULAR VOLUME 86 fl (80-97); MONOCYTES % (AUTO) 10.1 % (3-13); PLATELET COUNT 299 10^3/uL (150-450); RED BLOOD COUNT 2.78 10^6/uL (4.35-5.55); RED CELL DISTRIBUTION WIDTH 16.3 % (11.5-14.0); SEGMENTED NEUTROPHILS % (AUTO) 70.5 % (42-78); TOTAL CELLS COUNTED % (AUTO) 100 %; WHITE BLOOD COUNT 9.2 10^3/uL (4.0-10.5)
[2020-01-30 17:02] LABS: HEMOGLOBIN 7.8 g/dL (13.5-17.0)
--- NOTE | 2020-01-30 17:03 | RADIOLOGY REPORT (SQ) ---
EXAM DESCRIPTION: CHEST SINGLE VIEW IMAGES COMPLETED DATE/TIME: 01/30/2020 4:51 pm REASON FOR STUDY: Hypotension, home ventilator COMPARISON: 06/13/2019 EXAM PARAMETERS: NUMBER OF VIEWS: One view. TECHNIQUE: Single frontal radiographic view of the chest acquired. RADIATION DOSE: NA LIMITATIONS: None. FINDINGS: LUNGS AND PLEURA: Ill-defined mild bibasilar opacities, similar to priors. No dense conso lidation. No large effusion. No pneumothorax. MEDIASTINUM AND HILAR STRUCTURES: No masses. Contour normal. HEART AND VASCULAR STRUCTURES: Heart normal in size. Normal vasculature. BONES: No acute findings. HARDWARE: Partially visualize tracheostomy tube. OTHER: No other significant finding. IMPRESSION: Stable chronic changes without focal consolidation or other evidence of acute intrathora cic process. TECHNICAL DOCUMENTATION: JOB ID: [id number] [employer]- All Rights Reserved Reading location - IP/workstation name: [email or web address]
[2020-01-30 17:27] LABS: VENOUS BLOOD BASE EXCESS 10.4 mmol/L; VENOUS BLOOD HCO3 37.6 mmol/L (20-32); VENOUS BLOOD PH 7.36 (7.30-7.42)
[2020-01-30 17:30] LABS: VENOUS BLOOD PCO2 68.2 mmHg (35-63)
[2020-01-30] MEDS ORDERED: IPRATROPIUM/ALBUTEROL 0.5-2.5 MG/3 ML AMPUL NEB ONE (17:33)
[2020-01-30 17:35] LABS: ALBUMIN 3.3 g/dL (3.5-5.0); ALKALINE PHOSPHATASE 88 U/L (38-126); ASPARTATE AMINO TRANSFERASE 35 U/L (17-59); BILIRUBIN,DIRECT 0.1 mg/dL (0.0-0.4); BILIRUBIN,TOTAL 0.5 mg/dL (0.2-1.3); BLOOD UREA NITROGEN 27 mg/dL (7-20); C-REACTIVE PROTEIN 7.2 mg/L (<10.0); CALCIUM 9.9 mg/dL (8.4-10.2); CHLORIDE 86 mmol/L (98-107); CREATINE KINASE 68 U/L (55-170); GLUCOSE 87 mg/dL (75-110); POTASSIUM 5.8 mmol/L (3.6-5.0)
[2020-01-30 17:38] LABS: ANION GAP 5 (5-19); CARBON DIOXIDE 38 mmol/L (22-30)
[2020-01-30 18:03] LABS: ABSOLUTE BASOPHILS # (AUTO) 0.1 10^3/uL (0.0-0.2); ABSOLUTE EOSINOPHILS # (AUTO) 0.2 10^3/uL (0.0-0.6); ABSOLUTE LYMPHOCYTES (AUTO) 1.2 10^3/uL (0.5-4.7); ABSOLUTE MONOCYTES (AUTO) 1.2 10^3/uL (0.1-1.4); BASOPHILS % (AUTO) 0.5 % (0-2); EOSINOPHILS % (AUTO) 1.4 % (0-6); HEMATOCRIT 22.1 % (37.9-51.0); LYMPHOCYTES % (AUTO) 9.7 % (13-45); MEAN CORPUSCULAR HEMOGLOBIN 27.1 pg (27.0-33.4); MEAN CORPUSCULAR HGB CONC 31.7 g/dL (32.0-36.0); MEAN CORPUSCULAR VOLUME 86 fl (80-97); MONOCYTES % (AUTO) 9.5 % (3-13); PLATELET COUNT 294 10^3/uL (150-450); RED BLOOD COUNT 2.58 10^6/uL (4.35-5.55); RED CELL DISTRIBUTION WIDTH 16.2 % (11.5-14.0); SEGMENTED NEUTROPHILS % (AUTO) 78.9 % (42-78); TOTAL CELLS COUNTED % (AUTO) 100 %; WHITE BLOOD COUNT 12.7 10^3/uL (4.0-10.5)
[2020-01-30 18:07] LABS: APPEARANCE,URINE CLOUDY; BILIRUBIN,URINE NEGATIVE (NEGATIVE); COLOR,URINE AMBER; GLUCOSE, URINE NEGATIVE (NEGATIVE); KETONES,URINE NEGATIVE (NEGATIVE); LEUKOCYTE ESTERASE,URINE LARGE (NEGATIVE); NITRITE,URINE NEGATIVE (NEGATIVE); PROTEIN,URINE 30 mg/dL (NEGATIVE); URINE SPECIFIC GRAVITY 1.018; UROBILINOGEN,URINE NEGATIVE mg/dL (<2.0)
[2020-01-30] MEDS ORDERED: NORMAL SALINE 250 ML IV PRN ×2 (18:11)
[2020-01-30 18:46] LABS: PROTHROMBIN TIME 12.3 SEC (11.4-15.4)
[2020-01-30] MEDS ORDERED: MORPHINE SULFATE 10 MG/5 ML ORAL SOLUTION UDCUP PEG ONE (19:54)
[2020-01-30] MEDS ORDERED: DIPHENHYDRAMINE HCL 25 MG/10 ML UDC PEG ONE (19:54)
[2020-01-30] MEDS ORDERED: ACETAMINOPHEN SUSP 160 MG/5 ML ORAL SYRING PEG ONE (19:55)
[2020-01-30] MEDS ORDERED: CLONAZEPAM 1 MG TABLET PEG ONE (19:57)
[2020-01-30] MEDS ORDERED: GABAPENTIN 300 MG CAPSULE PEG ONE (19:57)
[2020-01-30] MEDS ORDERED: BUDESONIDE NEB 0.5 MG/2 ML AMPUL NEB ONE (22:00)
[2020-01-31 04:02] LABS: ABSOLUTE BASOPHILS # (AUTO) 0.1 10^3/uL (0.0-0.2); ABSOLUTE EOSINOPHILS # (AUTO) 0.2 10^3/uL (0.0-0.6); ABSOLUTE LYMPHOCYTES (AUTO) 1.4 10^3/uL (0.5-4.7); ABSOLUTE NEUT (AUTO) 11.1 10^3/uL (1.7-8.2); BASOPHILS % (AUTO) 0.4 % (0-2); EOSINOPHILS % (AUTO) 1.1 % (0-6); HEMATOCRIT 30.4 % (37.9-51.0); LYMPHOCYTES % (AUTO) 9.9 % (13-45); MEAN CORPUSCULAR HEMOGLOBIN 28.2 pg (27.0-33.4); MEAN CORPUSCULAR HGB CONC 32.7 g/dL (32.0-36.0); MEAN CORPUSCULAR VOLUME 86 fl (80-97); MONOCYTES % (AUTO) 7.4 % (3-13); PLATELET COUNT 320 10^3/uL (150-450); RED BLOOD COUNT 3.52 10^6/uL (4.35-5.55); RED CELL DISTRIBUTION WIDTH 15.9 % (11.5-14.0); SEGMENTED NEUTROPHILS % (AUTO) 81.2 % (42-78); TOTAL CELLS COUNTED % (AUTO) 100 %; WHITE BLOOD COUNT 13.7 10^3/uL (4.0-10.5)
[2020-01-31 04:03] LABS: HEMOGLOBIN 9.9 g/dL (13.5-17.0)
--- NOTE | 2020-01-31 05:57 | RADIOLOGY REPORT (SQ) ---
EXAM DESCRIPTION: CTA CHEST RadLex: CT CHEST ANGIOGRAPHY WITHOUT THEN WITH IV CONTRAST CLINICAL HISTORY: 64 years Male; elevated d dimer; TECHNIQUE: CT angiogram of the chest using intravenous contrast. MIP reconstructions were performed. All CT scans at this facility use dose modulation, iterative reconstruction, and/or weight based dosing when appropriate to reduce radiation dose to as low as reasonably achievable. COMPARISON: None. FINDINGS: Pulmonary arteries: No filling defects in the central pulmonary arteries. Lungs: Scattered lucencies and diffuse interstitial thickening/fibrosis are consistent with emphysema. Bilateral pleural effusions measure 1.5 cm on the right and 2 cm on the left. There is posterior atelectasis in both lower lobes, worse on the right. No pneumothorax. No groundglass densities. Mediastinum: Tracheostomy is in place. No adjacent edema. No mediastinal adenopathy. Mild coronary artery calcifications. Bones: Multilevel anterior bridging osteophytes involving most of the thoracic spine, typical for DISH. No acute bone findings. Gastrostomy tube is partially visualized in the stomach. IMPRESSION: 1. Emphysema 2. Small bilateral pleural effusions with partial atelectasis of both lower lobes, worse on the right. 3. No CT evidence for pulmonary embolism
[2020-01-31] MEDS ORDERED: ACETAMINOPHEN 325 MG TABLET PEG PRN (06:12)
--- NOTE | 2020-01-31 06:24 | PDOC H&P ---
History of Present Illness Admission Date/PCP: [facility] Patient complains of: Fainting episode History of Present Illness: LEONILA HERBERT is a 64 year old male with a history of ALS diagnosed 6 months back currently on permanent mechanical ventilation through tracheostomy presented to the ED after he had an episode of passing out this afternoon while he was with caregiver. Patient is nonverbal and history is mainly from ER signout, and his . Patient's is bedside and states has been at his baseline state of in the morning but yesterday afternoon while she was with his caregiver suddenly passed out and and stayed altered from his baseline until he arrived at the emergency department. She states that occasionally he has fever and sweating he was being managed with Tylenol. On arrival at the ED patient's blood pressure was 79/60, tachycardic with heart rate in the 1 teens. His initial hemoglobin was 7.8 which dropped to 7.0 few hours later patient stool guaiac was positive. He was typed, crossmatched and was transfused was 2 units of packed RBC and he was given IV fluids after which his blood pressure came up with systolic ranging in the 130s and 140s. Patient was able to respond with facial fine and states that he is not in pain and currently is not short of breath. Past Medical History Cardiac Medical History: Reports: Hypertension Pulmonary Medical History: Reports: Chronic Obstructive Pulmonary Disease (COPD), Pneumonia Neurological Medical History: Reports: Other - ALS Musculoskeltal Medical History: Reports: Arthritis - knees Psychiatric Medical History: Denies: Depression Hematology: Reports: Anemia Denies: Sickle Cell Disease Past Surgical History Past Surgical History: Reports: Orthopedic Surgery - Lateral knee replacement, Other - Trach Social History Lives with: Family Smoking Status: Unknown if Ever Smoked Frequency of Alcohol Use: Occasional Hx Recreational Drug Use: No Hx Prescription Drug Abuse: No - Advance Directive Resuscitation Status: Full Code Family History Family History: Reviewed & Not Pertinent Parental Family History Reviewed: Yes Children Family History Reviewed: Yes Sibling(s) Family History Reviewed.: Yes Medication/Allergy Home Medications: Ferrous Sulfate [Feosol 325 mg Tablet] 325 mg PO DAILY 03/14/18 Multivitamin [Tab-A-Fabian (Multiple Vitamin) Tablet] 1 tab PO DAILY 03/14/18 Albuterol Sulfate [Albuterol Sulfate Hfa] 1 puff IH Q4HP PRN 04/29/20 Albuterol Sulfate [Ventolin 0.083% Neb 2.5 mg/3 ml Ampul] 1 vial NEB Q6HP PRN 0 06/11/19 Fluticasone/Umeclidin/Vilanter [Trelegy 100-62.5-25 Mcg Ellipta 14 Dose/Dpi] 1 puff IH DAILY 06/11/19 Megestrol Acetate 40 mg PO BID 06/11/19 Cephalexin Monohydrate [Keflex 500 mg Capsule] 500 mg PO Q6H 7 Days #28 capsule 12/07/19 Allergies/Adverse Reactions: acetylcysteine [From Mucomyst] Adverse Reaction (Verified 01/30/20 19:16) Review of Systems ROS unobtainable: Due to mental status Physical Exam Vital Signs: Temp Pulse Resp BP Pulse Ox 98.1 F 84 12 135/80 H 100 01/31/20 02:21 01/31/20 02:40 01/31/20 06:00 01/31/20 06:00 01/31/20 06:00 Intake & Output 01/29/20 01/30/20 01/31/20 06:59 06:59 06:59 Intake Total 2100 Balance 2100 Weight 63.503 kg Additional comments: GENERAL APPEARANCE: Alert and breath nonresponsive to tracheostomy in place and underlying ALS HEENT: Normocephalic and atraumatic. No scleral icterus. NECK: Supple. No JVD. Tracheostomy in place and with mechanical ventilation CHEST: Symmetric. Nontender to palpation. LUNGS: Clear with good air entry bilaterally. No wheezing or crackles HEART: Regular rate and rhythm with normal S1 and S2. No murmurs, gallops, or rubs. ABDOMEN: soft, active bowel sounds, no direct or rebound tenderness. No organomegaly detected. EXTREMITIES: No cyanosis, clubbing. Edema of bilateral upper extremities MUSCULOSKELETAL: No joint swelling or deformity noted SKIN: Stage I sacral pressure ulcers NEUROLOGIC: Difficult to perform full neurologic exam due to patient being nonverbal due to underlying ALS. Power is 0/5 in both upper and lower extremities. Has visible fasciculations. Results Laboratory Results: 01/31/20 02:45 01/30/20 16:50 01/30/20 01/30/20 01/30/20 15:30 16:10 16:50 WBC 9.2 RBC 2.78 L Hgb 7.8 L Hct 23.9 L MCV 86 MCH 27.9 MCHC 32.4 RDW 16.3 H Plt Count 299 Seg Neutrophils % 70.5 VBG pH 7.36 VBG pCO2 68.2 H* VBG HCO3 37.6 H VBG Base Excess 10.4 Sodium Cancelled Potassium Cancelled Chloride Cancelled Carbon Dioxide Cancelled Anion Gap Cancelled BUN Cancelled Creatinine Cancelled Est GFR ( Amer) Cancelled Est GFR (Non-Af Amer) Cancelled Glucose Cancelled Lactic Acid Calcium Cancelled Magnesium Cancelled Ferritin Cancelled Total Bilirubin Cancelled AST Cancelled Alkaline Phosphatase Cancelled C-Reactive Protein Cancelled Total Protein Cancelled Albumin Cancelled Urine Color Urine Appearance Urine pH Ur Specific [place] Urine Protein Urine Glucose (UA) Urine Ketones Urine Blood Urine Nitrite Ur Leukocyte Esterase Urine WBC (Auto) Urine RBC (Auto) Blood Type Antibody Screen 01/30/20 01/30/20 01/30/20 16:50 17:30 17:30 WBC 12.7 H RBC 2.58 L Hgb 7.0 L Hct 22.1 L MCV 86 MCH 27.1 MCHC 31.7 L RDW 16.2 H Plt Count 294 Seg Neutrophils % 78.9 H VBG pH VBG pCO2 VBG HCO3 VBG Base Excess Sodium 129.2 L Potassium 5.8 H Chloride 86 L Carbon Dioxide 38 H Anion Gap 5 BUN 27 H Creatinine < 0.15 L Est GFR ( Amer) > 60 Est GFR (Non-Af Amer) Glucose 87 Lactic Acid Calcium 9.9 Magnesium 1.7 Ferritin 496.00 H Total Bilirubin 0.5 AST 35 Alkaline Phosphatase 88 C-Reactive Protein 7.2 Total Protein 7.0 Albumin 3.3 L Urine Color SIMRAN Urine Appearance CLOUDY Urine pH 7.0 Ur Specific [place] 1.018 Urine Protein 30 H Urine Glucose (UA) NEGATIVE Urine Ketones NEGATIVE Urine Blood NEGATIVE Urine Nitrite NEGATIVE Ur Leukocyte Esterase LARGE H Urine WBC (Auto) 99 Urine RBC (Auto) 1 Blood Type Antibody Screen 01/30/20 01/31/20 01/31/20 17:30 02:45 02:45 WBC 13.7 H RBC 3.52 L Hgb 9.9 L D Hct 30.4 L MCV 86 MCH 28.2 MCHC 32.7 RDW 15.9 H Plt Count 320 Seg Neutrophils % 81.2 H VBG pH VBG pCO2 VBG HCO3 VBG Base Excess Sodium Potassium Chloride Carbon Dioxide Anion Gap BUN Creatinine Est GFR ( Amer) Est GFR (Non-Af Amer) Glucose Lactic Acid 1.1 Calcium Magnesium Ferritin Total Bilirubin AST Alkaline Phosphatase C-Reactive Protein Total Protein Albumin Urine Color Urine Appearance Urine pH Ur Specific [place] Urine Protein Urine Glucose (UA) Urine Ketones Urine Blood Urine Nitrite Ur Leukocyte Esterase Urine WBC (Auto) Urine RBC (Auto) Blood Type O POSITIVE Antibody Screen NEGATIVE 01/30/20 01/30/20 01/30/20 15:30 15:30 16:50 Creatine Kinase Cancelled Troponin I Cancelled < 0.012 01/30/20 16:50 Creatine Kinase 68 Troponin I Impressions: Chest X-Ray 01/30/20 16:31 IMPRESSION: Stable chronic changes without focal consolidation or other evidence of acute intrathoracic process. Assessment and Plan - Diagnosis (1) GI bleed Is this a current diagnosis for this admission?: Yes Plan: Patient presented with shock after an episode of passing out Was initially in shock at presentation Was hydrated with IV fluids at the ED Patient was also typed and crossmatched and transfused 2 units of packed RBC and his blood pressure became stable Post transfusion hemoglobin improved to 9.9 Started him on IV PPI Obtain 2 large-bore IV access Stool was positive for occult blood Surgery was consulted and recommended conservative measures and not pursuing endoscopy Closely monitor vital signs, CBC (2) Anemia requiring transfusions Is this a current diagnosis for this admission?: Yes Plan: Patient presents after an episode of passing out and he was altered from baseline on presentation Patient was hypotensive on arrival to the ED with a blood pressure of 79/60 Was hydrated and transfused which improved his blood pressure Currently appears hemodynamically stable Stool guaiac was positive at the ED We will obtain iron panel Closely monitor vital signs (3) Sepsis Is this a current diagnosis for this admission?: Yes Plan: Patient was in shock and tachycardic on presentation Which are likely to be due to hypovolemic shock from possible GI bleed Blood pressure improved after IV hydration and transfusion Likely source of infection could be UTI Lactic acid level was within the normal limits However no leukocytosis Chest x-ray showed chronic emphysematous changes but no infiltrate or consolidation was seen Currently on ceftriaxone Follow-up with blood culture Closely monitor vitals (4) Hypotension Qualifiers: Hypotension type: unspecified hypotension type Qualified Code(s): I95.9 - Hypotension, unspecified Is this a current diagnosis for this admission?: Yes Plan: Likely hypovolemic could also be due to sepsis Blood pressure has been corrected after initial hydration and blood transfusion Closely monitor vital signs Continue management of GI bleed and sepsis as stated above (5) Hyperkalemia Is this a current diagnosis for this admission?: Yes Plan: Serum potassium was 5.8 on presentation No associated EKG changes were noted Patient was hydrated with IV fluids Repeat BMP pending (6) Urinary tract infectious disease Qualifiers: Urinary tract infection type: catheter-associated UTI Indwelling urinary catheter type: indwelling urethral catheter Encounter type: initial encounter Qualified Code(s): T83.511A - Infection and inflammatory reaction due to indwelling urethral catheter, initial encounter; N39.0 - Urinary tract infection, site not specified Is this a current diagnosis for this admission?: Yes Plan: UA was positive for large leukocyte esterase and multiple WBC*high-power field Currently on ceftriaxone Follow-up with urine and blood cultures and sensitivity and adjust antibiotic accordingly (7) Hyponatremia Is this a current diagnosis for this admission?: Yes Plan: Serum sodium 129 Likely due to volume depletion Patient has been hydrated at the ER BMP ordered for this morning Closely monitor sodium levels avoid overcorrection (8) Chronic respiratory failure requiring continuous mechanical ventilation through tracheostomy Is this a current diagnosis for this admission?: Yes Plan: Patient on long-term mechanical ventilation through tracheostomy due to respiratory failure from ALS Currently saturating well on mechanical ventilation with FiO2 of 21% Continue mechanical ventilation at home settings (9) ALS (amyotrophic lateral sclerosis) Is this a current diagnosis for this admission?: Yes Plan: Continue tracheostomy care with frequent suctioning and aspiration precaution Has PEG tube for tube feeding (10) COPD (chronic obstructive pulmonary disease) Is this a current diagnosis for this admission?: Yes Plan: Currently not in acute exacerbation Continue breathing treatment with DuoNeb - Time Time Spent with patient: 35 or more minutes Total Critical Time (Minutes): 45 Medications reviewed and adjusted accordingly: Yes Anticipated Discharge Disposition: Home with Home Health Anticipated Discharge Timeframe: within 72 hours - Inpatient Certification Based on my medical assessment, after consideration of the patient's comorbidities, presenting symptoms, or acuity I expect that the services needed warrant INPATIENT care.: Yes I certify that my determination is in accordance with my understanding of Medicare's requirements for reasonable and necessary INPATIENT services [42 CFR 412.3e].: Yes Medical Necessity: Significant Comorbidiites Make Outpatient Treatment Too Risky, Need Close Monitoring Due to Risk of Patient Decompensation, Need For IV Fluids, Need For Continuous Telemetry Monitoring Post Hospital Care: D/C or Transfer Summary
[2020-01-31] MEDS: PANTOPRAZOLE SODIUM 40 MG VIAL IV SCH ×2 (06:46→22:19)
[2020-01-31] MEDS: RINGERS SOLUTION,LACTATED 1,000 ML IV PRN ×2 (06:46→18:01)
--- NOTE | 2020-01-31 07:29 | PDOC CONSULTATION ---
Consultation Consult Date: 01/31/20 Attending physician:: NICOLE HENRY Provider Consulted: MIRELA STEWART Consult reason:: Heme positive stool History of Present Illness Admission Date/PCP: 01/31/20 06:[facility] History of Present Illness: LEONILA HERBERT is a 64 year old male With a history of ALS, on ventilator via permanent tracheostomy, unable to move communicates via eye blinking, and lip movement, brought to the emergency department via ground rescue after "" passing out ". Patient was found to be anemic and transfused 2 units of blood. There has been no evidence of hemoptysis, hematemesis, or bright red blood per rectum. Patient is cared for by his at bedside he states patient has never had a GI bleed had endoscopy. Patient was transfused 2 units of blood for hemoglobin of 7.0, posttransfusion hematocrit 9.8. Surgery consulted for possible endoscopy. Past Medical History Cardiac Medical History: Reports: Hypertension Pulmonary Medical History: Reports: Chronic Obstructive Pulmonary Disease (COPD), Pneumonia Neurological Medical History: Reports: Other - ALS Musculoskeltal Medical History: Reports: Arthritis - knees Psychiatric Medical History: Denies: Depression Hematology: Reports: Anemia Denies: Sickle Cell Disease Past Surgical History Past Surgical History: Reports: Orthopedic Surgery - Lateral knee replacement, Other - Bilateral knee surgery trach Social History Information Source: Relative Lives with: Spouse/Significant other Smoking Status: Unknown if Ever Smoked Frequency of Alcohol Use: Occasional Hx Recreational Drug Use: No Hx Prescription Drug Abuse: No Family History Family History: None, Reviewed & Not Pertinent Parental Family History Reviewed: No Children Family History Reviewed: No Sibling(s) Family History Reviewed.: No Medication/Allergy Home Medications: Ferrous Sulfate [Feosol 325 mg Tablet] 325 mg PO DAILY 03/14/18 Multivitamin [Tab-A-Fabian (Multiple Vitamin) Tablet] 1 tab PO DAILY 03/14/18 Albuterol Sulfate [Albuterol Sulfate Hfa] 1 puff IH Q4HP PRN 06/11/19 Albuterol Sulfate [Ventolin 0.083% Neb 2.5 mg/3 ml Ampul] 1 vial NEB Q6HP PRN 06/11/19 Fluticasone/Umeclidin/Vilanter [Trelegy 100-62.5-25 Mcg Ellipta 14 Dose/Dpi] 1 puff IH DAILY 06/11/19 Megestrol Acetate 40 mg PO BID 06/11/19 Cephalexin Monohydrate [Keflex 500 mg Capsule] 500 mg PO Q6H 7 Days #28 capsule 12/07/19 Allergies/Adverse Reactions: acetylcysteine [From Mucomyst] Adverse Reaction (Verified 01/30/20 19:16) Review of Systems ROS unobtainable: Due to mental status, Other - Patient on ventilator, unable to indicate. Patient's health care provider at bedside states he is completely bedridden, able to communicate through eye blinking, and limited facial expressions Physical Exam Vital Signs: Temp Pulse Resp BP Pulse Ox 98.1 F 84 12 152/85 H 100 01/31/20 02:21 01/31/20 02:40 01/31/20 07:05 01/31/20 07:05 01/31/20 07:05 Intake & Output 01/30/20 01/31/20 02/01/20 06:59 06:59 06:59 Intake Total 2100 Output Total 900 Balance 2100 -900 Weight 63.503 kg General appearance: PRESENT: other - On ventilator via permanent tracheostomy Eye exam: PRESENT: other - Eye twitching in response to verbal stimulation. Mouth exam: PRESENT: other - Lip's quivering Neck exam: PRESENT: tracheostomy Respiratory exam: PRESENT: rhonchi Cardiovascular exam: PRESENT: RRR Pulses: PRESENT: normal carotid pulses, normal femoral pulses GI/Abdominal exam: PRESENT: soft Rectal exam: PRESENT: deferred Neurological exam: PRESENT: other - No motor function except for eyelids Additional comments: Indwelling Gardner catheter Results Laboratory Results: 01/31/20 02:45 01/30/20 16:50 01/30/20 01/30/20 01/30/20 15:30 16:10 16:50 WBC 9.2 RBC 2.78 L Hgb 7.8 L Hct 23.9 L MCV 86 MCH 27.9 MCHC 32.4 RDW 16.3 H Plt Count 299 Seg Neutrophils % 70.5 VBG pH 7.36 VBG pCO2 68.2 H* VBG HCO3 37.6 H VBG Base Excess 10.4 Sodium Cancelled Potassium Cancelled Chloride Cancelled Carbon Dioxide Cancelled Anion Gap Cancelled BUN Cancelled Creatinine Cancelled Est GFR ( Amer) Cancelled Est GFR (Non-Af Amer) Cancelled Glucose Cancelled Lactic Acid Calcium Cancelled Magnesium Cancelled Ferritin Cancelled Total Bilirubin Cancelled AST Cancelled Alkaline Phosphatase Cancelled C-Reactive Protein Cancelled Total Protein Cancelled Albumin Cancelled Urine Color Urine Appearance Urine pH Ur Specific [place] Urine Protein Urine Glucose (UA) Urine Ketones Urine Blood Urine Nitrite Ur Leukocyte Esterase Urine WBC (Auto) Urine RBC (Auto) Blood Type Antibody Screen 01/30/20 01/30/20 01/30/20 16:50 17:30 17:30 WBC 12.7 H RBC 2.58 L Hgb 7.0 L Hct 22.1 L MCV 86 MCH 27.1 MCHC 31.7 L RDW 16.2 H Plt Count 294 Seg Neutrophils % 78.9 H VBG pH VBG pCO2 VBG HCO3 VBG Base Excess Sodium 129.2 L Potassium 5.8 H Chloride 86 L Carbon Dioxide 38 H Anion Gap 5 BUN 27 H Creatinine < 0.15 L Est GFR ( Amer) > 60 Est GFR (Non-Af Amer) Glucose 87 Lactic Acid Calcium 9.9 Magnesium 1.7 Ferritin 496.00 H Total Bilirubin 0.5 AST 35 Alkaline Phosphatase 88 C-Reactive Protein 7.2 Total Protein 7.0 Albumin 3.3 L Urine Color SIMRAN Urine Appearance CLOUDY Urine pH 7.0 Ur Specific [place] 1.018 Urine Protein 30 H Urine Glucose (UA) NEGATIVE Urine Ketones NEGATIVE Urine Blood NEGATIVE Urine Nitrite NEGATIVE Ur Leukocyte Esterase LARGE H Urine WBC (Auto) 99 Urine RBC (Auto) 1 Blood Type Antibody Screen 01/30/20 01/31/20 01/31/20 17:30 02:45 02:45 WBC 13.7 H RBC 3.52 L Hgb 9.9 L D Hct 30.4 L MCV 86 MCH 28.2 MCHC 32.7 RDW 15.9 H Plt Count 320 Seg Neutrophils % 81.2 H VBG pH VBG pCO2 VBG HCO3 VBG Base Excess Sodium Potassium Chloride Carbon Dioxide Anion Gap BUN Creatinine Est GFR ( Amer) Est GFR (Non-Af Amer) Glucose Lactic Acid 1.1 Calcium Magnesium Ferritin Total Bilirubin AST Alkaline Phosphatase C-Reactive Protein Total Protein Albumin Urine Color Urine Appearance Urine pH Ur Specific [place] Urine Protein Urine Glucose (UA) Urine Ketones Urine Blood Urine Nitrite Ur Leukocyte Esterase Urine WBC (Auto) Urine RBC (Auto) Blood Type O POSITIVE Antibody Screen NEGATIVE 01/30/20 01/30/20 01/30/20 15:30 15:30 16:50 Creatine Kinase Cancelled Troponin I Cancelled < 0.012 01/30/20 16:50 Creatine Kinase 68 Troponin I Impressions: Chest X-Ray 01/30/20 16:31 IMPRESSION: Stable chronic changes without focal consolidation or other evidence of acute intrathoracic process. Assessment & Plan - Diagnosis (1) Heme positive stool Is this a current diagnosis for this admission?: Yes Plan: Impression: Positive stools, anemia in 64-year-old Afro-[place]alese male with ALS, and essentially no motor function, trach and vent dependent. Now status post 2 units of blood transfusion, hemodynamically stable. No clinical evidence of GI bleeding Recommendations: 1. Discussed situation with patient and Dr. Henry; I have suggested supportive therapy, and cautious observation. I have not recommended upper and lower endoscopy at this time. Patient is in agreement. 2. We will sign off; reconsult surgery if clinically indicated. (2) ALS (amyotrophic lateral sclerosis) Is this a current diagnosis for this admission?: Yes (3) Hypotension Qualifiers: Hypotension type: unspecified hypotension type Qualified Code(s): I95.9 - Hypotension, unspecified Is this a current diagnosis for this admission?: Yes (4) COPD exacerbation Is this a current diagnosis for this admission?: Yes (5) Anemia Qualifiers: Anemia type: unspecified type Qualified Code(s): D64.9 - Anemia, unspecified
[2020-01-31] MEDS ORDERED: AMLODIPINE BESYLATE 10 MG TABLET PO ONE (08:20)
[2020-01-31] MEDS: IPRATROPIUM/ALBUTEROL 0.5-2.5 MG/3 ML AMPUL NEB PRN (09:49)
[2020-01-31] MEDS ORDERED: ENOXAPARIN SODIUM INJ 40 MG/0.4 ML DISP.SYRIN SUBCUT SCH (10:00)
[2020-01-31] MEDS: CEFTRIAXONE 1 GM/D5W RTU 1 GM/50 ML RTUPB IV SCH (11:18)
[2020-01-31 12:15] LABS: ANION GAP 5 (5-19); BLOOD UREA NITROGEN 17 mg/dL (7-20); CALCIUM 10.7 mg/dL (8.4-10.2); CARBON DIOXIDE 38 mmol/L (22-30); CHLORIDE 90 mmol/L (98-107); GLUCOSE 93 mg/dL (75-110)
[2020-01-31 12:21] LABS: POTASSIUM 4.4 mmol/L (3.6-5.0)
[2020-01-31] MEDS ORDERED: MORPHINE SULFATE 10 MG/5 ML ORAL SOLUTION UDCUP PO PRN (13:36)
[2020-01-31 14:46] LABS: ABSOLUTE EOSINOPHILS # (AUTO) 0.1 10^3/uL (0.0-0.6); ABSOLUTE LYMPHOCYTES (AUTO) 1.3 10^3/uL (0.5-4.7); ABSOLUTE MONOCYTES (AUTO) 0.6 10^3/uL (0.1-1.4); ABSOLUTE NEUT (AUTO) 9.9 10^3/uL (1.7-8.2); BASOPHILS % (AUTO) 0.4 % (0-2); EOSINOPHILS % (AUTO) 0.7 % (0-6); HEMATOCRIT 33.1 % (37.9-51.0); HEMOGLOBIN 10.9 g/dL (13.5-17.0); LYMPHOCYTES % (AUTO) 10.8 % (13-45); MEAN CORPUSCULAR HEMOGLOBIN 27.9 pg (27.0-33.4); MEAN CORPUSCULAR VOLUME 84 fl (80-97); MONOCYTES % (AUTO) 5.1 % (3-13); PLATELET COUNT 310 10^3/uL (150-450); RED BLOOD COUNT 3.93 10^6/uL (4.35-5.55); RED CELL DISTRIBUTION WIDTH 15.7 % (11.5-14.0); TOTAL CELLS COUNTED % (AUTO) 100 %; WHITE BLOOD COUNT 11.9 10^3/uL (4.0-10.5)
--- NOTE | 2020-01-31 17:23 | EKG REPORT ---
SEVERITY:- ABNORMAL ECG - SINUS RHYTHM ST ELEVATION SUGGESTS PERICARDITIS : Confirmed by: Sarahi Gong MD 31-Jan-2020 17:21:58
[2020-01-31] MEDS ORDERED: RILUZOLE 50 MG PEG SCH (18:00)
[2020-01-31] MEDS ORDERED: GUAR GUM PO SCH (18:00)
[2020-01-31] MEDS: GABAPENTIN 300 MG CAPSULE PEG SCH (18:02)
[2020-01-31] MEDS: LEVOFLOXACIN 750 MG TABLET PEG SCH (18:02)
[2020-01-31] MEDS: MORPHINE SULFATE IR 15 MG TABLET PO SCH (18:02)
[2020-01-31] MEDS: DIPHENHYDRAMINE HCL 25 MG CAPSULE PEG SCH ×2 (18:03→18:07)
[2020-01-31] MEDS: CLONAZEPAM 1 MG TABLET PEG SCH (18:03)
--- NOTE | 2020-01-31 18:26 | RADIOLOGY REPORT (SQ) ---
EXAM DESCRIPTION: VENOUS BILATERAL UPPER IMAGES COMPLETED DATE/TIME: 01/31/2020 6:11 pm REASON FOR STUDY: elevated d.dimer, edema, ?DVT COMPARISON: None. TECHNIQUE: Dynamic and static hall scale and color images acquired of the right and left arm venous system. Selected spectral images acquired with additional compression and augmentation maneuvers. The contralateral subclavian vein and internal jugular vein were also imaged. Images stored on PACS. LIMITATIONS: None. FINDINGS: INTERNAL JUGULAR VEIN: Normal phasicity, compression, augmentation. No visualized echogeni c material on hall scale. No defects on color images. Comparison opposite side normal. SUBCLAVIAN VEIN: Normal compression, augmentation. No visualized echogenic material on hall scale. No defects on color images. AXILLARY VEIN: Normal compression, augmentation. No visualized echogenic material on hall scale. No d efects on color images. BRACHIAL VEIN: Normal compression, augmentation. No visualized echogenic material on hall scale. No d efects on color images. BASILIC VEIN: Normal compression, augmentation. No visualized echogenic material on hall scale. No de fects on color images. CEPHALIC VEIN: Normal compression, augmentation. No visualized echogenic material on hall scale. No d efects on color images. OTHER: No other significant finding. CONTRALATERAL SUBCLAVIAN VEIN AND INTERNAL JUGULAR VEIN: Normal phasicity, compression and augmentation. No visualized echogenic material on hall scale. No de fects on color images. IMPRESSION: NO EVIDENCE DVT OR SVT RIGHT OR LEFT ARM. TECHNICAL DOCUMENTATION: JOB ID: [id number] [employer]- All Rights Reserved Reading location - IP/workstation name: [email or web address]
[2020-01-31] MEDS ORDERED: DIPHENHYDRAMINE HCL 25 MG/10 ML UDC PEG SCH (19:00)
[2020-01-31] MEDS ORDERED: DIPHENHYDRAMINE HCL 25 MG/10 ML UDC PEG PRN (20:29)
[2020-01-31] MEDS: BUDESONIDE NEB 0.5 MG/2 ML AMPUL NEB SCH (20:56)
[2020-01-31] MEDS: TRAZODONE HCL 50 MG TABLET PEG SCH (22:19)
[2020-02-01] MEDS: RINGERS SOLUTION,LACTATED 1,000 ML IV PRN (06:16)
[2020-02-01 06:57] LABS: HEMATOCRIT 32.8 % (37.9-51.0); HEMOGLOBIN 10.6 g/dL (13.5-17.0); MEAN CORPUSCULAR HEMOGLOBIN 27.6 pg (27.0-33.4); MEAN CORPUSCULAR HGB CONC 32.4 g/dL (32.0-36.0); MEAN CORPUSCULAR VOLUME 85 fl (80-97); PLATELET COUNT 307 10^3/uL (150-450); RED BLOOD COUNT 3.86 10^6/uL (4.35-5.55); RED CELL DISTRIBUTION WIDTH 15.4 % (11.5-14.0); WHITE BLOOD COUNT 11.2 10^3/uL (4.0-10.5)
[2020-02-01 07:24] LABS: ANION GAP 8 (5-19); BLOOD UREA NITROGEN 12 mg/dL (7-20); CALCIUM 9.8 mg/dL (8.4-10.2); CARBON DIOXIDE 33 mmol/L (22-30); CHLORIDE 91 mmol/L (98-107); GLUCOSE 173 mg/dL (75-110); POTASSIUM 4.1 mmol/L (3.6-5.0)
[2020-02-01] MEDS: BUDESONIDE NEB 0.5 MG/2 ML AMPUL NEB SCH ×2 (08:48→20:31)
[2020-02-01] MEDS: PANTOPRAZOLE SODIUM 40 MG VIAL IV SCH ×2 (09:19→22:03)
[2020-02-01] MEDS: CLONAZEPAM 1 MG TABLET PEG SCH ×3 (09:19→17:05)
[2020-02-01] MEDS: MORPHINE SULFATE IR 15 MG TABLET PO SCH ×2 (09:20→17:05)
[2020-02-01] MEDS: GABAPENTIN 300 MG CAPSULE PEG SCH ×3 (09:20→17:05)
[2020-02-01] MEDS: ESCITALOPRAM OXALATE 10 MG TABLET PEG SCH (09:20)
[2020-02-01] MEDS: CEFTRIAXONE 1 GM/D5W RTU 1 GM/50 ML RTUPB IV SCH (09:21)
[2020-02-01] MEDS ORDERED: MULTIVITAMIN TABLET PO SCH (10:00)
[2020-02-01] MEDS: LEVOFLOXACIN 750 MG TABLET PEG SCH (10:17)
[2020-02-01] MEDS ORDERED: VANCOMYCIN HCL 0 MG in DEXTROSE 5%-WATER 250 ML IV NR (14:45)
--- NOTE | 2020-02-01 15:08 | PDOC PROGRESS REPORT ---
Subjective Date:: 02/01/20 Subjective:: The patient is a 64-year-old male with a past medical history of ALS with tracheostomy who is vent dependent, with hypertension, COPD, arthritis, and chronic anemia who was admitted 01/31/2020 with anemia secondary to GI bleed and sepsis presumed to be related to urinary tract infection. Patient was seen on afternoon rounds with his and private duty nurse present. He was found to be resting in bed, comfortably, on ventilator at his baseline settings. Medication is limited with his providing interpretation of facial expressions and Librium. He denies discomfort, difficulty breathing, palpitations, abdominal pain, nausea, vomiting, diarrhea. Reviewed laboratory work-up, vital signs, and culture results. Discussed recommendations that patient be placed on IV antibiotics until cultures are finalized. Patient and family agree. They have no other questions or concerns at this time. No concerns per nursing. Reason For Visit: SEVERE ANEMIA,GI BLEED,SEPSIS,UTI,HYPERKALEMIA Physical Exam Vital Signs: Temp Pulse Resp BP Pulse Ox 98.0 F 86 11 L 143/78 H 100 02/01/20 11:31 02/01/20 11:31 02/01/20 11:31 02/01/20 11:31 02/01/20 11:31 Intake & Output 01/31/20 02/01/20 02/02/20 06:59 06:59 06:59 Intake Total 2100 2230 1131 Output Total 3175 Balance 2100 -945 1131 Weight 63.503 kg 59 kg General appearance: PRESENT: no acute distress, thin, well-developed Head exam: PRESENT: atraumatic, normocephalic Eye exam: PRESENT: conjunctiva pink, EOMI, PERRLA. ABSENT: scleral icterus Mouth exam: PRESENT: moist, tongue midline Teeth exam: PRESENT: poor dentation Neck exam: PRESENT: tracheostomy - Chronically vent dependent. ABSENT: carotid bruit, JVD, lymphadenopathy, thyromegaly Respiratory exam: PRESENT: clear to auscultation karla, symmetrical, unlabored. ABSENT: rales, rhonchi, wheezes Cardiovascular exam: PRESENT: RRR, +S1, +S2. ABSENT: diastolic murmur, rubs, systolic murmur Pulses: PRESENT: normal dorsalis pedis pul Vascular exam: PRESENT: normal capillary refill GI/Abdominal exam: PRESENT: normal bowel sounds, soft, other - PEG tube. AB SENT: distended, guarding, mass, organolmegaly, rebound, tenderness Rectal exam: PRESENT: deferred Extremities exam: PRESENT: other - Trace edema bilateral upper extremities; significantly improved. ABSENT: calf tenderness, clubbing, pedal edema Neurological exam: PRESENT: alert, awake, other - Difficult to perform neurolo gical examination due to nonverbal status and underlying ALS. Visible fasciculations.. ABSENT: motor sensory deficit Skin exam: PRESENT: dry, warm, other - Stage I pressure ulcer (POA) to sacrum. ABSENT: cyanosis, intact, rash Results Laboratory Results: 02/01/20 06:42 02/01/20 06:42 01/31/20 02/01/20 02/01/20 14:21 06:42 06:42 WBC 11.9 H 11.2 H RBC 3.93 L 3.86 L Hgb 10.9 L 10.6 L Hct 33.1 L 32.8 L MCV 84 85 MCH 27.9 27.6 MCHC 33.0 32.4 RDW 15.7 H 15.4 H Plt Count 310 307 Seg Neutrophils % 83.0 H Sodium 131.8 L Potassium 4.1 Chloride 91 L Carbon Dioxide 33 H Anion Gap 8 BUN 12 Creatinine < 0.15 L Est GFR ( Amer) > 60 Glucose 173 H Calcium 9.8 01/30/20 16:50 Blood Blood Culture (PCR) - Final Staphylococcus Species 01/30/20 01/30/20 01/30/20 15:30 15:30 16:50 Creatine Kinase Cancelled Troponin I Cancelled < 0.012 01/30/20 16:50 Creatine Kinase 68 Troponin I Impressions: Chest X-Ray 01/30/20 16:31 IMPRESSION: Stable chronic changes without focal consolidation or other evidence of acute intrathoracic process. Venous Doppler Study 01/31/20 00:00 IMPRESSION: NO EVIDENCE DVT OR SVT RIGHT OR LEFT ARM. Assessment and Plan - Diagnosis (1) Bacteremia Is this a current diagnosis for this admission?: Yes Plan: Blood cultures (01/30/2020) show gram-positive cocci in 1 bottle each set. Repeat blood cultures pending. 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 He is placed on IV vancomycin. (2) Urinary tract infectious disease Qualifiers: Urinary tract infection type: catheter-associated UTI Indwelling urinary catheter type: indwelling urethral catheter Encounter type: initial encounter Qualified Code(s): T83.511A - Infection and inflammatory reaction due to indwelling urethral catheter, initial encounter; N39.0 - Urinary tract infection, site not specified Is this a current diagnosis for this admission?: Yes Plan: UA was positive for large leukocyte esterase and multiple WBC Urine culture shows Gram Neg Rods. Was being treated with Levaquin as outpatient. Currently on ceftriaxone; Day #2 He is also being started on Vancomycin r/t blood culture results. (3) Sepsis Is this a current diagnosis for this admission?: Yes Plan: Patient presented with sepsis, due to UTI and bacteremia, evidenced by hypotension, tachycardia, and altered mentation. He did not have leukocytosis on arrival, however, follow-up lab work showed WBCs 12.7. Chest x-ray showed chronic emphysematous changes but no infiltrate or consolidation was seen Urinalysis suggested UTI. He was provided IV fluid resuscitation. Vital signs have now stabilized. Blood culture showed gram-positive cocci (1 bottle each set) Repeat blood cultures pending. Urine culture shows gram-negative rods. He is admitted to [facility]. Empirically placed on IV ceftriaxone; day #2. Now that blood cultures are showing gram-positive cocci, he will be placed on IV vancomycin. Patient does have a history of MRSA in his sputum. (4) ALS (amyotrophic lateral sclerosis) Is this a current diagnosis for this admission?: Yes Plan: Continue tracheostomy care with frequent suctioning and aspiration precaution Has PEG tube for tube feeding (5) Chronic respiratory failure requiring continuous mechanical ventilation through tracheostomy Is this a current diagnosis for this admission?: Yes Plan: Patient on long-term mechanical ventilation through tracheostomy due to respiratory failure from ALS Currently saturating well on mechanical ventilation with FiO2 of 21% Continue mechanical ventilation at home settings (6) COPD (chronic obstructive pulmonary disease) Is this a current diagnosis for this admission?: Yes Plan: Currently not in acute exacerbation Continue breathing treatment with DuoNeb (7) GI bleed Is this a current diagnosis for this admission?: Yes Plan: Now s/p 2 units PRBC Hgb stable; 10.9-> 10.6 post transfusion. Occult stool positive. Started him on IV PPI Surgery was consulted and recommended conservative measures and not pursuing endoscopy (8) Anemia requiring transfusions Is this a current diagnosis for this admission?: Yes Plan: Presumed to be related to GI bleeding. Currently appears hemodynamically stable Stool guaiac was positive at the ED Now s/p 2 units PRBC Follow CBC and transfuse for Hgb <8. Patient's private RN was able to verify that his baseline Hgb is 9-10. (9) Hyperkalemia Is this a current diagnosis for this admission?: Yes Plan: Corrected; K 5.8-> 4.1 No associated EKG changes were noted Patient was hydrated with IV fluids Follow chemistries (10) Hyponatremia Is this a current diagnosis for this admission?: Yes Plan: Serum sodium 129-> 131.8 Likely due to volume depletion Continue gently IVF Have also resumed TF Follow up chemistries (11) Hypotension Qualifiers: Hypotension type: unspecified hypotension type Qualified Code(s): I95.9 - Hypotension, unspecified Is this a current diagnosis for this admission?: Yes Plan: Resolved. Likely hypovolemic could also be due to sepsis Closely monitor vital signs - Time Time Spent with patient: 35 or more minutes Medications reviewed and adjusted accordingly: Yes Anticipated Discharge Disposition: Home with Home Health Anticipated Discharge Timeframe: TBD
[2020-02-01] MEDS: ACETAMINOPHEN SOLN 325 MG/10.15 ML UDCUP PO SCH ×2 (16:54→17:06)
[2020-02-01] MEDS: VANCOMYCIN HCL 500 MG in DEXTROSE 5%-WATER 100 ML IV SCH (17:06)
[2020-02-01] MEDS: NORMAL SALINE 1000 ML 1,000 ML IV PRN (17:07)
[2020-02-01] MEDS ORDERED: GLUCAGON,HUMAN RECOMB 1 MG INJ IM PRN (17:30)
[2020-02-01] MEDS ORDERED: DEXTROSE 40% GEL 15 GM TUBE PO PRN (17:30)
[2020-02-01] MEDS ORDERED: DEXTROSE 50%-WATER SYRINGE 12.5 GM/25 ML DOSE IV PRN (17:30)
[2020-02-01] MEDS ORDERED: DEXTROSE 50%-WATER SYRINGE 25 GM/50 ML DOSE IV PRN (17:30)
[2020-02-01] MEDS ORDERED: DEXTROSE 40% GEL 15 GM TUBE X 2 PO PRN (17:30)
[2020-02-01] MEDS: TRAZODONE HCL 50 MG TABLET PEG SCH (22:03)
[2020-02-02] MEDS: ACETAMINOPHEN SOLN 325 MG/10.15 ML UDCUP PO SCH ×5 (00:01→23:41)
[2020-02-02] MEDS: VANCOMYCIN HCL 500 MG in DEXTROSE 5%-WATER 100 ML IV SCH ×2 (06:03→17:13)
[2020-02-02 06:16] LABS: HEMATOCRIT 30.2 % (37.9-51.0); HEMOGLOBIN 9.9 g/dL (13.5-17.0); MEAN CORPUSCULAR HGB CONC 32.8 g/dL (32.0-36.0); MEAN CORPUSCULAR VOLUME 85 fl (80-97); PLATELET COUNT 268 10^3/uL (150-450); RED BLOOD COUNT 3.54 10^6/uL (4.35-5.55); RED CELL DISTRIBUTION WIDTH 15.6 % (11.5-14.0); WHITE BLOOD COUNT 8.2 10^3/uL (4.0-10.5)
[2020-02-02 06:49] LABS: BLOOD UREA NITROGEN 13 mg/dL (7-20); CALCIUM 9.6 mg/dL (8.4-10.2); GLUCOSE 91 mg/dL (75-110); POTASSIUM 4.8 mmol/L (3.6-5.0)
[2020-02-02 06:55] LABS: ANION GAP 5 (5-19); CARBON DIOXIDE 35 mmol/L (22-30); CHLORIDE 93 mmol/L (98-107)
[2020-02-02] MEDS: BUDESONIDE NEB 0.5 MG/2 ML AMPUL NEB SCH ×2 (07:51→19:53)
[2020-02-02] MEDS: CEFTRIAXONE 1 GM/D5W RTU 1 GM/50 ML RTUPB IV SCH (10:31)
[2020-02-02] MEDS: NORMAL SALINE 1000 ML 1,000 ML IV PRN ×2 (10:32→23:43)
[2020-02-02] MEDS: ESCITALOPRAM OXALATE 10 MG TABLET PEG SCH (10:35)
[2020-02-02] MEDS: GABAPENTIN 300 MG CAPSULE PEG SCH ×3 (10:35→17:13)
[2020-02-02] MEDS: CLONAZEPAM 1 MG TABLET PEG SCH ×3 (10:36→17:13)
[2020-02-02] MEDS: MULTIVITAMIN ORAL LIQUID 60 ML PO SCH (10:36)
[2020-02-02] MEDS: MORPHINE SULFATE IR 15 MG TABLET PO SCH ×2 (10:36→17:13)
[2020-02-02] MEDS: PANTOPRAZOLE SODIUM 40 MG VIAL IV SCH ×2 (10:37→21:58)
--- NOTE | 2020-02-02 14:21 | PDOC PROGRESS REPORT ---
Subjective Date:: 02/02/20 Subjective:: The patient is a 64-year-old male with a past medical history of ALS with tracheostomy who is vent dependent, with hypertension, COPD, arthritis, and chronic anemia who was admitted 01/31/2020 with anemia secondary to GI bleed and sepsis presumed to be related to urinary tract infection. Patient was seen on morning rounds with his present. He was found to be resting in bed, comfortably, on ventilator at his baseline settings. Communication is limited with his providing interpretation of facial expressions and lip reading. He denies discomfort, difficulty breathing, palpitations, abdominal pain, nausea, vomiting, diarrhea. Reviewed labs, vital signs, and culture results. Discussed recommendations that patient be placed on IV antibiotics until cultures are finalized. Urine shows ESBL E. coli and after discussion w/ Micro department, one blood culture set is being sent for confirmation due to irregular results. Repeat blood cultures are negative. Hopefully finalized cultures will be available and confirm contamination. They have no questions or concerns at this time. No concerns per nursing. Reason For Visit: SEVERE ANEMIA,GI BLEED,SEPSIS,UTI,HYPERKALEMIA Physical Exam Vital Signs: Temp Pulse Resp BP Pulse Ox 97.4 F 88 20 126/72 H 100 02/02/20 12:26 02/02/20 12:26 02/02/20 12:26 02/02/20 12:26 02/02/20 12:26 Intake & Output 02/01/20 02/02/20 02/03/20 06:59 06:59 06:59 Intake Total 2230 3846 Output Total 3175 2925 Balance -945 921 Weight 59 kg 60.1 kg Results Laboratory Results: 02/02/20 06:03 02/02/20 06:03 02/02/20 02/02/20 06:03 06:03 WBC 8.2 RBC 3.54 L Hgb 9.9 L Hct 30.2 L MCV 85 MCH 28.0 MCHC 32.8 RDW 15.6 H Plt Count 268 Sodium 132.7 L Potassium 4.8 Chloride 93 L Carbon Dioxide 35 H Anion Gap 5 BUN 13 Creatinine < 0.15 L Est GFR ( Amer) > 60 Glucose 91 Calcium 9.6 01/30/20 18:30 Blood Blood Culture (PCR) - Final 01/30/20 17:30 Catheterized Urine Urine Culture - Final Escherichia Coli Esbl 01/30/20 16:50 Blood Blood Culture (PCR) - Final Staphylococcus Species 01/30/20 01/30/20 01/30/20 15:30 15:30 16:50 Creatine Kinase Cancelled Troponin I Cancelled < 0.012 01/30/20 16:50 Creatine Kinase 68 Troponin I Impressions: Chest X-Ray 01/30/20 16:31 IMPRESSION: Stable chronic changes without focal consolidation or other evidence of acute intrathoracic process. Venous Doppler Study 01/31/20 00:00 IMPRESSION: NO EVIDENCE DVT OR SVT RIGHT OR LEFT ARM. Assessment and Plan - Diagnosis (1) Bacteremia Is this a current diagnosis for this admission?: Yes Plan: Blood cultures (01/30/2020) show Staph Epi w/ multiple resistances in 1 set and Coag Neg staph in the other set. Discussed w/ Micro department, Coag Neg Staph is being sent for confirmation due to irregular results. Hopefully finalized cultures will be available and confirm contamination. Repeat blood cultures negative at 24 hours. 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 He is placed on IV vancomycin. Day #2. (2) Urinary tract infectious disease Qualifiers: Urinary tract infection type: catheter-associated UTI Indwelling urinary catheter type: indwelling urethral catheter Encounter type: initial encounter Qualified Code(s): T83.511A - Infection and inflammatory reaction due to indwelling urethral catheter, initial encounter; N39.0 - Urinary tract infection, site not specified Is this a current diagnosis for this admission?: Yes Plan: UA was positive for large leukocyte esterase and multiple WBC Urine culture shows ESBL E. Coli. resistance to fluoroquinolones and ceph alosporins. Was being treated with Levaquin as outpatient. Received 2 days of ceftriaxone; this is discontinued today based on culture results. Start IV PIP/Tazo. He is also being started on Vancomycin r/t blood culture results. (3) Sepsis Is this a current diagnosis for this admission?: Yes Plan: Improved. Leukocytosis has resolved. Vital signs are stable. Patient presented with sepsis, due to UTI and bacteremia, evidenced by hypotension, tachycardia, and altered mentation. He did not have leukocytosis on arrival, however, follow-up lab work showed WBCs 12.7. Chest x-ray showed chronic emphysematous changes but no infiltrate or consolidation was seen Urinalysis suggested UTI. He was provided IV fluid resuscitation. Vital signs have now stabilized. Cultures as above. He is admitted to [facility]. Received Ceftriaxon x 2 days. Now discontinued. Have started Vancomycin; Day #2 Start IV Zosyn. (4) ALS (amyotrophic lateral sclerosis) Is this a current diagnosis for this admission?: Yes Plan: Continue tracheostomy care with frequent suctioning and aspiration precaution Has PEG tube for tube feeding (5) Chronic respiratory failure requiring continuous mechanical ventilation through tracheostomy Is this a current diagnosis for this admission?: Yes Plan: Patient on long-term mechanical ventilation through tracheostomy due to respiratory failure from ALS Currently saturating well on mechanical ventilation with FiO2 of 21% Continue mechanical ventilation at home settings (6) COPD (chronic obstructive pulmonary disease) Is this a current diagnosis for this admission?: Yes Plan: Currently not in acute exacerbation Continue breathing treatment with DuoNeb (7) GI bleed Is this a current diagnosis for this admission?: Yes Plan: Now s/p 2 units PRBC Hgb stable; 7.8-> 7.0-> 2 units PRBC -> 10.9-> 10.6-> 9.9 Occult stool positive. Started him on IV PPI Tolerating Tube Feeds. Surgery was consulted and recommended conservative measures and not pursuing endoscopy (8) Anemia requiring transfusions Is this a current diagnosis for this admission?: Yes Plan: Presumed to be related to GI bleeding. Currently appears hemodynamically stable Stool guaiac was positive at the ED Now s/p 2 units PRBC Follow CBC and transfuse for Hgb <8. Patient's private RN was able to verify that his baseline Hgb is 9-10. (9) Hyperkalemia Is this a current diagnosis for this admission?: Yes Plan: Corrected; K 5.8-> 4.1 No associated EKG changes were noted Patient was hydrated with IV fluids Follow chemistries (10) Hyponatremia Is this a current diagnosis for this admission?: Yes Plan: Serum sodium 129-> 131.8-> 132.7 Likely due to volume depletion Continue gently IVF Have resumed TF Follow up chemistries (11) Hypotension Qualifiers: Hypotension type: unspecified hypotension type Qualified Code(s): I95.9 - Hypotension, unspecified Is this a current diagnosis for this admission?: Yes Plan: Resolved. Likely hypovolemic could also be due to sepsis Closely monitor vital signs - Time Time Spent with patient: 25-34 minutes Medications reviewed and adjusted accordingly: Yes Anticipated Discharge Disposition: Home with Home Health Anticipated Discharge Timeframe: within 48 hours - pending culture results
[2020-02-02] MEDS: PIPERACILLIN SODIUM/TAZOBACTAM 3.375 GM in NORMAL SALINE 100 ML IV SCH ×2 (17:14→23:42)
[2020-02-02] MEDS: IPRATROPIUM/ALBUTEROL 0.5-2.5 MG/3 ML AMPUL NEB PRN (19:53)
[2020-02-02] MEDS: TRAZODONE HCL 50 MG TABLET PEG SCH (21:58)
[2020-02-02] MEDS ORDERED: NORMAL SALINE 1000 ML 1,000 ML IV ONE (22:45)
[2020-02-02 23:20] LABS: HEMATOCRIT 31.6 % (37.9-51.0); HEMOGLOBIN 10.3 g/dL (13.5-17.0); MEAN CORPUSCULAR HEMOGLOBIN 27.8 pg (27.0-33.4); MEAN CORPUSCULAR HGB CONC 32.6 g/dL (32.0-36.0); MEAN CORPUSCULAR VOLUME 85 fl (80-97); PLATELET COUNT 276 10^3/uL (150-450); RED BLOOD COUNT 3.71 10^6/uL (4.35-5.55); RED CELL DISTRIBUTION WIDTH 15.4 % (11.5-14.0); WHITE BLOOD COUNT 8.5 10^3/uL (4.0-10.5)
[2020-02-03] MEDS: PIPERACILLIN SODIUM/TAZOBACTAM 3.375 GM in NORMAL SALINE 100 ML IV SCH ×3 (05:46→17:45)
[2020-02-03 06:05] LABS: HEMOGLOBIN 9.8 g/dL (13.5-17.0); MEAN CORPUSCULAR HEMOGLOBIN 27.6 pg (27.0-33.4); MEAN CORPUSCULAR HGB CONC 32.6 g/dL (32.0-36.0); MEAN CORPUSCULAR VOLUME 85 fl (80-97); PLATELET COUNT 255 10^3/uL (150-450); RED BLOOD COUNT 3.54 10^6/uL (4.35-5.55); RED CELL DISTRIBUTION WIDTH 15.7 % (11.5-14.0); WHITE BLOOD COUNT 9.2 10^3/uL (4.0-10.5)
[2020-02-03] MEDS: ACETAMINOPHEN SOLN 325 MG/10.15 ML UDCUP PO SCH ×3 (06:23→18:39)
[2020-02-03] MEDS: VANCOMYCIN HCL 500 MG in DEXTROSE 5%-WATER 100 ML IV SCH (06:23)
[2020-02-03 06:28] LABS: ANION GAP 9 (5-19); BLOOD UREA NITROGEN 12 mg/dL (7-20); CALCIUM 9.3 mg/dL (8.4-10.2); CARBON DIOXIDE 30 mmol/L (22-30); CHLORIDE 97 mmol/L (98-107); GLUCOSE 86 mg/dL (75-110); POTASSIUM 4.4 mmol/L (3.6-5.0)
[2020-02-03] MEDS: BUDESONIDE NEB 0.5 MG/2 ML AMPUL NEB SCH ×2 (08:14→19:49)
[2020-02-03] MEDS: CLONAZEPAM 1 MG TABLET PEG SCH ×3 (09:09→18:40)
[2020-02-03] MEDS: ESCITALOPRAM OXALATE 10 MG TABLET PEG SCH (09:09)
[2020-02-03] MEDS: MORPHINE SULFATE IR 15 MG TABLET PO SCH ×2 (09:09→18:39)
[2020-02-03] MEDS: MULTIVITAMIN ORAL LIQUID 60 ML PO SCH (09:09)
[2020-02-03] MEDS: GABAPENTIN 300 MG CAPSULE PEG SCH ×3 (09:09→18:39)
[2020-02-03] MEDS: VANCOMYCIN HCL 1,000 MG in DEXTROSE 5%-WATER 250 ML IV SCH (19:03)
[2020-02-03] MEDS: IPRATROPIUM/ALBUTEROL 0.5-2.5 MG/3 ML AMPUL NEB PRN (19:49)
--- NOTE | 2020-02-03 21:06 | PDOC PROGRESS REPORT ---
Subjective Date:: 02/03/20 Subjective:: The patient is a 64-year-old male with a past medical history of ALS with tracheostomy who is vent dependent, with hypertension, COPD, arthritis, and chronic anemia who was admitted 01/31/2020 with anemia secondary to GI bleed and sepsis presumed to be related to urinary tract infection. Seen on morning rounds with his home health aide present. He is seen sitting in bed comfortably on ventilator at his baseline settings. Patient is resting when I entered the room awakens easily. Communication between patient and myself and patient's aide. Patient without complaints or concerns today. Patient's aide is requesting that we change patient's trach if possible. Further questions or concerns at this time. Cussed with nursing no concerns. Reason For Visit: SEVERE ANEMIA,GI BLEED,SEPSIS,UTI,HYPERKALEMIA Physical Exam Vital Signs: Temp Pulse Resp BP Pulse Ox 97.8 F 103 H 17 138/89 H 99 02/03/20 16:00 02/03/20 19:49 02/03/20 19:49 02/03/20 16:00 02/03/20 16:00 Intake & Output 02/02/20 02/03/20 02/04/20 06:59 06:59 06:59 Intake Total 3846 3825 1071 Output Total 2925 3825 1400 Balance 921 0 -329 Weight 60.1 kg 61.3 kg 61.3 kg Additional comments: General appearance: PRESENT: no acute distress, thin, well-developed Head exam: PRESENT: atraumatic, normocephalic Eye exam: PRESENT: conjunctiva pink, EOMI, PERRLA. ABSENT: scleral icterus Mouth exam: PRESENT: moist, tongue midline Teeth exam: PRESENT: poor dentation Neck exam: PRESENT: tracheostomy is present, Chronically vent dependent. Respiratory exam: PRESENT: clear to auscultation karla, symmetrical, unlabored. ABSENT: rales, rhonchi, wheezes Cardiovascular exam: PRESENT: RRR, +S1, +S2. ABSENT: diastolic murmur, rubs, systolic murmur Pulses: PRESENT: normal dorsalis pedis pul Vascular exam: PRESENT: normal capillary refill GI/Abdominal exam: PRESENT: normal bowel sounds, soft, other - PEG tube. ABSENT: distended, guarding, mass, organolmegaly, rebound, tenderness Extremities exam: PRESENT: other - Minimal trace edema noted. ABSENT: calf tenderness, clubbing, pedal edema Neurological exam: PRESENT: alert, awake, other - Pt is nonverbal status and underlying ALS. ABSENT: motor sensory deficit Skin exam: PRESENT: dry, warm, other - Stage I pressure ulcer (POA) to sacrum. ABSENT: cyanosis, intact, rash Results Laboratory Results: 02/03/20 05:21 02/03/20 05:21 02/02/20 02/03/20 02/03/20 22:43 05:21 05:21 WBC 8.5 9.2 RBC 3.71 L 3.54 L Hgb 10.3 L 9.8 L Hct 31.6 L 30.0 L MCV 85 85 MCH 27.8 27.6 MCHC 32.6 32.6 RDW 15.4 H 15.7 H Plt Count 276 255 Sodium Potassium Chloride Carbon Dioxide Anion Gap BUN Creatinine < 0.15 L Est GFR ( Amer) > 60 Glucose Calcium 02/03/20 05:21 WBC RBC Hgb Hct MCV MCH MCHC RDW Plt Count Sodium 136.3 L Potassium 4.4 Chloride 97 L Carbon Dioxide 30 Anion Gap 9 BUN 12 Creatinine < 0.15 L Est GFR ( Amer) > 60 Glucose 86 Calcium 9.3 01/30/20 16:50 Blood Blood Culture (PCR) - Final Staphylococcus Species 01/30/20 16:50 Blood Blood Culture - Final Staphylococcus Epidermidis 01/30/20 18:30 Blood Blood Culture (PCR) - Final 01/30/20 18:30 Blood Blood Culture - Final Staphylococcus Epidermidis Micrococcus Species 01/30/20 01/30/20 01/30/20 15:30 15:30 16:50 Creatine Kinase Cancelled Troponin I Cancelled < 0.012 01/30/20 16:50 Creatine Kinase 68 Troponin I Impressions: Chest X-Ray 01/30/20 16:31 IMPRESSION: Stable chronic changes without focal consolidation or other evidence of acute intrathoracic process. Venous Doppler Study 01/31/20 00:00 IMPRESSION: NO EVIDENCE DVT OR SVT RIGHT OR LEFT ARM. Assessment and Plan - Diagnosis (1) Bacteremia Is this a current diagnosis for this admission?: Yes Plan: Blood cultures (01/30/2020) show Staph Epi w/ multiple resistances in 1 set and Micrococcus specis in other. - Discussed w/ Micro department, coag negative results, likely secondary to contamination. - Repeat blood cultures negative at 48 hours. 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 Completed 3 days vanc, with plan to discontinue. (2) Urinary tract infectious disease Qualifiers: Urinary tract infection type: catheter-associated UTI Indwelling urinary catheter type: indwelling urethral catheter Encounter type: initial encounter Qualified Code(s): T83.511A - Infection and inflammatory reaction due to indwelling urethral catheter, initial encounter; N39.0 - Urinary tract infection, site not specified Is this a current diagnosis for this admission?: Yes Plan: UA was positive for large leukocyte esterase and multiple WBC Urine culture shows ESBL E. Coli. resistance to fluoroquinolones and cephalosporins. Was being treated with Levaquin as outpatient. Received 2 days of ceftriaxone; this is discontinued today based on culture results. Continued IV PIP/Tazo day 2. Day 3 vanc r/t blood culture. (3) Sepsis Is this a current diagnosis for this admission?: Yes Plan: Improved. Leukocytosis remains. Vital signs are stable. Patient presented with sepsis, due to UTI and bacteremia, evidenced by hypotension, tachycardia, and altered mentation. He did not have leukocytosis on arrival, however, follow-up lab work showed WBCs 12.7. Chest x-ray showed chronic emphysematous changes but no infiltrate or consolidation was seen Urinalysis suggested UTI, proven via UC. He was provided IV fluid resuscitation. Vital signs have now stabilized. Cultures as above. He is admitted to [facility]. Received Ceftriaxon x 2 days. Have started Vancomycin; Day #3. Start IV Zosyn as above. (4) ALS (amyotrophic lateral sclerosis) Is this a current diagnosis for this admission?: Yes Plan: Continue tracheostomy care with frequent suctioning and aspiration precaution Has PEG tube for tube feeding (5) Chronic respiratory failure requiring continuous mechanical ventilation through tracheostomy Is this a current diagnosis for this admission?: Yes Plan: Patient on long-term mechanical ventilation through tracheostomy due to respiratory failure from ALS Currently saturating well on mechanical ventilation with FiO2 of 21% Continue mechanical ventilation at home settings (6) COPD (chronic obstructive pulmonary disease) Is this a current diagnosis for this admission?: Yes Plan: Currently not in acute exacerbation Continue breathing treatment with DuoNeb (7) GI bleed Is this a current diagnosis for this admission?: Yes Plan: Now s/p 2 units PRBC Hgb stable; 7.8-> 7.0-> 2 units PRBC -> 10.9-> 10.6-> 9.3. Occult stool positive. Started him on IV PPI Tolerating Tube Feeds. Surgery was consulted and recommended conservative measures and not pursuing endoscopy. (8) Anemia requiring transfusions Is this a current diagnosis for this admission?: Yes Plan: Pt currently at his baseline Hgb 9.8. Presumed to be related to GI bleeding. Currently appears hemodynamically stable Stool guaiac was positive at the ED Now s/p 2 units PRBC Follow CBC and transfuse for Hgb <8. Patient's private RN was able to verify that his baseline Hgb is 9-10. (9) Hyperkalemia Is this a current diagnosis for this admission?: Yes Plan: Corrected; K 5.8-> 4.4 No associated EKG changes were noted Patient was hydrated with IV fluids Follow chemistries (10) Hyponatremia Is this a current diagnosis for this admission?: Yes Plan: Serum sodium 129-> 131.8-> 132.7 -> 136.3 Likely due to volume depletion Continue gently IVF Have resumed TF Follow up chemistries (11) Hypotension Qualifiers: Hypotension type: unspecified hypotension type Qualified Code(s): I95.9 - Hypotension, unspecified Is this a current diagnosis for this admission?: Yes Plan: Resolved. Likely hypovolemic could also be due to sepsis Closely monitor vital signs - Time Time Spent with patient: 25-34 minutes Medications reviewed and adjusted accordingly: Yes Anticipated Discharge Disposition: Home with Home Health Anticipated Discharge Timeframe: within 24 hours
[2020-02-03] MEDS: TRAZODONE HCL 50 MG TABLET PEG SCH (21:45)
[2020-02-04] MEDS: PIPERACILLIN SODIUM/TAZOBACTAM 3.375 GM in NORMAL SALINE 100 ML IV SCH ×3 (00:23→13:20)
[2020-02-04] MEDS: ACETAMINOPHEN SOLN 325 MG/10.15 ML UDCUP PO SCH ×3 (00:23→13:20)
[2020-02-04] MEDS: VANCOMYCIN HCL 1,000 MG in DEXTROSE 5%-WATER 250 ML IV SCH (06:52)
[2020-02-04] MEDS: IPRATROPIUM/ALBUTEROL 0.5-2.5 MG/3 ML AMPUL NEB PRN (09:06)
[2020-02-04] MEDS: BUDESONIDE NEB 0.5 MG/2 ML AMPUL NEB SCH (09:06)
[2020-02-04] MEDS: MULTIVITAMIN ORAL LIQUID 60 ML PO SCH (10:14)
[2020-02-04] MEDS: MORPHINE SULFATE IR 15 MG TABLET PO SCH (10:16)
[2020-02-04] MEDS: ESCITALOPRAM OXALATE 10 MG TABLET PEG SCH (10:16)
[2020-02-04] MEDS: GABAPENTIN 300 MG CAPSULE PEG SCH ×2 (10:16→13:27)
[2020-02-04] MEDS: CLONAZEPAM 1 MG TABLET PEG SCH ×2 (10:16→13:20)
[2020-02-04] MEDS: NORMAL SALINE 1000 ML 1,000 ML IV PRN (10:21)
[2020-02-04 14:15] VITALS: BP 141/72
--- NOTE | 2020-02-04 18:02 | PDOC DISCHARGE SUMMARY ---
Impression - Admit/DC Date/PCP Admission Date/Primary Care Provider: 01/31/20 06:23 [facility] Discharge Date: 02/04/20 - Discharge Diagnosis (1) Bacteremia Is this a current diagnosis for this admission?: Yes (2) Urinary tract infectious disease Is this a current diagnosis for this admission?: Yes (3) Sepsis Is this a current diagnosis for this admission?: Yes (4) ALS (amyotrophic lateral sclerosis) Is this a current diagnosis for this admission?: Yes (5) Chronic respiratory failure requiring continuous mechanical ventilation through tracheostomy Is this a current diagnosis for this admission?: Yes (6) COPD (chronic obstructive pulmonary disease) Is this a current diagnosis for this admission?: Yes (7) GI bleed Is this a current diagnosis for this admission?: Yes (8) Anemia requiring transfusions Is this a current diagnosis for this admission?: Yes (9) Hyperkalemia Is this a current diagnosis for this admission?: Yes (10) Hyponatremia Is this a current diagnosis for this admission?: Yes (11) Hypotension Is this a current diagnosis for this admission?: Yes - Additional Information Resuscitation Status: Full Code Discharge Diet: Tube Feeding (Comments) Discharge Activity: Activity As Tolerated Referrals: [facility] [Primary Care Provider] - 02/04/20 11:53 am (PATIENT WILL CONTACT [facility] FOR FOLLOW UP APPT) Prescriptions: Nitrofurantoin Macrocrystal [Nitrofurantoin] 50 mg PO Q6H #12 capsule Home Medications: Multivitamin [Tab-A-Fabian (Multiple Vitamin) Tablet] 1 tab PEG DAILY 03/14/18 Acetaminophen [Tylenol 325 mg Tablet] 650 mg PEG Q6 01/31/20 Budesonide [Pulmicort Neb 0.5 mg/2 ml Ampul] 0.5 mg NEB RTQ12 01/31/20 Cephalexin Monohydrate [Keflex 500 mg Capsule] 500 mg PEG DAILY 01/31/20 Clonazepam [Klonopin 1 mg Tablet] 1 mg PEG TID 01/31/20 Diphenhydramine HCl [Benadryl] 12.5 mg PEG BID 01/31/20 Escitalopram Oxalate [Lexapro 10 mg Tablet] 10 mg PEG DAILY 01/31/20 Gabapentin [Neurontin] 600 mg PEG TID 01/31/20 Guar Gum [Nutrisource Fiber] 1 each PO TID 01/31/20 Morphine Sulfate [Morphine Ir 15 mg Tablet] 15 mg PO BID 01/31/20 Riluzole 50 mg PEG BID 01/31/20 Trazodone HCl [Desyrel 50 mg Tablet] 50 mg PEG QHS 01/31/20 Nitrofurantoin Macrocrystal [Nitrofurantoin] 50 mg PO Q6H #12 capsule 02/04/20 History of Present Illiness History of Present Illness: As per admitting HPI 01/31/20 "LEONILA HERBERT is a 64 year old male with a history of ALS diagnosed 6 months back currently on permanent mechanical ventilation through tracheostomy presented to the ED after he had an episode of passing out this afternoon while he was with caregiver. Patient is nonverbal and history is mainly from ER signout, and his . Patient's is bedside and states has been at his baseline state of in the morning but yesterday afternoon while she was with his caregiver suddenly passed out and and stayed altered from his baseline until he arrived at the emergency department. She states that occasionally he has fever and sweating he was being managed with Tylenol. On arrival at the ED patient's blood pressure was 79/60, tachycardic with heart rate in the 1 teens. His initial hemoglobin was 7.8 which dropped to 7.0 few hours later patient stool guaiac was positive. He was typed, crossmatched and was transfused was 2 units of packed RBC and he was given IV fluids after which his blood pressure came up with systolic ranging in the 130s and 140s. Patient was able to respond with facial fine and states that he is not in pain and currently is not short of breath." Hospital Course Hospital Course: Bacteremia Blood cultures (01/30/2020) show Staph Epi w/ multiple resistances in 1 set and Micrococcus specis in other. - Discussed w/ Micro department, coag negative results, likely secondary to contamination. - Repeat blood cultures negative at 48 hours. 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 Completed 3 days vanc total, discontinued, likely contaminant and with negative blood cultures 48 hours. Urinary tract infectious disease UA was positive for large leukocyte esterase and multiple WBC Urine culture shows ESBL E. Coli. resistance to fluoroquinolones and cephalosporins. Was being treated with Levaquin as outpatient. Received 2 days of ceftriaxone; this is discontinued today based on culture results. Received 3 total days of IV PIP/Tazo day. Transition to Nitrofurantoin 50mg by PEG tube every 6 hours for 3 more days. Sepsis Resolved leukocytosis remains. Vital signs are stable. Patient presented with sepsis, due to UTI and bacteremia, evidenced by hypotension, tachycardia, and altered mentation. He did not have leukocytosis on arrival, however, follow-up lab work showed WBCs 12.7. Chest x-ray showed chronic emphysematous changes but no infiltrate or consolidation was seen Urinalysis suggested UTI, proven via UC. He was provided IV fluid resuscitation. Vital signs have now stabilized. Cultures as above. He is admitted to [facility]. Received Ceftriaxon x 2 days. Received vancomycin 3 days Received IV Zosyn as above. ALS (amyotrophic lateral sclerosis) Continue tracheostomy care with frequent suctioning and aspiration precaution Has PEG tube for tube feeding Chronic respiratory failure requiring continuous mechanical ventilation through tracheostomy Patient on long-term mechanical ventilation through tracheostomy due to respiratory failure from ALS Currently saturating well on mechanical ventilation with FiO2 of 21% Continue mechanical ventilation at home settings GI bleed / Anemia requiring transfusions Received 2 units PRBC Hgb stable; 7.8-> 7.0-> 2 units PRBC -> 10.9-> 10.6-> 9.3. Occult stool positive. Started him on IV PPI Tolerating Tube Feeds. Surgery was consulted and recommended conservative measures and not pursuing endoscopy. Pt currently at his baseline Hgb 9.8. Presumed to be related to GI bleeding. Currently appears hemodynamically stable Patient's private RN was able to verify that his baseline Hgb is 9-10. Hypotension Resolved. Likely hypovolemic could also be due to sepsis Physical Exam Vital Signs: Temp Pulse Resp BP Pulse Ox 98.8 F 98 14 141/72 H 98 02/04/20 14:13 02/04/20 14:13 02/04/20 14:13 02/04/20 14:13 02/04/20 14:13 Intake & Output 02/03/20 02/04/20 02/05/20 06:59 06:59 06:59 Intake Total 3825 2678 964 Output Total 3825 3600 Balance 0 -922 964 Weight 61.3 kg 60.1 kg Additional comments: General appearance: PRESENT: no acute distress, thin, well-developed Neck exam: PRESENT: tracheostomy is present, Chronically vent dependent. Respiratory exam: PRESENT: clear to auscultation karla, symmetrical, unlabored. Without wheezes. Cardiovascular exam: PRESENT: RRR, +S1, +S2. ABSENT: diastolic murmur, rubs, systolic murmur Pulses: PRESENT: normal dorsalis pedis pul Vascular exam: PRESENT: normal capillary refill GI/Abdominal exam: PRESENT: normal bowel sounds, soft, other - PEG tube. ABSENT: distended, guarding, mass, organolmegaly, rebound, tenderness Extremities exam: PRESENT: other - Minimal trace edema noted. ABSENT: calf tenderness, clubbing, pedal edema Neurological exam: PRESENT: alert, awake, other - Pt is nonverbal status and underlying ALS. ABSENT: motor sensory deficit Skin exam: PRESENT: dry, warm, other - Stage I pressure ulcer (POA) to sacrum. ABSENT: cyanosis, intact, rash Results Laboratory Results: WBC 9.2 10^3/uL (4.0-10.5) 02/03/20 05:21 RBC 3.54 10^6/uL (4.35-5.55) L 02/03/20 05:21 Hgb 9.8 g/dL (13.5-17.0) L 02/03/20 05:21 Hct 30.0 % (37.9-51.0) L 02/03/20 05:21 MCV 85 fl (80-97) 02/03/20 05:21 MCH 27.6 pg (27.0-33.4) 02/03/20 05:21 MCHC 32.6 g/dL (32.0-36.0) 02/03/20 05:21 RDW 15.7 % (11.5-14.0) H 02/03/20 05:21 Plt Count 255 10^3/uL (150-450) 02/03/20 05:21 Lymph % (Auto) 10.8 % (13-45) L 01/31/20 14:21 [place] % (Auto) 5.1 % (3-13) 01/31/20 14:21 Eos % (Auto) 0.7 % (0-6) 01/31/20 14:21 Baso % (Auto) 0.4 % (0-2) 01/31/20 14:21 Absolute Neuts (auto) 9.9 10^3/uL (1.7-8.2) H 01/31/20 14:21 Absolute Lymphs (auto) 1.3 10^3/uL (0.5-4.7) 01/31/20 14:21 Absolute Monos (auto) 0.6 10^3/uL (0.1-1.4) 01/31/20 14:21 Absolute Eos (auto) 0.1 10^3/uL (0.0-0.6) 01/31/20 14:21 Absolute Basos (auto) 0.0 10^3/uL (0.0-0.2) 01/31/20 14:21 Seg Neutrophils % 83.0 % (42-78) H 01/31/20 14:21 PT 12.3 SEC (11.4-15.4) 01/30/20 15:30 INR 0.90 01/30/20 15:30 D-Dimer > 20.00 ug/mL (0.00-0.50) H* 01/30/20 15:30 VBG pH 7.36 (7.30-7.42) 01/30/20 16:50 VBG pCO2 68.2 mmHg (35-63) H* 01/30/20 16:50 VBG HCO3 37.6 mmol/L (20-32) H 01/30/20 16:50 VBG Base Excess 10.4 mmol/L 01/30/20 16:50 Sodium 136.3 mmol/L (137-145) L 02/03/20 05:21 Potassium 4.4 mmol/L (3.6-5.0) 02/03/20 05:21 Chloride 97 mmol/L (98-107) L 02/03/20 05:21 Carbon Dioxide 30 mmol/L (22-30) 02/03/20 05:21 Anion Gap 9 (5-19) 02/03/20 05:21 BUN 12 mg/dL (7-20) 02/03/20 05:21 Creatinine < 0.15 mg/dL (0.52-1.25) L 02/03/20 05:21 Creatinine < 0.15 mg/dL (0.52-1.25) L 02/03/20 05:21 Est GFR ( Amer) > 60 (>60) 02/03/20 05:21 Est GFR ( Amer) > 60 (>60) 02/03/20 05:21 Est GFR (Non-Af Amer) Cancelled 01/30/20 15:30 Est GFR (MDRD) Non-Af > 60 (>60) 02/03/20 05:21 Est GFR (MDRD) Non-Af > 60 (>60) 02/03/20 05:21 Glucose 86 mg/dL (75-110) 02/03/20 05:21 POC Glucose 115 mg/dL (70-110) H 02/04/20 12:45 Lactic Acid 1.1 mmol/L (0.7-2.1) 01/31/20 02:45 Calcium 9.3 mg/dL (8.4-10.2) 02/03/20 05:21 Magnesium 1.7 mg/dL (1.6-2.3) 01/30/20 16:50 Ferritin 496.00 ng/mL (17.9-464.0) H 01/30/20 16:50 Total Bilirubin 0.5 mg/dL (0.2-1.3) 01/30/20 16:50 Direct Bilirubin 0.1 mg/dL (0.0-0.4) 01/30/20 16:50 Neonat Total Bilirubin Not Reportable 01/30/20 16:50 Neonat Direct Bilirubin Not Reportable 01/30/20 16:50 Neonat Indirect Bili Not Reportable 01/30/20 16:50 AST 35 U/L (17-59) 01/30/20 16:50 ALT 28 U/L (<50) 01/30/20 16:50 Alkaline Phosphatase 88 U/L (38-126) 01/30/20 16:50 Lactate Dehydrogenase 154 U/L (120-246) 01/30/20 18:30 Creatine Kinase 68 U/L (55-170) 01/30/20 16:50 Troponin I < 0.012 ng/mL 01/30/20 16:50 C-Reactive Protein 7.2 mg/L (<10.0) 01/30/20 16:50 Total Protein 7.0 g/dL (6.3-8.2) 01/30/20 16:50 Albumin 3.3 g/dL (3.5-5.0) L 01/30/20 16:50 EGFR Cancelled 01/30/20 15:30 Urine Color SIMRAN 01/30/20 17:30 Urine Appearance CLOUDY 01/30/20 17:30 Urine pH 7.0 (5.0-9.0) 01/30/20 17:30 Ur Specific [place] 1.018 01/30/20 17:30 Urine Protein 30 mg/dL (NEGATIVE) H 01/30/20 17:30 Urine Glucose (UA) NEGATIVE mg/dL (NEGATIVE) 01/30/20 17:30 Urine Ketones NEGATIVE mg/dL (NEGATIVE) 01/30/20 17:30 Urine Blood NEGATIVE (NEGATIVE) 01/30/20 17:30 Urine Nitrite NEGATIVE (NEGATIVE) 01/30/20 17:30 Urine Bilirubin NEGATIVE (NEGATIVE) 01/30/20 17:30 Urine Urobilinogen NEGATIVE mg/dL (<2.0) 01/30/20 17:30 Ur Leukocyte Esterase LARGE (NEGATIVE) H 01/30/20 17:30 Urine WBC (Auto) 99 /HPF 01/30/20 17:30 Urine RBC (Auto) 1 /HPF 01/30/20 17:30 U Hyaline Cast (Auto) 36 /LPF 01/30/20 17:30 Urine Bacteria (Auto) 3+ /HPF 01/30/20 17:30 Urine WBC Clumps MANY /HPF 01/30/20 17:30 Squamous Epi Cells Auto 1 /HPF 01/30/20 17:30 Urine Mucus (Auto) OCC /LPF 01/30/20 17:30 Urine Ascorbic Acid 40 (NEGATIVE) H 01/30/20 17:30 POC Stool Occult Blood POSITIVE (NEGATIVE) 01/30/20 18:35 Time Trough Drawn 0521 02/03/20 05:21 Vancomycin Trough 7.0 ug/mL (5.0-20.0) 02/03/20 05:21 Blood Type O POSITIVE 01/30/20 17:30 Antibody Screen NEGATIVE 01/30/20 17:30 Crossmatch See Detail 01/30/20 17:30 01/30/20 01/30/20 15:30 16:50 Troponin I Cancelled < 0.012 Impressions: Chest X-Ray 01/30/20 16:31 IMPRESSION: Stable chronic changes without focal consolidation or other evidence of acute intrathoracic process. Chest/Abdomen CTA 01/31/20 00:00 IMPRESSION: 1. Emphysema 2. Small bilateral pleural effusions with partial atelectasis of both lower lobes, worse on the right. 3. No CT evidence for pulmonary embolism Venous Doppler Study 01/31/20 00:00 IMPRESSION: NO EVIDENCE DVT OR SVT RIGHT OR LEFT ARM. Plan Plan of Treatment: 1. UTI tx: Nitrofurantoin 50mg by PEG tube every 6 hours for 3 more days. 2. Your hemoglobin, or your blood levels, below this required treatment with 2 units packed red blood cells. Your hemoglobin is now at your baseline which is between 9 and 10. Recommend f/u with PCP to monitor values. Time Spent: Greater than 30 Minutes Stroke Is this a Stroke Patient?: No Acute Heart Failure Is this a Heart Failure Patient?: No
== END 2020-02-04 14:48 | disposition home health service (06) | DRG 698 ==
LOC: ER 15:45 → EH 01-31 06:23 → 3S 01-31 13:18 → 5 02-01 16:45
PROVIDERS: ADMIT Student in an Organized Health Care Education/Training Program; ATTEND Physician Assistant
PROC: 30233N1 Transfusion of Nonautologous Red Blood Cells into Peripheral Vein, Percutaneous Approach (ICD-10-PCS; principal; 2020-01-30)
DX: T83.511A Infection and inflammatory reaction due to indwelling urethral catheter, initial encounter (principal); A41.9 Sepsis, unspecified organism; G12.21 Amyotrophic lateral sclerosis; Z99.11 Dependence on respirator [ventilator] status; J96.10 Chronic respiratory failure, unspecified whether with hypoxia or hypercapnia; K92.1 Melena; E87.1 Hypo-osmolality and hyponatremia; Z16.23 Resistance to quinolones and fluoroquinolones; Z16.19 Resistance to other specified beta lactam antibiotics; Z93.0 Tracheostomy status; B95.2 Enterococcus as the cause of diseases classified elsewhere; D50.0 Iron deficiency anemia secondary to blood loss (chronic); N39.0 Urinary tract infection, site not specified; I10 Essential (primary) hypertension; J44.9 Chronic obstructive pulmonary disease, unspecified; M17.0 Bilateral primary osteoarthritis of knee; E86.0 Dehydration; E87.5 Hyperkalemia; Y84.6 Urinary catheterization as the cause of abnormal reaction of the patient, or of later complication, without mention of misadventure at the time of the procedure; L89.151 Pressure ulcer of sacral region, stage 1; Z86.14 Personal history of Methicillin resistant Staphylococcus aureus infection
CPT/HCPCS: 36415; 36430; 71045; 71275; 80048; 80053; 80202; 81001; 82270; 82550; 82565; 82728; 82803; 82962; 83605; 83615; 83735; 84484; 85025; 85027; 85379; 85610; 86140; 86850; 86900; 86901; 86920; 87040; 87077; 87086; 87088; 87150; 87186; 93005; 93010; 93970; 94640; 96360; 96361; 99285; C9113; J0696; J2543; J3370; J3490; J7030; J7050; J7060; J7120; P9016